=== PATIENT | female | born 1945 | race Caucasian/White ===

== ENCOUNTER 2016-09-14 21:04 | Inpatient (IN) | payer MEDICARE, BC ==
[~2016-09-14] VITALS: Ht 154.9 cm; Wt 79.9 kg
[~2016-09-14 21:04] MED LIST: ALEN70TA15 PO; ASPI-650 PO; CELE200C PO; CRAN400C PO; FLUT1DIS23 IH; GUAI600T21 PO; LACT10SO55 PO; LEVO125T75 PO; LOVA10TA63 PO; OLOP30.5 NS; ZAFI20TA5 PO
[2016-09-14] MEDS ORDERED: ONDANSETRON 4 MG INJ IV STA (22:30)
[2016-09-14] MEDS ORDERED: BELLADONNA/PHENOBARBITAL TAB PO STA (22:30)
[2016-09-14] MEDS ORDERED: CEFTRIAXONE 1 GM/50 ML (PMX) 50 ML IVPB ONE (22:30)
[2016-09-14] MEDS ORDERED: morphine 4 MG/ML VIAL IV STA (22:30)
[2016-09-14] MEDS ORDERED: LIDOCAINE/MYLANTA 40 ML BTL PO STA (22:30)
[2016-09-14] MEDS ORDERED: SOD CHLORIDE 0.9% 1,000 ML IV STA (22:30)
[2016-09-14 23:10] LABS: ADD SCAN DIFF NO
[2016-09-14 23:15] LABS: BASOPHILS % 0.4 % (0.0-2.0); EOSINOPHILS # 0.3 10^3/ul (0.0-0.5); EOSINOPHILS % 3.1 % (0.0-7.0); HEMATOCRIT 42.7 % (37.0-47.0); LYMPHOCYTES % 18.8 % (15.0-51.0); MEAN CORPUSCULAR HEMOGLOBIN 31.7 pg (29.0-33.0); MEAN CORPUSCULAR HGB CONC 32.8 g/dl (32.0-37.0); MEAN CORPUSCULAR VOLUME 96.6 fl (82.0-101.0); MONOCYTE # 0.6 10^3/ul (0.3-0.9); MONOCYTES % 5.9 % (0.0-11.0); NEUTROPHIL # 7.7 10^3/ul (1.6-7.5); NEUTROPHILS % 71.4 % (39.0-77.0); PLATELET COUNT 299 10^3/UL (140-415); RED BLOOD COUNT 4.42 10^6/ul (4.20-5.40); RED CELL DISTRIBUTION WIDTH 13.2 % (11.5-14.5); WHITE BLOOD COUNT 10.8 10^3/ul (4.8-10.8)
[2016-09-14 23:25] LABS: ALBUMIN 4.2 g/dl (3.3-4.9); INR 0.94; PROTIME 12.6 Sec (12.2-14.2)
[2016-09-14 23:26] LABS: CHLORIDE 100 mmol/L (97-110); POTASSIUM 4.5 mmol/L (3.5-5.1); SODIUM 143 mmol/L (135-144)
[2016-09-14 23:28] LABS: ANION GAP 19 (8-16); ASPARTATE AMINO TRANSFERASE 33 IU/L (15-46); BILIRUBIN,INDIRECT 0.8 mg/dl (0-1.1); BILIRUBIN,TOTAL 0.8 mg/dl (0.2-1.3); CARBON DIOXIDE 29 mmol/L (21-31); CREATININE 0.65 mg/dl (0.44-1.00)
[2016-09-14 23:29] LABS: ALANINE AMINOTRANSFERASE 30 IU/L (13-69); ALBUMIN/GLOBULIN RATIO 1.44; ALKALINE PHOSPHATASE 69 IU/L (42-121); BLOOD UREA NITROGEN 14 mg/dl (7-20); CALCIUM 9.8 mg/dl (8.4-10.2); GLUCOSE 106 mg/dl (70-220); TOTAL PROTEIN 7.1 g/dl (6.1-8.1)
[2016-09-14 23:45] LABS: ADD UMIC YES; URINE BILIRUBIN (Dip) NEGATIVE (NEGATIVE); URINE BLOOD (Dip) TRACE (NEGATIVE); URINE COLOR YELLOW (YELLOW); URINE GLUCOSE (Dip) NEGATIVE (NEGATIVE); URINE KETONES (Dip) 40 (NEGATIVE); URINE LEUKOCYTE ESTERASE (Dip) NEGATIVE (NEGATIVE); URINE NITRITE (Dip) NEGATIVE (NEGATIVE); URINE TOTAL PROTEIN (Dip) NEGATIVE (NEGATIVE); URINE UROBILINOGEN (Dip) 0.2 E.U./dL (0.1-1.0)
[2016-09-14 23:59] LABS: SQUAMOUS EPITHELIAL CELL,UR RARE; URINE RBCS 0-2 /HPF (0)
[2016-09-15 00:01] LABS: TROPONIN-I < 0.012 ng/ml (0.00-0.12)
--- NOTE | 2016-09-15 00:31 | RADRPT ---
PROCEDURE: CT ABDOMEN/PELVIS WITHOUT CONTRAST CLINICAL INDICATION: 71-year-old female with abdominal pain. TECHNIQUE: The study was performed utilizing a GE Xradiapeed VCT 64-slice CT scanner. Direct axia l sections were obtained through the abdomen and pelvis without the use of intravenous contrast mate rial. Sagittal and coronal reformations were obtained. Automated exposure control and iterative max nstruction techniques were utilized for this examination. [facility] CTD/vol = 16.9 mGy; Total Exam DLP = 960.2 mGy-cm. COMPARISON: None. FINDINGS: There is mild bibasilar subsegmental atelectasis and/or scarring. Calcifications are seen within th e atelectatic left lung base. There is no evidence for significant pleural effusion. There is mild free fluid surrounding the right lobe of the liver as well as in the peritoneum and pelvis. The li filippo has a normal size and contour without focal areas of abnormal density. No intrahepatic nor extra hepatic biliary ductal dilatation is seen. The gallbladder is distended and contains small layering gallstones without significant wall thickening. The pancreas is without areas of abnormal attenuati on. The spleen is identified and has a normal size without abnormal density. The adrenal glands are unremarkable. The kidneys are without abnormal density. No hydroureteronephrosis nor nephroureterol ithiasis is evident. The urinary bladder contains urine. There is moderate hiatal hernia. There is evidence for prior gastric bypass surgery. There is a mesh within the supraumbilical mid ventral abdominal wall from prior hernia repair. There is zfeq-zj-jdoqcymp dilated loops of small bowel wit h fecalization with transition point within the mid abdomen at the level of the mesh most likely sec ondary to adhesions resulting in a small bowel obstruction which may be partial. Mild diffuse infilt ration of the mesentery within this region. The small bowel distal to this appears to be decompress ed. There is mild retained stool within the ascending colon. Multiple diverticula are seen scatter ed throughout the entire colon without surrounding inflammatory changes. The appendix is visualized and is without abnormal thickening or surrounding inflammatory reaction. The uterus is unremarkable. The aortoiliac vessels are diffusely calcified but without aneurysmal dilatation. Degenerative ole nges are seen within the spine. Moderate degenerative changes are seen within the right hip joint w ith subchondral this is sclerosis. There is a left hip arthroplasty present. IMPRESSION: 1. Mild bibasilar subsegmental atelectasis and/or scarring. 2. Mild free fluid throughout the abdomen and pelvis. 3. Cholelithiasis. 4. Moderate hiatal hernia. 5. Status post gastric bypass. 6. Mesh supraumbilical mid ventral abdominal wall from prior hernia repair. 7. Tuqm-lq-kzzmcqsmfe dilated loops of proximal small bowel with fecalization extending to mid abdo men where there is infiltration of the mesentery and transition point consistent with a small bowel obstruction which may be partial. This most likely is secondary to adhesions. 8. Diffuse colonic diverticulosis. 9. No CT evidence for appendicitis. 10. Vascular calcifications. 11. Degenerative changes within the spine and right hip joint. 12. Status post left hip arthroplasty. .Isidoro Haro MD, MD Date Time Electronically viewed and signed by .Isidoro Haro MD, MD on 09/15/2016 00:30 .M/
[2016-09-15] MEDS ORDERED: PIPER-TAZO 3.375 GM IV (PMX) 100 ML IVPB ONE (01:00)
--- NOTE | 2016-09-15 01:21 | ERA ---
ER Documentation Chief Complaint Date/Time DATE: 09/15/16 TIME: 01:15 Chief Complaint abdominal pain x 1 day. also c/o painful urination HPI This is a 71-year-old woman complaining of diffuse severe abdominal pain and cramping throughout the day mostly located to the epigastrium. She also had an episode of vomiting after lunch and could not eat dinner. She has a long history of gastroesophageal reflux disease, gastritis, and recent left inguinal herniorrhaphy about 3 months ago. Patient suspects she has a urinary tract infection as well due to recent dysuria. Patient denies chest pain or shortness of breath, no fevers or chills, no diarrhea, no headache or blurry vision. ROS All systems reviewed and are negative except as per history of present illness. Medications Home Meds Reported Medications Cranberry (Cranberry) 400 Mg Capsule, 400 MG PO EVERY THREE DAYS 04/09/12 Guaifenesin* (Mucinex*) 600 Mg Tablet.sa, 600 MG PO BID 04/09/12 Aspirin (Aspirin) 81 Mg Tablet, 81 MG PO DAILY 04/09/12 Olopatadine* (Patanase* Nasal) 30.5 Gm [place].pump, 30.5 GM NS BID 04/09/12 Lactulose (Lactulose) 10 G/15 Ml Solution, 10 G PO BID 04/09/12 Alendronate Sodium (Fosamax) 70 Mg Tablet, 70 MG PO every 2weeks 04/09/12 Fluticasone/Salmeterol (Advair 250-50 Diskus) 1 Disk W/Dev Disk.w.dev, 1 DISK IH BID 04/09/12 Celecoxib* (Celebrex*) 200 Mg Capsule, 200 MG PO TID 04/09/12 Lovastatin* (Lovastatin*) 10 Mg Tablet, 10 MG PO DAILY 04/09/12 Zafirlukast* (Accolate*) 20 Mg Tablet, 20 MG PO BID 04/09/12 Levothyroxine Sodium* (Levothyroxine Sodium*) 125 Mcg Tablet, 125 MCG PO DAILY 04/09/12 Allergies Allergies: Coded Allergies: No Known Allergy (Unverified , 09/14/16) PMhx/Soc Gastroesophageal reflux disease, left inguinal herniorrhaphy in June 2016, hypothyroidism, asthma, cholelithiasis History of Surgery: Yes (s/p ventral hernia repair) Anesthesia Reaction: Yes Hx Neurological Disorder: No Hx Respiratory Disorders: Yes (ASTHMA) Hx Cardiac Disorders: No Hx Psychiatric Problems: No Hx Miscellaneous Medical Probl: Yes (L inguinal hernia,gastric bypass, hypothyroidims,asthma,rosacea,hay fever,GE) Hx Alcohol Use: Yes (FORMER) Hx Substance Use: No Hx Tobacco Use: No Smoking Status: Never smoker FmHx Family History: No diabetes Physical Exam Vitals Vital Signs Date Time Temp Pulse Resp B/P Pulse Ox O2 Delivery O2 Flow Rate FiO2 09/14/16 21:11 97.8 116 20 122/72 98 Physical Exam GENERAL: Well-developed, well-nourished, well-hydrated, in no apparent distress , looks nontoxic in appearance. Afebrile HEENT: Moist mucous membranes, pink conjunctiva, no cervical spine tenderness or step-off deformities, no goiter, no jaundice or icterus, extraocular movements intact without pain. No submandibular induration, and no pharyngeal erythema NEURO: Alert and oriented 3, cranial nerves II through XII intact bilaterally, pupils equal round reactive to light, no focal deficits or facial asymmetry, sensation intact distally Strength 5/5 in upper and lower extremities bilaterally CARDIAC: Regular rate and rhythm, no murmurs rubs or gallops LUNGS: Clear bilaterally no wheezing crackles or stridor ABDOMEN: Mild to moderate tenderness to touch throughout the abdomen with voluntary guarding, no rigidity or rebound, no psoas sign no obturator sign. Normoactive bowel sounds SKIN: Warm and dry to touch, no abrasions, contusions, or hematomas, no lacerations, no ecchymosis, no target lesions, and without ulcers EXTREMITIES: No clubbing cyanosis or edema, calves are bilaterally symmetrical, no Homans sign, no popliteal cord sign. Distal pulses equal and bilateral PSYCH: Normal affect without agitation or irritability Result Diagram: 09/14/16225309/14/162253 Results 24 hrs Laboratory Tests Test 09/14/16 22:54 09/14/16 23:20 Alanine Aminotransferase (ALT/SGPT) 30IU/L Albumin 4.2g/dl Albumin/Globulin Ratio 1.44 Alkaline Phosphatase 69IU/L Anion Gap 19 Aspartate Amino Transf (AST/SGOT) 33IU/L Basophils # 0.010^3/ul Basophils % 0.4% Blood Urea Nitrogen 14mg/dl Calcium Level 9.8mg/dl Carbon Dioxide Level 29mmol/L Chloride Level 100mmol/L Creatinine 0.65mg/dl Direct Bilirubin 0.00mg/dl Eosinophils # 0.310^3/ul Eosinophils % 3.1% Globulin 2.90g/dl Glucose Level 106mg/dl Hematocrit 42.7% Hemoglobin 14.0g/dl INR International Normalized Ratio 0.94 Indirect Bilirubin 0.8mg/dl Lipase 58U/L Lymphocytes # 2.010^3/ul Lymphocytes % 18.8% Mean Corpuscular Hemoglobin 31.7pg Mean Corpuscular Hemoglobin Concent 32.8g/dl Mean Corpuscular Volume 96.6fl Mean Platelet Volume 10.0fl Monocytes # 0.610^3/ul Monocytes % 5.9% Neutrophils # 7.710^3/ul Neutrophils % 71.4% Nucleated Red Blood Cells # 0.010^3/ul Nucleated Red Blood Cells % 0.0/100WBC Platelet Count 48381^3/UL Potassium Level 4.5mmol/L Prothrombin Time 12.6Sec Prothrombin Time Ratio 1.0 Red Blood Count 4.4210^6/ul Red Cell Distribution Width 13.2% Sodium Level 143mmol/L Total Bilirubin 0.8mg/dl Total Protein 7.1g/dl Troponin I < 0.012ng/ml White Blood Count 10.810^3/ul Urine Bilirubin NEGATIVE Urine Clarity CLEAR Urine Color YELLOW Urine Glucose NEGATIVE% Urine Hemoglobin TRACE Urine Ketones 40 Urine Leukocyte Esterase NEGATIVE Urine Microscopic RBC 0-2/HPF Urine Microscopic WBC NONE SEEN/HPF Urine Nitrite NEGATIVE Urine Specific [place] 1.025 Urine Squamous Epithelial Cells RARE Urine Total Protein NEGATIVE Urine Urobilinogen 0.2 E.U./dL Urine pH 5.5 Current Medications Medications (Trade) Dose Ordered Sig/Idris Route PRN Reason Start Time Stop Time Status Last Admin Dose Admin Sodium Chloride (NS) 1,000 ml @ 1,000 mls/hr Q1H STAT IV 09/14/16 22:30 09/14/16 23:29 DC 09/14/16 22:44 Morphine Sulfate (morphine) 4 mg ONCE STAT IV 09/14/16 22:30 09/14/16 22:32 DC 09/14/16 22:43 Ondansetron HCl (Zofran Inj) 4 mg ONCE STAT IV 09/14/16 22:30 09/14/16 22:32 DC 09/14/16 22:43 Miscellaneous Medication (Gi Cocktail (2)) 40 ml ONCE STAT PO 09/14/16 22:30 09/14/16 22:32 DC 09/14/16 22:44 Belladonna/ Phenobarbital 2 tab 2 tab ONCE STAT PO 09/14/16 22:30 09/14/16 22:32 DC 09/14/16 22:44 Ceftriaxone Sodium 50 ml @ 100 mls/hr ONCE ONCE IVPB 09/14/16 22:30 09/14/16 22:59 DC 09/14/16 22:58 Piperacillin Sod/ Tazobactam Sod (Zosyn 3.375gm/ 100 ml (Pmx)) 100 ml @ 200 mls/hr ONCE ONCE IVPB 09/15/16 01:00 09/15/16 01:00 DC Procedures/MDM IV line was established patient was placed on consumer safety inspector rhythm strip revealed a sinus rhythm at about 80 bpm with upright P and T waves. Patient was afebrile. Blood and urine cultures have been ordered results are pending I will follow-up. I administered 1 L normal saline intravenously, morphine 4 mg IV, Zofran 4 mg IV , and a GI cocktail 50 cc p.o. with good response. Patient was concerned for urinary tract infection and I treated her here with ceftriaxone 1 g IV. EKG performed, read by me revealed a normal sinus rhythm at 85 bpm, normal axis , with a right bundle teresa block QRS duration 120 ms, no concerning ST elevations or depressions noted. CBC and electrolytes were normal, liver function tests were normal, troponin was negative. Urine analysis was negative for infection. CT scan of the abdomen and pelvis was performed revealing a small bowel obstruction in the mid abdomen with mild intra-abdominal free fluid and cholelithiasis. Please refer to radiologist dictation for full report. I ordered NG tube placement. Patient's vital signs are normal and she remains afebrile although given her physical exam findings and symptoms today she will be admitted to [facility] for continued medical management and surgical consultation. I spoke to the patient's PMD Dr. Rodas and he agreed to plan. We will admit the patient for continued medical management and surgical consultation. Departure Diagnosis: Primary Impression: Abdominal pain Qualified Code: R10.84 - Generalized abdominal pain Additional Impressions: Vomiting Qualified Code: R11.2 - Non-intractable vomiting with nausea, unspecified vomiting type Small bowel obstruction due to adhesions Condition: RAVEN Capone MD Sep 15, 2016 01:21
[2016-09-15] MEDS ORDERED: LIDOCAINE 2% JELLY 5 ML TOP ONE (01:30)
[2016-09-15 03:17] VITALS: Ht 154.9 cm; Wt 79.9 kg
[2016-09-15 03:36] VITALS: BP 140/73; RESP 18
[2016-09-15 03:59] VITALS: BP 140/73; PULSE 92; RESP 18
--- NOTE | 2016-09-15 04:08 | RADRPT ---
PROCEDURE: CHEST - 1 VIEW CLINICAL INDICATION: 71-year-old female for nasogastric tube placement. TECHNIQUE: A single frontal AP semi-erect view of the chest was performed portably. The images we re reviewed on a PACS workstation. COMPARISON: CT abdomen/pelvis September 15, 2016. FINDINGS: There is a nasogastric tube identified with the distal aspect coiled at the esophagogastric junction region. The cardiomediastinal silhouette is within normal limits. The thoracic aortic arch is jennifer cified. There is mild bibasilar subsegmental atelectasis. There is no evidence for an infiltrate. There is no evidence for congestive heart failure. There is no evidence for pneumothorax. The osseo us structures are intact. IMPRESSION: 1. Nasogastric tube with the distal aspect coiled in the patients hiatal hernia at the esophagogast sara junction region. 2. Calcified thoracic aortic arch. 3. Mild bibasilar subsegmental atelectasis. CALL REPORT: A call report was made to [facility] ER Dr. Dhillon on September 15, 2016 at 04:04 a.m. .Isidoro Haro MD, MD Date Time Electronically viewed and signed by .Isidoro Haro MD, on 09/15/2016 04:08 .M/
[2016-09-15] MEDS ORDERED: ACETAMINOPHEN 650 MG SUPP PR PRN (04:30)
[2016-09-15] MEDS ORDERED: HYDROmorphONE 1 MG/ML SYG IV PRN (04:30)
[2016-09-15] MEDS ORDERED: NACL 0.9% 3 ML SYG IV SCH (04:30)
[2016-09-15] MEDS: DEXTROSE 5%-0.45% NACL 1,000 ML IV SCH ×3 (04:44→21:12)
[2016-09-15] MEDS: ONDANSETRON 4 MG INJ IV PRN (05:32)
[2016-09-15] MEDS: LEVOTHYROXINE 100 MCG VIAL IV SCH (05:33)
[2016-09-15] MEDS ORDERED: PANTOPRAZOLE 40 MG INJ IV SCH (06:00)
[2016-09-15 07:30] VITALS: BP 131/79; RESP 16
[2016-09-15] MEDS: HYDROmorphONE 1 MG/ML SYG IV PRN ×4 (08:32→22:20)
[2016-09-15] MEDS: SALMETEROL/FLUTICASONE 250/50 INHA INH SCH ×2 (08:35→21:11)
[2016-09-15 08:45] LABS: BASOPHILS % 0.1 % (0.0-2.0); HEMATOCRIT 43.5 % (37.0-47.0); HEMOGLOBIN 14.8 g/dl (12.0-16.0); LYMPHOCYTES # 0.6 10^3/ul (0.8-2.9); LYMPHOCYTES % 5.8 % (15.0-51.0); MEAN CORPUSCULAR HGB CONC 34.1 g/dl (32.0-37.0); MEAN CORPUSCULAR VOLUME 93.8 fl (82.0-101.0); MONOCYTE # 0.3 10^3/ul (0.3-0.9); MONOCYTES % 3.2 % (0.0-11.0); NEUTROPHIL # 9.3 10^3/ul (1.6-7.5); NEUTROPHILS % 90.9 % (39.0-77.0); PLATELET COUNT 282 10^3/UL (140-440); RED BLOOD COUNT 4.64 10^6/ul (4.20-5.40); RED CELL DISTRIBUTION WIDTH 13.6 % (11.5-14.5); UNCORRECTED WBC 10.2 10^3/ul (4.8-10.8); WHITE BLOOD COUNT 10.2 10^3/ul (4.8-10.8)
[2016-09-15 08:48] LABS: CONDITION 1; LH ANALYZER COMMENTS 1
[2016-09-15 08:54] LABS: BILIRUBIN,INDIRECT 0.8 mg/dl (0-1.1); BILIRUBIN,TOTAL 0.8 mg/dl (0.2-1.3); CREATININE 0.53 mg/dl (0.44-1.00); TOTAL PROTEIN 6.5 g/dl (6.1-8.1)
[2016-09-15 08:55] LABS: MAGNESIUM 2.1 mg/dl (1.7-2.5)
[2016-09-15 09:28] LABS: ALBUMIN 3.7 g/dl (3.3-4.9); ALBUMIN/GLOBULIN RATIO 1.32; POTASSIUM 4.5 mmol/L (3.5-5.1)
--- NOTE | 2016-09-15 10:18 | PREOPHP ---
DATE OF ADMISSION: 09/15/2016 REASON FOR ADMISSION: Abdominal pain. HISTORY OF PRESENT ILLNESS: This 71-year-old female was in her usual state of health until yesterda y when she developed diffuse abdominal pain. The patient initially went to an urgent care center an d then was referred here to the emergency room at [facility]. The pain was diffus e, severe, cramping, mostly located in the epigastrium. She now describes it as diffuse. She also had an episode of vomiting after lunch and could not eat dinner. She has a long history of gastroes ophageal reflux disease, gastritis and did have a left inguinal hernia repair about [address] Joshua. The patient denies any chest pain, shortness of breath, fever, chills. She said she d id have a bowel movement yesterday and she has been having bowel movements. She does have constipat ion and is on stool softeners and/or daily lactulose. CURRENT MEDICATIONS: Includes the following 1. Cranberry capsules of 400 mg every 3 days. 2. Mucinex 600 mg twice a day. 3. Aspirin 81 mg a day. 4. Patanase nasal spray in each nostril twice a day. 5. Lactulose 10 grams twice a day. 6. Alendronate 70 mg every 2 weeks. 7. Fluticasone, salmeterol or Advair 250/50 one inhalation twice a day. 8. Celebrex 200 mg a day. 9. Lovastatin 10 mg a day. 10. Accolate 20 mg twice a day. 11. Levothyroxine 125 mcg a day. PAST MEDICAL HISTORY: Remarkable for gastric bypass surgery in 2004, hypothyroidism, asthma, rosace a, increased eye pressure, hayfever, gastroesophageal reflux disease. ALLERGIES: SULFA. PAST SURGICAL HISTORY: Gastric bypass surgery in 2004, plastic surgery to remove skin from abdomen, tonsillectomy, left inguinal hernia repair by laparoscopic procedure 06/15/2016. FAMILY HISTORY: Father unknown. Mother unknown. SOCIAL HISTORY: The patient does not smoke. 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 She does not drink alcohol. 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 REVIEW OF SYSTEMS: Essentially unremarkable except for that mentioned above. In addition, : She has been having some frequency of urination over the past several weeks with urgency. PHYSICAL EXAMINATION: GENERAL: At this time reveals a well-developed female in no apparent distress. VITAL SIGNS: Temperature 98.9, pulse of 93, respirations 16, blood pressure 131/79, O2 saturation 9 8% on room air. HEENT: Head normocephalic. EYES: Extraocular muscles intact. NOSE AND MOUTH: Normal. NECK: Supple. No neck vein distention. LUNGS: Clear to auscultation. HEART: Regular rhythm. No murmurs, gallops or rubs. ABDOMEN: Distended. She is tender with fullness in the left upper abdomen and in the left lower ab domen. Bowel sounds are hypoactive. EXTREMITIES: She has no peripheral edema. IMPRESSION: 1. Small-bowel obstruction. The patient presents with abdominal pain since yesterday. A CAT scan of the abdomen was done which shows dilated loops of small bowel consistent with a bowel obstruction . The radiologist commented that this may be a partial small-bowel obstruction. The patient has bolden d several abdominal surgeries and certainly is at risk of having adhesions and small-bowel obstructi on. 2. Asthma. 3. Hypothyroidism. 4. Gastroesophageal reflux disease. PLAN: 1. Keep patient n.p.o. 2. IV fluids. 3. Gastroenterology consultation with Dr. Meza and surgical consultation with Dr. Joshua. 4. The patient has an NG tube in place; however, it is curled in her hiatal hernia and is not in th e stomach. This will be removed for now until the analysis consultant is able to see her and then tr y and replace it if he thinks it is necessary. I did discuss of all of this with the patient and wi th the patient's daughter. Dictated By: ANNIE STOUT MD, ND/GINA Conf#: [id number] DID#: [id number]
--- NOTE | 2016-09-15 12:37 | CONS ---
Date/Time of Note Date/Time of Note DATE: 09/15/16 TIME: 12:26 Assessment/Plan Assessment/Plan Chief Complaint/Hosp Course IMPRESSION: 1. Small-bowel obstruction: A CAT scan of the abdomen was done which shows dilated loops of small bowel consistent with a bowel obstruction. Likely due to adhesions secondary to several abdominal surgeries and certainly is at risk of having adhesions and small-bowel obstruction. 2. Gastroesophageal reflux disease. 3. nausea and vomiting secondary to #1 4. hiatal hernia, preventing insertion of NGT PLAN: 1. SBFT 2. continue IV fluids. 3. increase PPI to bid dosing 4. if n/v not improving and SBFT showed persistence of SBO, will do EGD with placement of NGT for decompression. Problems: Consultation Date/Type/Reason Admit Date/Time Sep 15, 2016 at 01:10 Type of Consultation: GI Hx of Present Illness 71-year-old female admitted for SBO. 2 days ago, patient developed diffuse, severe, cramping, mostly located in the epigastrium. She also had nausea and vomiting after lunch and could not eat dinner. She has a long history of gastroesophageal reflux disease, gastritis, seen by Dr. Baron and given omeprazole, but patient says omeprazole is not helping with her epigastric pain. She also has left inguinal hernia repair about [address] Joshua. The patient denies any chest pain, shortness of breath, fever, chills. Last BM was 2 days ago. She does have constipation and is on stool softeners and/or daily lactulose. Currently she is not passing gas or having BM. She is no longer nauseous now given her NPO status. All point ROS administered, pertinent positives and negatives in HPI otherwise negative. Past Medical History asthma, constipation, hayfever, glaucoma Medical History: GERD, hypothyroid Past Surgical History 1. gastric bypass surgery in 2004 2. tonsillectomy 3. left inguinal hernia repari 06/15/16 Family History Significant Family History: no pertinent family hx Social History Alcohol Use: none Smoking Status: Former smoker Drug Use: none Exam/Review of Systems Vital Signs Vitals Vital Signs Date Time Temp Pulse Resp B/P Pulse Ox O2 Delivery O2 Flow Rate FiO2 09/15/16 07:30 98.9 93 16 131/79 98 09/15/16 03:59 Room Air Intake and Output 09/14/16 09/14/16 09/15/16 15:00 23:00 07:00 Intake Total 31 ml Output Total 100 ml Balance -69 ml Exam Constitutional: alert, oriented, well developed Psych: nl mood/affect, no complaints Head: atraumatic, normocephalic Eyes: nl conjunctiva, nl lids, nl sclera ENMT: mucosa pink and moist, nl external ears & nose, nl lips & teeth, nl nasal mucosa & septum Neck: non-tender, supple Respiratory: clear to auscultation, normal air movement Cardiovascular: nl pulses, regular rate and rhythm Gastrointestinal: bowel sounds (reduced), distended, soft, tender (epigastric, left sided, lower abdomen) Neurological: nl mental status, nl speech, nl strength Results Result Diagram: 09/15/1630 09/15/16 0830 Results 24 hrs Laboratory Tests Test 09/14/16 22:54 09/14/16 23:20 09/15/16 08:30 Alanine Aminotransferase (ALT/SGPT) 30 30 Albumin 4.2 3.7 Albumin/Globulin Ratio 1.44 1.32 Alkaline Phosphatase 69 63 Anion Gap 19 H 16 Aspartate Amino Transf (AST/SGOT) 33 30 Basophils # 0.0 0.0 Basophils % 0.4 0.1 Blood Urea Nitrogen 14 13 Calcium Level 9.8 9.0 Carbon Dioxide Level 29 25 Chloride Level 100 104 Creatinine 0.65 0.53 Direct Bilirubin 0.00 0.00 Eosinophils # 0.3 0.0 Eosinophils % 3.1 0.0 Globulin 2.90 2.80 Glucose Level 106 177 Hematocrit 42.7 # 43.5 Hemoglobin 14.0 # 14.8 INR International Normalized Ratio 0.94 Indirect Bilirubin 0.8 0.8 Lipase 58 Lymphocytes # 2.0 0.6 L Lymphocytes % 18.8 5.8 L Mean Corpuscular Hemoglobin 31.7 32.0 Mean Corpuscular Hemoglobin Concent 32.8 34.1 Mean Corpuscular Volume 96.6 93.8 Mean Platelet Volume 10.0 # 8.0 Monocytes # 0.6 0.3 Monocytes % 5.9 3.2 Neutrophils # 7.7 H 9.3 H Neutrophils % 71.4 90.9 H Nucleated Red Blood Cells # 0.0 0.0 Nucleated Red Blood Cells % 0.0 0.0 Platelet Count 299 282 # Potassium Level 4.5 4.5 Prothrombin Time 12.6 Prothrombin Time Ratio 1.0 Red Blood Count 4.42 # 4.64 Red Cell Distribution Width 13.2 13.6 Sodium Level 143 140 Total Bilirubin 0.8 0.8 Total Protein 7.1 6.5 Troponin I < 0.012 White Blood Count 10.8 10.2 Urine Bilirubin NEGATIVE Urine Clarity CLEAR Urine Color YELLOW Urine Glucose NEGATIVE Urine Hemoglobin TRACE Urine Ketones 40 Urine Leukocyte Esterase NEGATIVE Urine Microscopic RBC 0-2 Urine Microscopic WBC NONE SEEN Urine Nitrite NEGATIVE Urine Specific [place] 1.025 Urine Squamous Epithelial Cells RARE Urine Total Protein NEGATIVE Urine Urobilinogen 0.2 E.U./dL Urine pH 5.5 Magnesium Level 2.1 Medications Medications Current Medications Dextrose/Sodium Chloride (D5-1/2ns) 1,000 ml @ 125 mls/hr Q8H IV Last administered on 09/15/16 12:08; Admin Dose 125 MLS/HR; Start 09/15/16 at 04:11 Ondansetron HCl (Zofran Inj) 4 mg Q6H PRN IV NAUSEA AND/OR VOMITING Last administered on 09/15/16 05:32; Admin Dose 4 MG; Start 09/15/16 at 04:30 Acetaminophen (Tylenol Supp) 650 mg Q6H PRN AL PAIN LEVEL 1-3 OR FEVER; Start 09/15/16 at 04:30 Pantoprazole (Protonix Iv) 40 mg DAILY@06 IV Last administered on 09/15/16 05: 25; Admin Dose 40 MG; Start 09/15/16 at 06:00 Salmeterol Xinafoate/ Fluticasone (Advair 250/50 Diskus) rinse mouth out after e... BID INH Last administered on 09/15/16 08:35; Admin Dose 1 INH; Start 06/21 at 09:00; Stop 09/24/16 at 08:59 Miscellaneous Information 30.5 gm BID NS ; Start 09/15/16 at 09:00; Status UNV Levothyroxine Sodium (Synthroid Iv) 50 mcg DAILY@06 IV Last administered on 05:33; Admin Dose 50 MCG; Start 09/15/16 at 06:00 Hydromorphone HCl (Dilaudid) 1 mg Q4H PRN IV SEVERE PAIN LEVEL 7-10 Last administered on 09/15/16t 08:32; Admin Dose 1 MG; Start 09/15/16 at 08:30 RAVEN CHANEY MD Sep 15, 2016 12:37
[2016-09-15] MEDS: PANTOPRAZOLE 40 MG INJ IV SCH (17:58)
[2016-09-15 21:03] VITALS: BP 93/52; RESP 18
[2016-09-16] MEDS: HYDROmorphONE 1 MG/ML SYG IV PRN ×5 (02:21→19:58)
[2016-09-16] MEDS: LEVOTHYROXINE 100 MCG VIAL IV SCH (05:34)
[2016-09-16] MEDS: DEXTROSE 5%-0.45% NACL 1,000 ML IV SCH ×3 (05:34→20:11)
[2016-09-16] MEDS: PANTOPRAZOLE 40 MG INJ IV SCH ×2 (05:35→19:57)
[2016-09-16 08:03] VITALS: BP 99/55; RESP 17
--- NOTE | 2016-09-16 08:54 | CONS ---
DATE OF ADMISSION: 09/15/2016 DATE OF CONSULTATION: 09/15/2016 TYPE OF CONSULTATION: Surgical. REFERRING PHYSICIAN: Leonel Rodas MD CHIEF COMPLAINT: 1. Abdominal pain with nausea and vomiting. 2. Possible partial small-bowel obstruction. 3. BMI of 33. HISTORY OF PRESENT ILLNESS: Ms. Kylie Hall is a 71-year-old female with multiple comorbidities who is well known to me. She had a laparoscopic ventral and inguinal hernia repair on 06/15/2016 by my self. She presents, however, with abdominal pain that is diffuse since yesterday, associated with c rampy, severe pain; however, mostly in the epigastrium. There is also associated nausea and vomitin g that is nonbilious, nonbloody. No dysuria. She had a bowel movement and flatus yesterday. She d oes have a history of constipation. No dysuria or vaginal discharge. No chest pain, no shortness o f breath. No fevers or chills. No bloating. No trauma or sick contacts. PAST MEDICAL HISTORY: 1. Obesity, currently BMI of 33. 2. Hyperthyroidism. 3. Asthma. 4. Rosacea. 5. Increase eye pressure. 6. Hayfever. 7. GERD. 8. Constipation. 9. Hernias. PAST SURGICAL HISTORY: 1. Gastric bypass, 2004. 2. Laparoscopic ventral and inguinal hernia repair, 06/15/2016. 3. Abdominoplasty. 4. Tonsillectomy. FAMILY HISTORY: Noncontributory. SOCIAL HISTORY: No current alcohol, drugs or tobacco. However used recreational drugs and alcohol many years ago. 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 REVIEW OF SYSTEMS: A 12-point of systems negative for unless addressed in the HPI. PHYSICAL EXAMINATION: VITAL SIGNS: Temperature is 98.9, pulse 90s, blood pressure 131/79. GENERAL: No acute distress, comfortable, obese. HEENT: Pupils equal, reactive. No scleral icterus. Mucous membranes are moist. NECK: Supple, no crepitus, no JVD. PULMONARY: Normal respiratory effort. No wheezing. CARDIAC: S1, S2 present and irregular. ABDOMEN: Soft, minimally distended. Tender mostly on the left side. No rebound, no guarding, not rigid. No palpable hernias. EXTREMITIES: No edema. VASCULAR: Capillary refill is 2 seconds. NEUROLOGIC: Alert, oriented, moves all 4 extremities grossly. LABORATORY AND RADIOGRAPHIC: As per chart and HPI. No leukocytosis. No anemia. Chemistries withi n normal limits. ASSESSMENT AND PLAN: 1. Abdominal pain with nausea, vomiting, with CT findings suggestive of possible partial bowel obst ruction versus ileus. Continue n.p.o. Will recommend a small bowel follow through. This is probab ly adhesive in nature. Recommend out of bed and ambulation. 2. Hypothyroidism, please replete hormones. 3. Obesity, status post gastric bypass. Encouraged eventual nutrition optimization. Encourage exe rcise. 4. Gastroesophageal reflux disease history. Continue diet and lifestyle optimization. 5. Asthma. Continue medical management. Dictated By: SURY RAMIREZ/GINA Conf#: [id number] DID#: [id number]
[2016-09-16] MEDS: OLOPATADINE NS SCH ×2 (09:00→21:00)
[2016-09-16] MEDS: SALMETEROL/FLUTICASONE 250/50 INHA INH SCH ×2 (10:01→20:31)
[2016-09-16] MEDS: OLOPATADINE XX SCH ×2 (11:30→19:30)
[2016-09-16] MEDS: [UNRECOGNIZED DRUG - OTHER] XX SCH ×2 (11:30→19:30)
[2016-09-16 11:50] LABS: BASOPHILS % 0.4 % (0.0-2.0); EOSINOPHILS # 0.1 10^3/ul (0.0-0.5); EOSINOPHILS % 0.9 % (0.0-7.0); HEMATOCRIT 39.6 % (37.0-47.0); HEMOGLOBIN 13.2 g/dl (12.0-16.0); LYMPHOCYTES # 1.4 10^3/ul (0.8-2.9); LYMPHOCYTES % 13.9 % (15.0-51.0); MEAN CORPUSCULAR HEMOGLOBIN 31.8 pg (29.0-33.0); MEAN CORPUSCULAR HGB CONC 33.4 g/dl (32.0-37.0); MEAN CORPUSCULAR VOLUME 95.2 fl (82.0-101.0); MONOCYTE # 0.8 10^3/ul (0.3-0.9); NEUTROPHIL # 7.7 10^3/ul (1.6-7.5); NEUTROPHILS % 76.8 % (39.0-77.0); PLATELET COUNT 261 10^3/UL (140-440); RED BLOOD COUNT 4.16 10^6/ul (4.20-5.40); RED CELL DISTRIBUTION WIDTH 14.4 % (11.5-14.5); UNCORRECTED WBC 10.1 10^3/ul (4.8-10.8); WHITE BLOOD COUNT 10.1 10^3/ul (4.8-10.8)
[2016-09-16 11:51] LABS: ALBUMIN 2.8 g/dl (3.3-4.9)
[2016-09-16 11:52] LABS: POTASSIUM 5.4 mmol/L (3.5-5.1)
[2016-09-16 11:54] LABS: ALBUMIN/GLOBULIN RATIO 1.21; BILIRUBIN,INDIRECT 0.6 mg/dl (0-1.1); BILIRUBIN,TOTAL 0.6 mg/dl (0.2-1.3); CREATININE 0.59 mg/dl (0.44-1.00); TOTAL PROTEIN 5.1 g/dl (6.1-8.1)
[2016-09-16 11:55] LABS: CALCIUM 8.3 mg/dl (8.4-10.2)
[2016-09-16 12:10] LABS: CONDITION 1
--- NOTE | 2016-09-16 14:27 | CONS ---
Date/Time of Note Date/Time of Note DATE: 09/16/16 TIME: 14:24 Assessment/Plan Assessment/Plan Chief Complaint/Hosp Course IMPRESSION: 1. Small-bowel obstruction: A CAT scan of the abdomen was done which shows dilated loops of small bowel consistent with a bowel obstruction. Likely due to adhesions secondary to several abdominal surgeries and certainly is at risk of having adhesions and small-bowel obstruction. 2. Gastroesophageal reflux disease. 3. nausea and vomiting secondary to #1 4. hiatal hernia, preventing insertion of NGT PLAN: 1. Ordered SBFT. Hopefully SBFT will help to decompress the pSBO 2. continue IV fluids. 3. Continue PPI at bid dosing 4. if n/v not improving and SBFT showed persistence of SBO, will do EGD with placement of NGT for decompression. 5. Dr. Humphreys to resume care of this patient tomorrow. Problems: Consultation Date/Type/Reason Admit Date/Time Sep 15, 2016 at 01:10 Initial Consult Date Type of Consultation: GI 24 HR Interval Summary Free Text/Dictation no nausea and vomiting but not eating, still not passing gas or having BM Exam/Review of Systems Vital Signs Vitals Vital Signs Date Time Temp Pulse Resp B/P Pulse Ox O2 Delivery O2 Flow Rate FiO2 09/16/16 08:03 98.1 85 17 99/55 99 09/15/16 20:18 21 09/15/16 03:59 Room Air Intake and Output 09/15/16 09/15/16 09/16/16 15:00 23:00 07:00 Intake Total 1000 ml 1000 ml Output Total 200 ml Balance 1000 ml 800 ml Exam Constitutional: alert, oriented, well developed Psych: nl mood/affect, no complaints Head: atraumatic, normocephalic Eyes: EOMI, nl conjunctiva, nl lids ENMT: nl external ears & nose, nl lips & teeth, nl nasal mucosa & septum Neck: non-tender, supple Respiratory: clear to auscultation, normal air movement Cardiovascular: nl pulses, regular rate and rhythm Gastrointestinal: bowel sounds, distended, non-tender, soft Results Result Diagram: 09/16/162 09/16/16441 Results 24 hrs Laboratory Tests Test 09/16/16 04:42 Alanine Aminotransferase (ALT/SGPT) 27 Albumin 2.8 L Albumin/Globulin Ratio 1.21 Alkaline Phosphatase 48 Anion Gap 11 Aspartate Amino Transf (AST/SGOT) 24 Basophils # 0.0 Basophils % 0.4 Blood Urea Nitrogen 12 Calcium Level 8.3 L Carbon Dioxide Level 27 Chloride Level 102 Creatinine 0.59 Direct Bilirubin 0.00 Eosinophils # 0.1 Eosinophils % 0.9 Globulin 2.30 Glucose Level 124 # Hematocrit 39.6 Hemoglobin 13.2 Indirect Bilirubin 0.6 Lymphocytes # 1.4 Lymphocytes % 13.9 L Mean Corpuscular Hemoglobin 31.8 Mean Corpuscular Hemoglobin Concent 33.4 Mean Corpuscular Volume 95.2 Mean Platelet Volume 9.0 Monocytes # 0.8 Monocytes % 8.0 Neutrophils # 7.7 H Neutrophils % 76.8 Nucleated Red Blood Cells # 0.0 Nucleated Red Blood Cells % 0.0 Platelet Count 261 Potassium Level 5.4 H Red Blood Count 4.16 L Red Cell Distribution Width 14.4 Sodium Level 135 Thyroid Stimulating Hormone (TSH) 0.472 Total Bilirubin 0.6 Total Protein 5.1 #L White Blood Count 10.1 Medications Medications Current Medications Dextrose/Sodium Chloride (D5-1/2ns) 1,000 ml @ 125 mls/hr Q8H IV Last administered on 09/16/16 14:15; Admin Dose 125 MLS/HR; Start 09/15/16 at 04:11 Ondansetron HCl (Zofran Inj) 4 mg Q6H PRN IV NAUSEA AND/OR VOMITING Last administered on 09/15/16 05:32; Admin Dose 4 MG; Start 09/15/16 at 04:30 Acetaminophen (Tylenol Supp) 650 mg Q6H PRN [place] PAIN LEVEL 1-3 OR FEVER; Start 09/15/16 at 04:30 Salmeterol Xinafoate/ Fluticasone (Advair 250/50 Diskus) rinse mouth out after e... BID INH Last administered on 09/16/16 10:01; Admin Dose 1 INH; Start 06/21 at 09:00; Stop 09/24/16 at 08:59 Miscellaneous Information 30.5 gm BID NS ; Start 09/15/16 at 09:00; Status UNV Levothyroxine Sodium (Synthroid Iv) 50 mcg DAILY@06 IV Last administered on 05:34; Admin Dose 50 MCG; Start 09/15/16 at 06:00 Hydromorphone HCl (Dilaudid) 1 mg Q4H PRN IV SEVERE PAIN LEVEL 7-10 Last administered on 09/16/16t 10:14; Admin Dose 1 MG; Start 09/15/16 at 08:30 Miscellaneous Information (*Order Clarification Bulletin) (Olopatadine* ( Patanase* Nasal) 3... Q8H XX ; Start 09/16/16 at 11:30 RAVEN CHANEY MD Sep 16, 2016 14:27
--- NOTE | 2016-09-16 16:16 | CONS ---
Date/Time of Note Date/Time of Note DATE: 09/16/16 TIME: 15:58 Assessment/Plan Assessment/Plan Chief Complaint/Hosp Course 1. Abdominal pain , findings consistent with SBO . Patient is being seen by GI and surgery . She is having an UGI with SBO now . 2. continue IV fluids and NPO . 3. Asthma 4. hyperkalemia . Problems: Consultation Date/Type/Reason Admit Date/Time Sep 15, 2016 at 01:10 Initial Consult Date Type of Consultation: GI 24 HR Interval Summary Free Text/Dictation She continues to have abdominal pain . Exam/Review of Systems Vital Signs Vitals Vital Signs Date Time Temp Pulse Resp B/P Pulse Ox O2 Delivery O2 Flow Rate FiO2 09/16/16 08:03 98.1 85 17 99/55 99 09/15/16 20:18 21 09/15/16 03:59 Room Air Intake and Output 09/15/16 09/15/16 09/16/16 15:00 23:00 07:00 Intake Total 1000 ml 1000 ml Output Total 200 ml Balance 1000 ml 800 ml Exam Constitutional: alert, oriented, well developed Psych: nl mood/affect, no complaints Respiratory: clear to auscultation, normal air movement Cardiovascular: regular rate and rhythm Gastrointestinal: distended, tender Musculoskeletal: nl extremities to inspection Results Result Diagram: 09/16/1644109/16/16441 Results 24 hrs Laboratory Tests Test 09/16/16 04:42 Alanine Aminotransferase (ALT/SGPT) 27 Albumin 2.8 L Albumin/Globulin Ratio 1.21 Alkaline Phosphatase 48 Anion Gap 11 Aspartate Amino Transf (AST/SGOT) 24 Basophils # 0.0 Basophils % 0.4 Blood Urea Nitrogen 12 Calcium Level 8.3 L Carbon Dioxide Level 27 Chloride Level 102 Creatinine 0.59 Direct Bilirubin 0.00 Eosinophils # 0.1 Eosinophils % 0.9 Globulin 2.30 Glucose Level 124 # Hematocrit 39.6 Hemoglobin 13.2 Indirect Bilirubin 0.6 Lymphocytes # 1.4 Lymphocytes % 13.9 L Mean Corpuscular Hemoglobin 31.8 Mean Corpuscular Hemoglobin Concent 33.4 Mean Corpuscular Volume 95.2 Mean Platelet Volume 9.0 Monocytes # 0.8 Monocytes % 8.0 Neutrophils # 7.7 H Neutrophils % 76.8 Nucleated Red Blood Cells # 0.0 Nucleated Red Blood Cells % 0.0 Platelet Count 261 Potassium Level 5.4 H Red Blood Count 4.16 L Red Cell Distribution Width 14.4 Sodium Level 135 Thyroid Stimulating Hormone (TSH) 0.472 Total Bilirubin 0.6 Total Protein 5.1 #L White Blood Count 10.1 Medications Medications Current Medications Dextrose/Sodium Chloride (D5-1/2ns) 1,000 ml @ 125 mls/hr Q8H IV Last administered on 09/16/16 14:15; Admin Dose 125 MLS/HR; Start 09/15/16 at 04:11 Ondansetron HCl (Zofran Inj) 4 mg Q6H PRN IV NAUSEA AND/OR VOMITING Last administered on 09/15/16 05:32; Admin Dose 4 MG; Start 09/15/16 at 04:30 Acetaminophen (Tylenol Supp) 650 mg Q6H PRN [place] PAIN LEVEL 1-3 OR FEVER; Start 09/15/16 at 04:30 Salmeterol Xinafoate/ Fluticasone (Advair 250/50 Diskus) rinse mouth out after e... BID INH Last administered on 09/16/16 10:01; Admin Dose 1 INH; Start 06/21 at 09:00; Stop 09/24/16 at 08:59 Miscellaneous Information 30.5 gm BID NS ; Start 09/15/16 at 09:00; Status UNV Levothyroxine Sodium (Synthroid Iv) 50 mcg DAILY@06 IV Last administered on 05:34; Admin Dose 50 MCG; Start 09/15/16 at 06:00 Hydromorphone HCl (Dilaudid) 1 mg Q4H PRN IV SEVERE PAIN LEVEL 7-10 Last administered on 09/16/16 15:26; Admin Dose 1 MG; Start 09/15/16 at 08:30 Miscellaneous Information (*Order Clarification Bulletin) (Olopatadine* ( Patanase* Nasal) 3... Q8H XX ; Start 09/16/16 at 11:30 Eye Lubricant (Artificial Tears Oph) 2 drop QID BOTH EYES ; Start 09/16/16 at 17 :00; Status UNV ANNIE STOUT MD Sep 16, 2016 16:10
[2016-09-16] MEDS: ARTIFICIAL TEARS 15 ML OPH BOTH EYES SCH ×2 (17:00→20:30)
[2016-09-16] MEDS: CEFTRIAXONE 1 GM/50 ML (PMX) 50 ML IVPB SCH (17:00)
--- NOTE | 2016-09-16 17:44 | PN ---
Date/Time of Note Date/Time of Note DATE: 09/16/16 TIME: 17:41 Assessment/Plan Lines/Catheters IV Catheter Type (from Rust): Peripheral IV Chavez in Place (from Rust): No Assessment/Plan Chief Complaint/Hosp Course 1. Abdominal pain with nausea, vomiting, with CT findings suggestive of possible partial bowel obstruction versus ileus. -npo -ivf -SBFT -oob/ambulate 2. Hypothyroidism -replete hormones. 3. Obesity, status post gastric bypass. -eventual nutrition optimization -encourage exercise. 4. Gastroesophageal reflux disease history. -diet and lifestyle optimization. 5. Asthma. Continue medical management. Thank you, Problems: Subjective 24 Hr Interval Summary No flatus or BM. No nausea vomiting. No fevers or chills. No chest pain or shortness of breath. No visual or neurologic changes. No dysuria. No abnormal discharge. Minimal bloating. No headache. Going for small bowel follow-through today. Exam/Review of Systems Vital Signs Vitals Vital Signs Date Time Temp Pulse Resp B/P Pulse Ox O2 Delivery O2 Flow Rate FiO2 09/16/16 08:03 98.1 85 17 99/55 99 09/15/16 20:18 21 09/15/16 03:59 Room Air Intake and Output 09/15/16 09/15/16 09/16/16 15:00 23:00 07:00 Intake Total 1000 ml 1000 ml Output Total 200 ml Balance 1000 ml 800 ml Exam Free Text/Dictation GENERAL: No acute distress, comfortable, obese. HEENT: Pupils equal, reactive. No scleral icterus. Mucous membranes are moist. NECK: Supple, no crepitus, no JVD. PULMONARY: Normal respiratory effort. No wheezing. CARDIAC: S1, S2 present and irregular. ABDOMEN: Soft, minimally distended. Tender mostly on the left side. No rebound, no guarding, not rigid. No palpable hernias. EXTREMITIES: No edema. VASCULAR: Capillary refill is 2 seconds. NEUROLOGIC: Alert, oriented, moves all 4 extremities grossly. Results Result Diagram: 09/16/16 04409/16/16 044 SURY WALTERS MD Sep 16, 2016 17:44
[2016-09-16 19:50] VITALS: BP 125/60; RESP 18
[2016-09-16] MEDS: ONDANSETRON 4 MG INJ IV PRN (19:58)
--- NOTE | 2016-09-16 22:36 | RADRPT ---
PROCEDURE: XR small-bowel follow-through. CLINICAL INDICATION: Abdominal pain. TECHNIQUE: The patient was given 280 cc gastrographin contrast by mouth. Multiple overhead radiog raphs of the abdomen were then obtained. Spot compression images of the abdomen were obtained when c ontrast reached the colon. COMPARISON: CT dated 09/14/2016 FINDINGS: The gang bore operator view of the abdomen shows multiple dilated air filled loops of small bowel, measuring up t o 4.2 cm. Left hip prosthesis is noted with satisfactory position. Changes of gastric bypass surgery are noted. After drinking the contrast, contrast flowed quickly through the proximal small bowel. Contrast was seen in the distal jejunum after 15 minutes. After 30 minutes, contrast was seen in the proximal ileum. Contrast and remained in the same position over multiple radiographs up to 5 hours. The exam was then terminated. No intraluminal filling defects or mucosal abnormalities are identified. IMPRESSION: 1. Small bowel obstruction in upper pelvis near the midline, likely in the proximal ileum, unchange d from prior CT scan. 2. No evidence of bowel perforation. 3. Left hip prosthesis with satisfactory position. 4. Advanced degenerative change of right hip joint. RPTAT: HLDM .Edy Wolf MD, MD Date Time Electronically viewed and signed by .Edy Wolf MD, MD on 09/16/2016 22:36 .M/
[2016-09-17] MEDS: HYDROmorphONE 1 MG/ML SYG IV PRN ×5 (00:10→16:23)
[2016-09-17] MEDS: ONDANSETRON 4 MG INJ IV PRN ×4 (02:19→21:14)
[2016-09-17] MEDS: DEXTROSE 5%-0.45% NACL 1,000 ML IV SCH ×4 (03:28→22:38)
[2016-09-17] MEDS: [UNRECOGNIZED DRUG - OTHER] XX SCH ×2 (03:30→08:35)
[2016-09-17] MEDS: OLOPATADINE XX SCH ×2 (03:30→08:35)
[2016-09-17 05:15] LABS: HEMATOCRIT 41.6 % (37.0-47.0); HEMOGLOBIN 14.1 g/dl (12.0-16.0); LYMPHOCYTES # 0.8 10^3/ul (0.8-2.9); LYMPHOCYTES % 7.4 % (15.0-51.0); MEAN CORPUSCULAR HEMOGLOBIN 32.2 pg (29.0-33.0); MEAN CORPUSCULAR HGB CONC 33.9 g/dl (32.0-37.0); MEAN CORPUSCULAR VOLUME 94.9 fl (82.0-101.0); MEAN PLATELET VOLUME 8.7 fl (7.4-10.4); MONOCYTE # 0.7 10^3/ul (0.3-0.9); MONOCYTES % 5.8 % (0.0-11.0); NEUTROPHIL # 9.8 10^3/ul (1.6-7.5); NEUTROPHILS % 86.8 % (39.0-77.0); PLATELET COUNT 266 10^3/UL (140-440); RED BLOOD COUNT 4.39 10^6/ul (4.20-5.40); RED CELL DISTRIBUTION WIDTH 14.2 % (11.5-14.5); UNCORRECTED WBC 11.3 10^3/ul (4.8-10.8); WHITE BLOOD COUNT 11.3 10^3/ul (4.8-10.8)
[2016-09-17] MEDS: LEVOTHYROXINE 100 MCG VIAL IV SCH (05:29)
[2016-09-17 05:41] LABS: ALBUMIN 3.3 g/dl (3.3-4.9)
[2016-09-17 05:43] LABS: CREATININE 0.53 mg/dl (0.44-1.00)
[2016-09-17 05:44] LABS: ALBUMIN/GLOBULIN RATIO 1.17; BILIRUBIN,INDIRECT 0.5 mg/dl (0-1.1); BILIRUBIN,TOTAL 0.5 mg/dl (0.2-1.3); CALCIUM 9.1 mg/dl (8.4-10.2); TOTAL PROTEIN 6.1 g/dl (6.1-8.1)
[2016-09-17 06:08] LABS: CONDITION 1
--- NOTE | 2016-09-17 06:42 | CONS ---
Date/Time of Note Date/Time of Note DATE: 09/17/16 TIME: 06:36 Consult Date/Type/Reason Admit Date/Time Sep 15, 2016 at 01:10 Initial Consult Date Type of Consultation: GI Subjective Events of weekend and chart reviewed Longstanding problems with GERD for which she has been under care of Dr. Baron Still having abdominal pain and distention SBFT shows small bowel obstruction of proximal ileum Objective Vital Signs Date Time Temp Pulse Resp B/P Pulse Ox O2 Delivery O2 Flow Rate FiO2 09/16/16 19:50 98.4 89 18 125/60 93 09/15/16 20:18 21 09/15/16 03:59 Room Air Chest: clear to P and A Cardiac: no m, r, g Abdomen: soft, diffuse gaseous distention, absent bs Intake and Output 09/16/16 09/16/16 09/17/16 15:00 23:00 07:00 Intake Total 975 ml 300 ml Output Total 600 ml 50 ml Balance 975 ml -300 ml -50 ml Results/Medications Result Diagram: 09/17/16 0415 09/17/16 0415 Results 24 hrs Laboratory Tests Test 09/17/16 04:15 Alanine Aminotransferase (ALT/SGPT) 26 Albumin 3.3 Albumin/Globulin Ratio 1.17 Alkaline Phosphatase 65 Anion Gap 13 Aspartate Amino Transf (AST/SGOT) 22 Basophils # 0.0 Basophils % 0.0 Blood Urea Nitrogen 12 Calcium Level 9.1 Carbon Dioxide Level 27 Chloride Level 106 Creatinine 0.53 Direct Bilirubin 0.00 Eosinophils # 0.0 Eosinophils % 0.0 Globulin 2.80 Glucose Level 142 Hematocrit 41.6 Hemoglobin 14.1 Indirect Bilirubin 0.5 Lymphocytes # 0.8 Lymphocytes % 7.4 L Mean Corpuscular Hemoglobin 32.2 Mean Corpuscular Hemoglobin Concent 33.9 Mean Corpuscular Volume 94.9 Mean Platelet Volume 8.7 Monocytes # 0.7 Monocytes % 5.8 Neutrophils # 9.8 H Neutrophils % 86.8 H Nucleated Red Blood Cells # 0.0 Nucleated Red Blood Cells % 0.0 Platelet Count 266 Potassium Level 4.0 Red Blood Count 4.39 Red Cell Distribution Width 14.2 Sodium Level 142 Total Bilirubin 0.5 Total Protein 6.1 # White Blood Count 11.3 H Medications Current Medications Dextrose/Sodium Chloride (D5-1/2ns) 1,000 ml @ 125 mls/hr Q8H IV Last administered on 09/17/16 03:28; Admin Dose 125 MLS/HR; Start 09/15/16 at 04:11 Ondansetron HCl (Zofran Inj) 4 mg Q6H PRN IV NAUSEA AND/OR VOMITING Last administered on 09/17/16 02:19; Admin Dose 4 MG; Start 09/15/16 at 04:30 Acetaminophen (Tylenol Supp) 650 mg Q6H PRN [place] PAIN LEVEL 1-3 OR FEVER; Start 09/15/16 at 04:30 Salmeterol Xinafoate/ Fluticasone (Advair 250/50 Diskus) rinse mouth out after e... BID INH Last administered on 09/16/16 20:31; Admin Dose 50 INH; Start 06/21 at 09:00; Stop 09/24/16 at 08:59 Miscellaneous Information 30.5 gm BID NS ; Start 09/15/16 at 09:00; Status UNV Levothyroxine Sodium (Synthroid Iv) 50 mcg DAILY@06 IV Last administered on 05:29; Admin Dose 50 MCG; Start 09/15/16 at 06:00 Hydromorphone HCl (Dilaudid) 1 mg Q4H PRN IV SEVERE PAIN LEVEL 7-10 Last administered on 09/17/16 04:36; Admin Dose 1 MG; Start 09/15/16 at 08:30 Miscellaneous Information (*Order Clarification Bulletin) (Olopatadine* ( Patanase* Nasal) 3... Q8H XX ; Start 09/16/16 at 11:30 Eye Lubricant 2 drop 2 drop QID BOTH EYES Last administered on 09/16/16 20:30 ; Admin Dose 2 DROP; Start 09/16/16 at 17:00 Ceftriaxone Sodium (Rocephin) 50 ml @ 100 mls/hr Q24H IVPB Last administered on 09/16/16 17:00; Admin Dose 100 MLS/HR; Start 09/16/16 at 17:00 Assessment/Plan Chief Complaint/Hosp Course Impression Small bowel Obstruction - likely related to prior abdominal surgery Plan: I suggested NG tube to suction be placed under fluoroscopy; patient refuses at this point and wishes to discuss with Dr. Adrianna first Await further input of Dr. Joshua Will add protonix iv to regimen Problems: KEVIN MESA MD Sep 17, 2016 06:42
[2016-09-17 07:52] VITALS: BP 131/60; RESP 18
[2016-09-17] MEDS: ARTIFICIAL TEARS 15 ML OPH BOTH EYES SCH ×4 (08:23→20:36)
[2016-09-17] MEDS: SALMETEROL/FLUTICASONE 250/50 INHA INH SCH ×2 (08:24→20:36)
[2016-09-17] MEDS: PANTOPRAZOLE 40 MG INJ IV SCH ×2 (08:24→17:39)
[2016-09-17] MEDS: OLOPATADINE NS SCH (09:00)
[2016-09-17] MEDS ORDERED: HYDROmorphONE 1 MG/ML SYG IV STA (09:28)
--- NOTE | 2016-09-17 09:38 | CONS ---
Date/Time of Note Date/Time of Note DATE: 09/17/16 TIME: 09:35 Assessment/Plan Assessment/Plan Chief Complaint/Hosp Course 1. Abdominal pain , findings consistent with SBO . Patient is being seen by GI and surgery . UGI and SBO shows obstruction at ileum . Dr Humphreys recommends insertion of NG tube by radiologist . 2. continue IV fluids and NPO . 3. Asthma 4. hyperkalemia .resolved Problems: Consultation Date/Type/Reason Admit Date/Time Sep 15, 2016 at 01:10 Type of Consultation: GI 24 HR Interval Summary Free Text/Dictation she continues to have diffuse abdominal pain with vomiting . Exam/Review of Systems Vital Signs Vitals Vital Signs Date Time Temp Pulse Resp B/P Pulse Ox O2 Delivery O2 Flow Rate FiO2 09/17/16 07:52 98.6 107 18 131/60 95 09/15/16 20:18 21 09/15/16 03:59 Room Air Intake and Output 09/16/16 09/16/16 09/17/16 15:00 23:00 07:00 Intake Total 975 ml 300 ml Output Total 600 ml 50 ml Balance 975 ml -300 ml -50 ml Exam Constitutional: alert, oriented, well developed Respiratory: clear to auscultation, normal air movement Cardiovascular: regular rate and rhythm Gastrointestinal: distended, firm, tender Musculoskeletal: nl extremities to inspection Results Result Diagram: 09/17/16 0415 09/17/16 0415 Results 24 hrs Laboratory Tests Test 09/17/16 04:15 Alanine Aminotransferase (ALT/SGPT) 26 Albumin 3.3 Albumin/Globulin Ratio 1.17 Alkaline Phosphatase 65 Anion Gap 13 Aspartate Amino Transf (AST/SGOT) 22 Basophils # 0.0 Basophils % 0.0 Blood Urea Nitrogen 12 Calcium Level 9.1 Carbon Dioxide Level 27 Chloride Level 106 Creatinine 0.53 Direct Bilirubin 0.00 Eosinophils # 0.0 Eosinophils % 0.0 Globulin 2.80 Glucose Level 142 Hematocrit 41.6 Hemoglobin 14.1 Indirect Bilirubin 0.5 Lymphocytes # 0.8 Lymphocytes % 7.4 L Mean Corpuscular Hemoglobin 32.2 Mean Corpuscular Hemoglobin Concent 33.9 Mean Corpuscular Volume 94.9 Mean Platelet Volume 8.7 Monocytes # 0.7 Monocytes % 5.8 Neutrophils # 9.8 H Neutrophils % 86.8 H Nucleated Red Blood Cells # 0.0 Nucleated Red Blood Cells % 0.0 Platelet Count 266 Potassium Level 4.0 Red Blood Count 4.39 Red Cell Distribution Width 14.2 Sodium Level 142 Total Bilirubin 0.5 Total Protein 6.1 # White Blood Count 11.3 H Medications Medications Current Medications Dextrose/Sodium Chloride (D5-1/2ns) 1,000 ml @ 125 mls/hr Q8H IV Last administered on 09/17/16 03:28; Admin Dose 125 MLS/HR; Start 09/15/16 at 04:11 Ondansetron HCl (Zofran Inj) 4 mg Q6H PRN IV NAUSEA AND/OR VOMITING Last administered on 09/17/16 08:24; Admin Dose 4 MG; Start 09/15/16 at 04:30 Acetaminophen (Tylenol Supp) 650 mg Q6H PRN [place] PAIN LEVEL 1-3 OR FEVER; Start 09/15/16 at 04:30 Salmeterol Xinafoate/ Fluticasone (Advair 250/50 Diskus) rinse mouth out after e... BID INH Last administered on 09/17/16 08:24; Admin Dose 1 INH; Start 06/21 at 09:00; Stop 09/24/16 at 08:59 Miscellaneous Information 30.5 gm BID NS ; Start 09/15/16 at 09:00; Status UNV Levothyroxine Sodium (Synthroid Iv) 50 mcg DAILY@06 IV Last administered on 05:29; Admin Dose 50 MCG; Start 09/15/16 at 06:00 Hydromorphone HCl (Dilaudid) 1 mg Q4H PRN IV SEVERE PAIN LEVEL 7-10 Last administered on 09/17/16 08:25; Admin Dose 1 MG; Start 09/15/16 at 08:30 Miscellaneous Information (*Order Clarification Bulletin) (Olopatadine* ( Patanase* Nasal) 3... Q8H XX ; Start 09/16/16 at 11:30 Eye Lubricant 2 drop 2 drop QID BOTH EYES Last administered on 09/17/16 08:23 ; Admin Dose 2 DROP; Start 09/16/16 at 17:00 Ceftriaxone Sodium (Rocephin) 50 ml @ 100 mls/hr Q24H IVPB Last administered on 2/12/17at 17:00; Admin Dose 100 MLS/HR; Start 09/16/16 at 17:00 ANNIE STOUT MD Sep 17, 2016 09:38
[2016-09-17] MEDS: FLUTICASONE 0.05% 16 GM NAS SPRAY NASAL SCH (10:00)
[2016-09-17] MEDS: CEFTRIAXONE 1 GM/50 ML (PMX) 50 ML IVPB SCH (17:39)
--- NOTE | 2016-09-17 18:00 | RADRPT ---
PROCEDURE: Fluoroscopic guided placement of nasogastric tube. CLINICAL INDICATION: Large hiatus hernia. The nurse is unable to place the nasogastric tube below the diaphragm.. TECHNIQUE: 7 images of the lower chest and upper abdomen were obtained with an image intensifier. 2.1 minutes of fluoroscopy time was used. COMPARISON: Chest radiograph dated 09/15/2016 which demonstrated the nasogastric tube coiled in th e hiatus hernia above the diaphragm. FINDINGS: The patient's nurse placed a nasogastric tube in the stomach within the chest above the diaphragm. Fluoroscopy was then used to maneuver the tip of the nasogastric tube into the distal stomach just b elow the diaphragm. 30 ml of [id number] was injected through the nasogastric tube into the stoma ch, demonstrating most of the stomach to be above the diaphragm. IMPRESSION: 1. Fluoroscopic positioning of nasogastric tube with the tip in the distal stomach. 2. Large hiatus hernia with most of the stomach above the diaphragm. RPTAT: QQ .Rudolph Salcedo MD, MD Date Time Electronically viewed and signed by .Rudolph Salcedo MD, on 09/17/2016 17:59 .R/
--- NOTE | 2016-09-17 18:57 | PN ---
Date/Time of Note Date/Time of Note DATE: 09/17/16 TIME: 18:54 Assessment/Plan Lines/Catheters IV Catheter Type (from Nrs): Peripheral IV Chavez in Place (from Nrs): No Assessment/Plan Chief Complaint/Hosp Course 1. Abdominal pain with nausea, vomiting, with CT findings suggestive of possible partial bowel obstruction versus ileus. SBFT+ -ngt -npo -ivf -oob/ambulate -if still not better after ngt in next few days will proceed with surgery 2. Hypothyroidism -replete hormones. 3. Obesity, status post gastric bypass. -eventual nutrition optimization -encourage exercise. 4. Gastroesophageal reflux disease history. -diet and lifestyle optimization. 5. Asthma. Continue medical management. Thank you, Problems: Subjective 24 Hr Interval Summary No flatus or BM. Vomiting. Min pain persists. No fevers or chills. No chest pain or shortness of breath. No visual or neurologic changes. No dysuria. No abnormal discharge. Minimal bloating. No headache. SBFT positive with obstruction ileum. Exam/Review of Systems Vital Signs Vitals Vital Signs Date Time Temp Pulse Resp B/P Pulse Ox O2 Delivery O2 Flow Rate FiO2 09/17/16 07:52 98.6 107 18 131/60 95 09/15/16 20:18 21 09/15/16 03:59 Room Air Intake and Output 09/16/16 09/16/16 09/17/16 15:00 23:00 07:00 Intake Total 975 ml 300 ml Output Total 600 ml 50 ml Balance 975 ml -300 ml -50 ml Exam Free Text/Dictation GENERAL: No acute distress, comfortable, obese. HEENT: Pupils equal, reactive. No scleral icterus. Mucous membranes are moist. NECK: Supple, no crepitus, no JVD. PULMONARY: Normal respiratory effort. No wheezing. CARDIAC: S1, S2 present and irregular. ABDOMEN: Soft, minimally distended. Tender mostly on the left side. No rebound, no guarding, not rigid. No palpable hernias. EXTREMITIES: No edema. VASCULAR: Capillary refill is 2 seconds. NEUROLOGIC: Alert, oriented, moves all 4 extremities grossly. Results Result Diagram: 09/17/16 0415 09/17/16 0415 SURY WALTERS MD Sep 17, 2016 18:57
[2016-09-17 19:15] VITALS: BP 121/76; RESP 20
[2016-09-18] MEDS: HYDROmorphONE 1 MG/ML SYG IV PRN ×6 (02:43→23:32)
[2016-09-18] MEDS: ONDANSETRON 4 MG INJ IV PRN ×4 (03:34→22:51)
[2016-09-18 05:00] LABS: BASOPHILS % 0.1 % (0.0-2.0); EOSINOPHILS # 0.2 10^3/ul (0.0-0.5); EOSINOPHILS % 1.6 % (0.0-7.0); HEMATOCRIT 38.6 % (37.0-47.0); LYMPHOCYTES # 1.2 10^3/ul (0.8-2.9); LYMPHOCYTES % 11.4 % (15.0-51.0); MEAN CORPUSCULAR HEMOGLOBIN 31.7 pg (29.0-33.0); MEAN CORPUSCULAR HGB CONC 33.6 g/dl (32.0-37.0); MEAN CORPUSCULAR VOLUME 94.4 fl (82.0-101.0); MEAN PLATELET VOLUME 8.3 fl (7.4-10.4); MONOCYTE # 0.8 10^3/ul (0.3-0.9); MONOCYTES % 7.9 % (0.0-11.0); NEUTROPHIL # 8.3 10^3/ul (1.6-7.5); PLATELET COUNT 278 10^3/UL (140-440); RED BLOOD COUNT 4.09 10^6/ul (4.20-5.40); RED CELL DISTRIBUTION WIDTH 14.3 % (11.5-14.5); UNCORRECTED WBC 10.5 10^3/ul (4.8-10.8); WHITE BLOOD COUNT 10.5 10^3/ul (4.8-10.8)
[2016-09-18 05:02] LABS: CONDITION 1
[2016-09-18 05:40] LABS: ALBUMIN 2.9 g/dl (3.3-4.9)
[2016-09-18 05:41] LABS: CHLORIDE 102 mmol/L (97-110); POTASSIUM 4.4 mmol/L (3.5-5.1); SODIUM 140 mmol/L (135-144)
[2016-09-18 05:43] LABS: ALBUMIN/GLOBULIN RATIO 1.07; ALKALINE PHOSPHATASE 57 IU/L (42-121); ANION GAP 12 (8-16); ASPARTATE AMINO TRANSFERASE 23 IU/L (15-46); BILIRUBIN,INDIRECT 0.4 mg/dl (0-1.1); BILIRUBIN,TOTAL 0.4 mg/dl (0.2-1.3); BLOOD UREA NITROGEN 12 mg/dl (7-20); CARBON DIOXIDE 30 mmol/L (21-31); CREATININE 0.63 mg/dl (0.44-1.00); TOTAL PROTEIN 5.6 g/dl (6.1-8.1)
[2016-09-18 05:44] LABS: ALANINE AMINOTRANSFERASE 21 IU/L (13-69); CALCIUM 8.7 mg/dl (8.4-10.2); GLUCOSE 123 mg/dl (70-220); MAGNESIUM 2.3 mg/dl (1.7-2.5)
[2016-09-18] MEDS: LEVOTHYROXINE 100 MCG VIAL IV SCH (06:00)
--- NOTE | 2016-09-18 06:48 | CONS ---
Date/Time of Note Date/Time of Note DATE: 09/18/16 TIME: 06:44 Consult Date/Type/Reason Admit Date/Time Sep 15, 2016 at 01:10 Type of Consultation: GI Subjective Agreed to NG tube after speaking to Dr. Rodas Tube placed at 5pm Tube draining fluid Patient passed flatus Objective Vital Signs Date Time Temp Pulse Resp B/P Pulse Ox O2 Delivery O2 Flow Rate FiO2 09/17/16 19:15 97.8 65 20 121/76 96 09/15/16 20:18 21 09/15/16 03:59 Room Air Abdomen: soft, decreased distentions, + bs Intake and Output 09/17/16 09/17/16 09/18/16 15:00 23:00 07:00 Intake Total 1000 ml 0 ml Balance 1000 ml 0 ml Results/Medications Result Diagram: 09/18/16 0415 09/18/16 0415 Results 24 hrs Laboratory Tests Test 09/18/16 04:15 Alanine Aminotransferase (ALT/SGPT) 21 Albumin 2.9 L Albumin/Globulin Ratio 1.07 Alkaline Phosphatase 57 Anion Gap 12 Aspartate Amino Transf (AST/SGOT) 23 Basophils # 0.0 Basophils % 0.1 Blood Urea Nitrogen 12 Calcium Level 8.7 Carbon Dioxide Level 30 Chloride Level 102 Creatinine 0.63 Direct Bilirubin 0.00 Eosinophils # 0.2 Eosinophils % 1.6 Globulin 2.70 Glucose Level 123 Hematocrit 38.6 Hemoglobin 13.0 Indirect Bilirubin 0.4 Lymphocytes # 1.2 Lymphocytes % 11.4 L Magnesium Level 2.3 Mean Corpuscular Hemoglobin 31.7 Mean Corpuscular Hemoglobin Concent 33.6 Mean Corpuscular Volume 94.4 Mean Platelet Volume 8.3 Monocytes # 0.8 Monocytes % 7.9 Neutrophils # 8.3 H Neutrophils % 79.0 H Nucleated Red Blood Cells # 0.0 Nucleated Red Blood Cells % 0.0 Parathyroid Hormone (Intact) Platelet Count 278 Potassium Level 4.4 Red Blood Count 4.09 L Red Cell Distribution Width 14.3 Sodium Level 140 Total Bilirubin 0.4 Total Protein 5.6 L White Blood Count 10.5 Medications Current Medications Dextrose/Sodium Chloride (D5-1/2ns) 1,000 ml @ 125 mls/hr Q8H IV Last administered on 09/17/16t 22:38; Admin Dose 125 MLS/HR; Start 09/15/16 at 04:11 Ondansetron HCl (Zofran Inj) 4 mg Q6H PRN IV NAUSEA AND/OR VOMITING Last administered on 09/18/16 03:34; Admin Dose 4 MG; Start 09/15/16 at 04:30 Acetaminophen (Tylenol Supp) 650 mg Q6H PRN [place] PAIN LEVEL 1-3 OR FEVER; Start 09/15/16 at 04:30 Salmeterol Xinafoate/ Fluticasone (Advair 250/50 Diskus) rinse mouth out after e... BID INH Last administered on 09/17/16 20:36; Admin Dose 50 INH; Start 06/21 at 09:00; Stop 09/24/16 at 08:59 Levothyroxine Sodium (Synthroid Iv) 50 mcg DAILY@06 IV Last administered on 06:00; Admin Dose 50 MCG; Start 09/15/16 at 06:00 Hydromorphone HCl (Dilaudid) 1 mg Q4H PRN IV SEVERE PAIN LEVEL 7-10 Last administered on 09/18/16 02:43; Admin Dose 1 MG; Start 09/15/16 at 08:30 Eye Lubricant 2 drop 2 drop QID BOTH EYES Last administered on 09/17/16 20:36 ; Admin Dose 2 DROP; Start 09/16/16 at 17:00 Ceftriaxone Sodium (Rocephin) 50 ml @ 100 mls/hr Q24H IVPB Last administered on 09/17/16 17:39; Admin Dose 100 MLS/HR; Start 09/16/16 at 17:00 Fluticasone Propionate (Flonase 0.05% Nasal) 2 spray DAILY NASAL ; Start at 10:00 Assessment/Plan Chief Complaint/Hosp Course Impression Small bowel Obstruction - likely related to prior abdominal surgery Plan: Continue NG suction and iv fluid Continue ppi iv Followup KUB and Upright film - ordered Agree with plans as outlined by Dr. Joshua to proceed with surgery if SBO does not resolve with suction Problems: KEVIN MESA MD Sep 18, 2016 06:48
[2016-09-18] MEDS: DEXTROSE 5%-0.45% NACL 1,000 ML IV SCH ×2 (06:52→16:55)
[2016-09-18 07:44] VITALS: BP 119/58; RESP 18
[2016-09-18] MEDS: PANTOPRAZOLE 40 MG INJ IV SCH ×2 (07:52→16:56)
--- NOTE | 2016-09-18 08:15 | CONS ---
Date/Time of Note Date/Time of Note DATE: 09/18/16 TIME: 08:12 Assessment/Plan Assessment/Plan Chief Complaint/Hosp Course 1. Abdominal pain , findings consistent with SBO . Patient is being seen by GI and surgery . UGI and SBO shows obstruction at ileum . She now has NG tube in place and KUB ordered for today .. 2. continue IV fluids and NPO . Labs reviewed . 3. Asthma 4. hyperkalemia .resolved Problems: Consultation Date/Type/Reason Admit Date/Time Sep 15, 2016 at 01:10 Type of Consultation: GI 24 HR Interval Summary Free Text/Dictation she had 1 episode of flatus last night . now with NG tube . Exam/Review of Systems Vital Signs Vitals Vital Signs Date Time Temp Pulse Resp B/P Pulse Ox O2 Delivery O2 Flow Rate FiO2 09/17/16 19:15 97.8 65 20 121/76 96 09/15/16 20:18 21 09/15/16 03:59 Room Air Intake and Output 09/17/16 09/17/16 09/18/16 15:00 23:00 07:00 Intake Total 1000 ml 1050 ml 1000 ml Balance 1000 ml 1050 ml 1000 ml Exam Constitutional: alert, oriented, well developed Psych: nl mood/affect Respiratory: clear to auscultation, normal air movement Cardiovascular: nl pulses, regular rate and rhythm Gastrointestinal: distended, tender Extremities: edema Results Result Diagram: 09/18/16 0415 09/18/16 0415 Results 24 hrs Laboratory Tests Test 09/18/16 04:15 Alanine Aminotransferase (ALT/SGPT) 21 Albumin 2.9 L Albumin/Globulin Ratio 1.07 Alkaline Phosphatase 57 Anion Gap 12 Aspartate Amino Transf (AST/SGOT) 23 Basophils # 0.0 Basophils % 0.1 Blood Urea Nitrogen 12 Calcium Level 8.7 Carbon Dioxide Level 30 Chloride Level 102 Creatinine 0.63 Direct Bilirubin 0.00 Eosinophils # 0.2 Eosinophils % 1.6 Globulin 2.70 Glucose Level 123 Hematocrit 38.6 Hemoglobin 13.0 Indirect Bilirubin 0.4 Lymphocytes # 1.2 Lymphocytes % 11.4 L Magnesium Level 2.3 Mean Corpuscular Hemoglobin 31.7 Mean Corpuscular Hemoglobin Concent 33.6 Mean Corpuscular Volume 94.4 Mean Platelet Volume 8.3 Monocytes # 0.8 Monocytes % 7.9 Neutrophils # 8.3 H Neutrophils % 79.0 H Nucleated Red Blood Cells # 0.0 Nucleated Red Blood Cells % 0.0 Parathyroid Hormone (Intact) Platelet Count 278 Potassium Level 4.4 Red Blood Count 4.09 L Red Cell Distribution Width 14.3 Sodium Level 140 Total Bilirubin 0.4 Total Protein 5.6 L White Blood Count 10.5 Medications Medications Current Medications Dextrose/Sodium Chloride (D5-1/2ns) 1,000 ml @ 125 mls/hr Q8H IV Last administered on 09/18/16 06:52; Admin Dose 125 MLS/HR; Start 09/15/16 at 04:11 Ondansetron HCl (Zofran Inj) 4 mg Q6H PRN IV NAUSEA AND/OR VOMITING Last administered on 09/18/16 03:34; Admin Dose 4 MG; Start 09/15/16 at 04:30 Acetaminophen (Tylenol Supp) 650 mg Q6H PRN [place] PAIN LEVEL 1-3 OR FEVER; Start 09/15/16 at 04:30 Salmeterol Xinafoate/ Fluticasone (Advair 250/50 Diskus) rinse mouth out after e... BID INH Last administered on 09/17/16 20:36; Admin Dose 50 INH; Start 06/21 at 09:00; Stop 09/24/16 at 08:59 Levothyroxine Sodium (Synthroid Iv) 50 mcg DAILY@06 IV Last administered on 06:00; Admin Dose 50 MCG; Start 09/15/16 at 06:00 Hydromorphone HCl (Dilaudid) 1 mg Q4H PRN IV SEVERE PAIN LEVEL 7-10 Last administered on 09/18/16 06:50; Admin Dose 1 MG; Start 09/15/16 at 08:30 Eye Lubricant 2 drop 2 drop QID BOTH EYES Last administered on 09/17/16 20:36 ; Admin Dose 2 DROP; Start 09/16/16 at 17:00 Ceftriaxone Sodium (Rocephin) 50 ml @ 100 mls/hr Q24H IVPB Last administered on 09/17/16 17:39; Admin Dose 100 MLS/HR; Start 09/16/16 at 17:00 Fluticasone Propionate (Flonase 0.05% Nasal) 2 spray DAILY NASAL ; Start at 10:00 ANNIE STOUT MD Sep 18, 2016 08:15
[2016-09-18] MEDS: FLUTICASONE 0.05% 16 GM NAS SPRAY NASAL SCH (09:00)
[2016-09-18] MEDS: ARTIFICIAL TEARS 15 ML OPH BOTH EYES SCH ×4 (09:39→21:06)
[2016-09-18] MEDS: SALMETEROL/FLUTICASONE 250/50 INHA INH SCH ×2 (09:47→21:06)
[2016-09-18] MEDS: CEFTRIAXONE 1 GM/50 ML (PMX) 50 ML IVPB SCH (16:56)
--- NOTE | 2016-09-18 17:24 | RADRPT ---
PROCEDURE: XR Chest. CLINICAL INDICATION: NG tube placement check. TECHNIQUE: Single frontal view of the chest was obtained COMPARISON: Chest x-ray 09/15/2016 2/6 and a. FINDINGS: The NG tube is not well positioned distal to the GE junction. There is a suboptimal inspiration with bibasilar atelectasis. There are vascular calcifications in the aortic arch. Small pleural effusi ons are not excluded. The pulmonary vasculature is normal. IMPRESSION: 1. Satisfactory positioning of an NG tube distal to the GE junction. I would consider advancing the NG tube slightly further to ensure proper placement within the fundus of the stomach as the distal end of the tube is poorly visualized on this study. A KUB can be performed if needed. 2. Atherosclerosis of the aortic arch. 3. Bibasilar atelectasis. 4. Spondylosis of the thoracic spine. RPTAT:AAJJ Physician [place] Date Time Electronically viewed and signed by Sunny Garner Physician on 09/18/2016 17:23 RADU/
--- NOTE | 2016-09-18 18:30 | RADRPT ---
PROCEDURE: XR Abdomen. CLINICAL INDICATION: Small bowel obstruction. TECHNIQUE: AP abdomen x-ray. COMPARISON: KUB 09/16/2016. FINDINGS: An NG tube is identified with its tip at the level of the GE junction. There are clips near the GE junction related to earlier surgery. There is water-soluble contrast and multiple dilated small bow el loops. No contrast material is identified in the colon. Additional follow-up films can be perfor med into the 4 hours to get contrast eventually reaches the colon. IMPRESSION: 1. Distal mechanical small-bowel obstruction. 2. An NG tube is noted near the level of the GE junction with clips and suture material related to a earlier surgery in the area. It is unclear if the rest in the stomach itself. 3. Right pleural effusion. 4. 5 mm calcification projecting through the left diaphragm which may be the result of a granuloma. 5. Degenerative osteophytes in the thoracic and lumbar spine. RPTAT:AAJJ Physician Victorino Date Time Electronically viewed and signed by Sunny Garner Physician on 09/18/2016 18:29 RADU/
[2016-09-18 19:35] VITALS: BP 119/56; RESP 18
--- NOTE | 2016-09-18 20:38 | PN ---
Date/Time of Note Date/Time of Note DATE: 09/18/16 TIME: 20:35 Assessment/Plan Lines/Catheters IV Catheter Type (from Nrs): Peripheral IV Chavez in Place (from Nrs): No Assessment/Plan Chief Complaint/Hosp Course 1. Abdominal pain with nausea, vomiting, with CT findings suggestive of possible partial bowel obstruction versus ileus. SBFT+ -ngt -npo -ivf -oob/ambulate -OR tomorrow but patient states she wants to see how she does overnight. 2. Hypothyroidism -replete hormones. 3. Obesity, status post gastric bypass. -eventual nutrition optimization -encourage exercise. 4. Gastroesophageal reflux disease history. -diet and lifestyle optimization. 5. Asthma. Continue medical management. Thank you, Problems: Subjective 24 Hr Interval Summary NGT placed but fell out now being replaced again. No flatus or BM. Min pain persists. No fevers or chills. No chest pain or shortness of breath. No visual or neurologic changes. No dysuria. No abnormal discharge. Minimal bloating. No headache. SBFT positive with obstruction ileum. Exam/Review of Systems Vital Signs Vitals Vital Signs Date Time Temp Pulse Resp B/P Pulse Ox O2 Delivery O2 Flow Rate FiO2 09/18/16 07:44 98.7 88 18 119/58 93 09/15/16 20:18 21 09/15/16 03:59 Room Air Intake and Output 09/17/16 09/17/16 09/18/16 15:00 23:00 07:00 Intake Total 1000 ml 1050 ml 1000 ml Balance 1000 ml 1050 ml 1000 ml Exam Free Text/Dictation GENERAL: No acute distress, comfortable, obese. HEENT: Pupils equal, reactive. No scleral icterus. Mucous membranes are moist. NECK: Supple, no crepitus, no JVD. PULMONARY: Normal respiratory effort. No wheezing. CARDIAC: S1, S2 present and irregular. ABDOMEN: Soft, minimally distended. Tender mostly on the left side. No rebound, no guarding, not rigid. No palpable hernias. EXTREMITIES: No edema. VASCULAR: Capillary refill is 2 seconds. NEUROLOGIC: Alert, oriented, moves all 4 extremities grossly. Results Result Diagram: 09/18/16 0415 09/18/16 0415 SURY WALTERS MD Sep 18, 2016 20:38
[2016-09-19] MEDS: DEXTROSE 5%-0.45% NACL 1,000 ML IV SCH ×4 (01:45→20:43)
[2016-09-19] MEDS: ONDANSETRON 4 MG INJ IV PRN ×3 (05:20→17:59)
[2016-09-19 05:32] LABS: BASOPHILS % 0.5 % (0.0-2.0); EOSINOPHILS # 0.9 10^3/ul (0.0-0.5); EOSINOPHILS % 9.3 % (0.0-7.0); HEMATOCRIT 34.4 % (37.0-47.0); HEMOGLOBIN 11.7 g/dl (12.0-16.0); LYMPHOCYTES % 21.5 % (15.0-51.0); MEAN CORPUSCULAR HEMOGLOBIN 32.2 pg (29.0-33.0); MEAN CORPUSCULAR HGB CONC 34.1 g/dl (32.0-37.0); MEAN CORPUSCULAR VOLUME 94.4 fl (82.0-101.0); MEAN PLATELET VOLUME 8.2 fl (7.4-10.4); MONOCYTE # 0.7 10^3/ul (0.3-0.9); MONOCYTES % 7.9 % (0.0-11.0); NEUTROPHIL # 5.6 10^3/ul (1.6-7.5); NEUTROPHILS % 60.8 % (39.0-77.0); PLATELET COUNT 256 10^3/UL (140-440); RED BLOOD COUNT 3.65 10^6/ul (4.20-5.40); UNCORRECTED WBC 9.3 10^3/ul (4.8-10.8); WHITE BLOOD COUNT 9.3 10^3/ul (4.8-10.8)
[2016-09-19] MEDS: LEVOTHYROXINE 100 MCG VIAL IV SCH (05:37)
[2016-09-19 05:41] LABS: CONDITION 1
[2016-09-19 05:43] LABS: ALBUMIN 2.6 g/dl (3.3-4.9)
[2016-09-19 05:46] LABS: BILIRUBIN,INDIRECT 0.6 mg/dl (0-1.1); BILIRUBIN,TOTAL 0.6 mg/dl (0.2-1.3); CREATININE 0.63 mg/dl (0.44-1.00)
[2016-09-19 05:47] LABS: ALBUMIN/GLOBULIN RATIO 1.08; CALCIUM 8.6 mg/dl (8.4-10.2)
--- NOTE | 2016-09-19 06:00 | RADRPT ---
PROCEDURE: XR Abdomen. CLINICAL INDICATION: Abdominal pain. TECHNIQUE: AP abdomen x-ray. COMPARISON: There are no similar studies submitted for comparison. FINDINGS: A nasogastric tube tip is likely within the duodenum or distal stomach. There is contrast throughou t the small bowel. IMPRESSION: Nasogastric tube tip likely within the stomach or duodenum. RPTAT: HIKT .Unruly De Guzman MD, MD Date Time Electronically viewed and signed by .Unruly De Guzman MD, on 09/19/2016 05:59 .T/
[2016-09-19 07:30] VITALS: BP 133/95; RESP 18
[2016-09-19] MEDS: HYDROmorphONE 1 MG/ML SYG IV PRN ×4 (07:35→20:18)
[2016-09-19] MEDS: PANTOPRAZOLE 40 MG INJ IV SCH ×2 (07:35→17:06)
--- NOTE | 2016-09-19 08:20 | PN ---
Date/Time of Note Date/Time of Note DATE: 09/19/16 TIME: 08:15 Assessment/Plan VTE Prophylaxis VTE Prophylaxis Intervention: SCD's Lines/Catheters IV Catheter Type (from Nrs): Peripheral IV Urinary Cath still in place: No Assessment/Plan Chief Complaint/Hosp Course 1. Abdominal pain , findings consistent with SBO . Patient is being seen by GI and surgery . UGI and SBO shows obstruction at ileum . She now has NG tube in place and it is draining ..She is passing some gas and has bowel sounds . 2. continue IV fluids and NPO . Labs reviewed . 3. Asthma 4. hyperkalemia .resolved Problems: Subjective 24 Hr Interval Summary Free Text/Dictation she had some flatus last night Cardiovascular: no complaints Gastrointestinal: flatus, pain Musculoskeletal: no complaints Exam/Review of Systems Vital Signs Vitals Vital Signs Date Time Temp Pulse Resp B/P Pulse Ox O2 Delivery O2 Flow Rate FiO2 09/19/16 07:30 98.1 95 18 133/95 97 09/19/16 05:20 21 Intake and Output 09/18/16 09/18/16 09/19/16 15:00 23:00 07:00 Intake Total 1300 ml 1155 ml Output Total 20 ml Balance 1280 ml 1155 ml Exam Constitutional: alert, oriented, well developed Psych: nl mood/affect, no complaints Respiratory: clear to auscultation, normal air movement Cardiovascular: regular rate and rhythm Gastrointestinal: bowel sounds, distended, firm, tender Musculoskeletal: nl extremities to inspection Results Result Diagram: 09/19/16 0427 09/19/16 0427 Results 24 hrs Laboratory Tests Test 09/19/16 04:27 Alanine Aminotransferase (ALT/SGPT) 22 Albumin 2.6 L Albumin/Globulin Ratio 1.08 Alkaline Phosphatase 53 Anion Gap 10 Aspartate Amino Transf (AST/SGOT) 17 Basophils # 0.0 Basophils % 0.5 Blood Urea Nitrogen 10 Calcium Level 8.6 Carbon Dioxide Level 31 Chloride Level 102 Creatinine 0.63 Direct Bilirubin 0.00 Eosinophils # 0.9 H Eosinophils % 9.3 H Globulin 2.40 Glucose Level 99 Hematocrit 34.4 L Hemoglobin 11.7 L Indirect Bilirubin 0.6 Lymphocytes # 2.0 Lymphocytes % 21.5 Mean Corpuscular Hemoglobin 32.2 Mean Corpuscular Hemoglobin Concent 34.1 Mean Corpuscular Volume 94.4 Mean Platelet Volume 8.2 Monocytes # 0.7 Monocytes % 7.9 Neutrophils # 5.6 Neutrophils % 60.8 Nucleated Red Blood Cells # 0.0 Nucleated Red Blood Cells % 0.0 Platelet Count 256 Potassium Level 4.0 Red Blood Count 3.65 L Red Cell Distribution Width 14.0 Sodium Level 139 Total Bilirubin 0.6 Total Protein 5.0 L White Blood Count 9.3 Medications Medications Current Medications Dextrose/Sodium Chloride (D5-1/2ns) 1,000 ml @ 125 mls/hr Q8H IV Last administered on 09/19/16 01:45; Admin Dose 125 MLS/HR; Start 09/15/16 at 04:11 Ondansetron HCl (Zofran Inj) 4 mg Q6H PRN IV NAUSEA AND/OR VOMITING Last administered on 09/19/16 05:20; Admin Dose 4 MG; Start 09/15/16 at 04:30 Acetaminophen (Tylenol Supp) [address] PAIN LEVEL 1-3 OR FEVER; Start 09/15/16 at 04:30 Levothyroxine Sodium (Synthroid Iv) 50 mcg DAILY@06 IV Last administered on 05:37; Admin Dose 50 MCG; Start 09/15/16 at 06:00 Hydromorphone HCl (Dilaudid) 1 mg Q4H PRN IV SEVERE PAIN LEVEL 7-10 Last administered on 09/19/16 07:35; Admin Dose 1 MG; Start 09/15/16 at 08:30 Eye Lubricant 2 drop 2 drop QID BOTH EYES Last administered on 09/18/16 21:06 ; Admin Dose 2 DROP; Start 09/16/16 at 17:00 Ceftriaxone Sodium (Rocephin) 50 ml @ 100 mls/hr Q24H IVPB Last administered on 09/18/16 16:56; Admin Dose 100 MLS/HR; Start 09/16/16 at 17:00 Fluticasone Propionate (Flonase 0.05% Nasal) 2 spray DAILY NASAL ; Start at 10:00 Salmeterol Xinafoate/ Fluticasone (Advair 250/50 Diskus) 1 inh BID INH Last administered on 09/18/16 21:06; Admin Dose 1 INH; Start 09/18/16 at 09:41; Stop 09/24/16 at 08:59 ANNIE STOUT MD Sep 19, 2016 08:20
[2016-09-19] MEDS: FLUTICASONE 0.05% 16 GM NAS SPRAY NASAL SCH (09:00)
[2016-09-19] MEDS: SALMETEROL/FLUTICASONE 250/50 INHA INH SCH ×2 (09:16→20:43)
[2016-09-19] MEDS: ARTIFICIAL TEARS 15 ML OPH BOTH EYES SCH ×4 (09:16→20:43)
--- NOTE | 2016-09-19 12:04 | CONS ---
Date/Time of Note Date/Time of Note DATE: 09/19/16 TIME: 12:01 Consult Date/Type/Reason Admit Date/Time Sep 15, 2016 at 01:10 Type of Consultation: GI Subjective About the same. Still having abdominal pain No flatus today Tolerating ng Objective Vital Signs Date Time Temp Pulse Resp B/P Pulse Ox O2 Delivery O2 Flow Rate FiO2 09/19/16 07:30 98.1 95 18 133/95 97 09/19/16 05:20 21 Chest: clear Cardiac: no m, r, g Abdomen: soft, mild gaseous distention, + bs Intake and Output 09/18/16 09/18/16 09/19/16 15:00 23:00 07:00 Intake Total 1300 ml 1155 ml Output Total 20 ml Balance 1280 ml 1155 ml Results/Medications Result Diagram: 09/19/16 0427 09/19/16 0427 Results 24 hrs Laboratory Tests Test 09/19/16 04:27 Alanine Aminotransferase (ALT/SGPT) 22 Albumin 2.6 L Albumin/Globulin Ratio 1.08 Alkaline Phosphatase 53 Anion Gap 10 Aspartate Amino Transf (AST/SGOT) 17 Basophils # 0.0 Basophils % 0.5 Blood Urea Nitrogen 10 Calcium Level 8.6 Carbon Dioxide Level 31 Chloride Level 102 Creatinine 0.63 Direct Bilirubin 0.00 Eosinophils # 0.9 H Eosinophils % 9.3 H Globulin 2.40 Glucose Level 99 Hematocrit 34.4 L Hemoglobin 11.7 L Indirect Bilirubin 0.6 Lymphocytes # 2.0 Lymphocytes % 21.5 Mean Corpuscular Hemoglobin 32.2 Mean Corpuscular Hemoglobin Concent 34.1 Mean Corpuscular Volume 94.4 Mean Platelet Volume 8.2 Monocytes # 0.7 Monocytes % 7.9 Neutrophils # 5.6 Neutrophils % 60.8 Nucleated Red Blood Cells # 0.0 Nucleated Red Blood Cells % 0.0 Platelet Count 256 Potassium Level 4.0 Red Blood Count 3.65 L Red Cell Distribution Width 14.0 Sodium Level 139 Total Bilirubin 0.6 Total Protein 5.0 L White Blood Count 9.3 Medications Current Medications Dextrose/Sodium Chloride (D5-1/2ns) 1,000 ml @ 125 mls/hr Q8H IV Last administered on 09/19/16t 10:32; Admin Dose 125 MLS/HR; Start 09/15/16 at 04:11 Ondansetron HCl (Zofran Inj) 4 mg Q6H PRN IV NAUSEA AND/OR VOMITING Last administered on 09/19/16 11:43; Admin Dose 4 MG; Start 09/15/16 at 04:30 Acetaminophen (Tylenol Supp) 650 mg Q6H PRN [place] PAIN LEVEL 1-3 OR FEVER; Start 09/15/16 at 04:30 Levothyroxine Sodium (Synthroid Iv) 50 mcg DAILY@06 IV Last administered on 05:37; Admin Dose 50 MCG; Start 09/15/16 at 06:00 Hydromorphone HCl (Dilaudid) 1 mg Q4H PRN IV SEVERE PAIN LEVEL 7-10 Last administered on 09/19/16 11:43; Admin Dose 1 MG; Start 09/15/16 at 08:30 Eye Lubricant 2 drop 2 drop QID BOTH EYES Last administered on 09/19/16 09:16 ; Admin Dose 2 DROP; Start 09/16/16 at 17:00 Ceftriaxone Sodium (Rocephin) 50 ml @ 100 mls/hr Q24H IVPB Last administered on 09/18/16 16:56; Admin Dose 100 MLS/HR; Start 09/16/16 at 17:00 Fluticasone Propionate (Flonase 0.05% Nasal) 2 spray DAILY NASAL ; Start at 10:00 Salmeterol Xinafoate/ Fluticasone (Advair 250/50 Diskus) 1 inh BID INH Last administered on 09/19/16 09:16; Admin Dose 1 INH; Start 09/18/16 at 09:41; Stop 09/24/16 at 08:59 Assessment/Plan Chief Complaint/Hosp Course Impression Small bowel Obstruction - likely related to prior abdominal surgery - some improvement based on KUB review with Dr. Salcedo Plan: Continue NG suction and iv fluid Followup KUB and Upright film - ordered Agree with plans as outlined by Dr. Joshua to proceed with surgery if SBO does not resolve with suction Problems: KEVIN MESA MD Sep 19, 2016 12:04
--- NOTE | 2016-09-19 14:36 | RADRPT ---
PROCEDURE: XR Abdomen. CLINICAL INDICATION: Abdominal pain. History of small bowel obstruction. TECHNIQUE: Two views. AP supine and AP erect. COMPARISON: 09/18/2016. FINDINGS: There is a nasogastric tube in the stomach and probably in the duodenum. Contrast is present throug hout the small bowel from a prior study. The small bowel is moderately dilated, similar to the prior study. Surgical clips are present in the midline upper epigastric region. There are degenerative changes of the right hip. 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 There are degenerative changes of the spine. IMPRESSION: 1. Small bowel obstruction, similar to the prior study. RPTAT: QQ .Rudolph Salcedo MD, MD Date Time Electronically viewed and signed by .Rudolph Salcedo MD, on 09/19/2016 14:36 .R/
[2016-09-19] MEDS: CEFTRIAXONE 1 GM/50 ML (PMX) 50 ML IVPB SCH (17:06)
--- NOTE | 2016-09-19 17:15 | PN ---
Date/Time of Note Date/Time of Note DATE: 09/19/16 TIME: 17:13 Assessment/Plan Lines/Catheters IV Catheter Type (from [facility]): Peripheral IV Chavez in Place (from [facility]): No Assessment/Plan Chief Complaint/Hosp Course 1. Abdominal pain with nausea, vomiting, with CT findings suggestive of possible partial bowel obstruction versus ileus. SBFT+ -ngt -npo -ivf -oob/ambulate -cancer surgery since min bowel function and patient prefers to wait. 2. Hypothyroidism -replete hormones. 3. Obesity, status post gastric bypass. -eventual nutrition optimization -encourage exercise. 4. Gastroesophageal reflux disease history. -diet and lifestyle optimization. 5. Asthma. Continue medical management. Thank you, Problems: Subjective 24 Hr Interval Summary NGT in place. Min flatus bu no BM. Feels somewhat better. Patient prefers to wait and avoid surgery at this time. She wants to give it more time. Min pain persists. No fevers or chills. No chest pain or shortness of breath. No visual or neurologic changes. No dysuria. No abnormal discharge. Minimal bloating. No headache. Exam/Review of Systems Vital Signs Vitals Vital Signs Date Time Temp Pulse Resp B/P Pulse Ox O2 Delivery O2 Flow Rate FiO2 09/19/16 07:30 98.1 95 18 133/95 97 09/19/16 05:20 21 Intake and Output 09/18/16 09/18/16 09/19/16 15:00 23:00 07:00 Intake Total 1300 ml 1155 ml Output Total 20 ml Balance 1280 ml 1155 ml Exam Free Text/Dictation GENERAL: No acute distress, comfortable, obese. HEENT: Pupils equal, reactive. No scleral icterus. Mucous membranes are moist. NECK: Supple, no crepitus, no JVD. PULMONARY: Normal respiratory effort. No wheezing. CARDIAC: S1, S2 present and irregular. ABDOMEN: Soft, minimally distended. Tender mostly on the left side. No rebound, no guarding, not rigid. No palpable hernias. EXTREMITIES: No edema. VASCULAR: Capillary refill is 2 seconds. NEUROLOGIC: Alert, oriented, moves all 4 extremities grossly. Results Result Diagram: 09/19/16 0427 09/19/16 0427 SURY WALTERS MD Sep 19, 2016 17:15
[2016-09-19 19:20] VITALS: BP 144/68; RESP 18
[2016-09-20] MEDS: ONDANSETRON 4 MG INJ IV PRN ×2 (00:09→06:03)
[2016-09-20] MEDS: HYDROmorphONE 1 MG/ML SYG IV PRN ×6 (00:11→21:51)
[2016-09-20] MEDS: DEXTROSE 5%-0.45% NACL 1,000 ML IV SCH (04:18)
[2016-09-20] MEDS: LEVOTHYROXINE 100 MCG VIAL IV SCH (06:02)
[2016-09-20 06:54] LABS: BASOPHILS % 0.4 % (0.0-2.0); EOSINOPHILS # 0.6 10^3/ul (0.0-0.5); EOSINOPHILS % 8.3 % (0.0-7.0); HEMATOCRIT 33.8 % (37.0-47.0); HEMOGLOBIN 11.5 g/dl (12.0-16.0); LYMPHOCYTES # 1.5 10^3/ul (0.8-2.9); LYMPHOCYTES % 20.8 % (15.0-51.0); MEAN CORPUSCULAR VOLUME 93.9 fl (82.0-101.0); MEAN PLATELET VOLUME 8.3 fl (7.4-10.4); MONOCYTE # 0.7 10^3/ul (0.3-0.9); NEUTROPHIL # 4.3 10^3/ul (1.6-7.5); NEUTROPHILS % 60.5 % (39.0-77.0); PLATELET COUNT 228 10^3/UL (140-440); RED CELL DISTRIBUTION WIDTH 13.8 % (11.5-14.5)
[2016-09-20 07:00] LABS: CONDITION 1
[2016-09-20 07:03] LABS: ALBUMIN 2.7 g/dl (3.3-4.9); POTASSIUM 3.4 mmol/L (3.5-5.1)
[2016-09-20 07:05] LABS: CREATININE 0.45 mg/dl (0.44-1.00)
[2016-09-20 07:06] LABS: ALBUMIN/GLOBULIN RATIO 1.17; BILIRUBIN,INDIRECT 0.5 mg/dl (0-1.1); BILIRUBIN,TOTAL 0.5 mg/dl (0.2-1.3)
[2016-09-20 07:07] LABS: CALCIUM 8.3 mg/dl (8.4-10.2)
[2016-09-20 08:12] VITALS: BP 116/56; RESP 18
--- NOTE | 2016-09-20 08:17 | CONS ---
Date/Time of Note Date/Time of Note DATE: 09/20/16 TIME: 08:14 Consult Date/Type/Reason Admit Date/Time Sep 15, 2016 at 01:10 Type of Consultation: GI Subjective Somewhat less pain Minimal flatus Objective Vital Signs Date Time Temp Pulse Resp B/P Pulse Ox O2 Delivery O2 Flow Rate FiO2 09/20/16 08:12 98.9 81 18 116/56 98 09/19/16 05:20 21 Abdomen: soft, mild gaseous distention, + bs Intake and Output 09/19/16 09/19/16 09/20/16 15:00 23:00 07:00 Intake Total 595 ml 1950 ml 1125 ml Output Total 1020 ml 1100 ml Balance 595 ml 930 ml 25 ml Results/Medications Result Diagram: 09/20/16 0540 09/20/16 0540 Results 24 hrs Laboratory Tests Test 09/20/16 05:40 Alanine Aminotransferase (ALT/SGPT) 23 Albumin 2.7 L Albumin/Globulin Ratio 1.17 Alkaline Phosphatase 58 Anion Gap 12 Aspartate Amino Transf (AST/SGOT) 38 Basophils # 0.0 Basophils % 0.4 Blood Urea Nitrogen 6 L Calcium Level 8.3 L Carbon Dioxide Level 29 Chloride Level 100 Creatinine 0.45 Direct Bilirubin 0.00 Eosinophils # 0.6 H Eosinophils % 8.3 H Globulin 2.30 Glucose Level 103 Hematocrit 33.8 L Hemoglobin 11.5 L Indirect Bilirubin 0.5 Lymphocytes # 1.5 Lymphocytes % 20.8 Mean Corpuscular Hemoglobin 32.0 Mean Corpuscular Hemoglobin Concent 34.0 Mean Corpuscular Volume 93.9 Mean Platelet Volume 8.3 Monocytes # 0.7 Monocytes % 10.0 Neutrophils # 4.3 Neutrophils % 60.5 Nucleated Red Blood Cells # 0.0 Nucleated Red Blood Cells % 0.0 Platelet Count 228 Potassium Level 3.4 L Red Blood Count 3.60 L Red Cell Distribution Width 13.8 Sodium Level 138 Total Bilirubin 0.5 Total Protein 5.0 L White Blood Count 7.0 # Medications Current Medications Dextrose/Sodium Chloride (D5-1/2ns) 1,000 ml @ 125 mls/hr Q8H IV Last administered on 09/20/16t 04:18; Admin Dose 125 MLS/HR; Start 09/15/16 at 04:11 Ondansetron HCl (Zofran Inj) 4 mg Q6H PRN IV NAUSEA AND/OR VOMITING Last administered on 09/20/16 06:03; Admin Dose 4 MG; Start 09/15/16 at 04:30 Acetaminophen (Tylenol Supp) 650 mg Q6H PRN [place] PAIN LEVEL 1-3 OR FEVER; Start 09/15/16 at 04:30 Levothyroxine Sodium (Synthroid Iv) 50 mcg DAILY@06 IV Last administered on 06:02; Admin Dose 50 MCG; Start 09/15/16 at 06:00 Hydromorphone HCl (Dilaudid) 1 mg Q4H PRN IV SEVERE PAIN LEVEL 7-10 Last administered on 09/20/16 04:18; Admin Dose 1 MG; Start 09/15/16 at 08:30 Eye Lubricant 2 drop 2 drop QID BOTH EYES Last administered on 09/19/16 20:43 ; Admin Dose 2 DROP; Start 09/16/16 at 17:00 Ceftriaxone Sodium (Rocephin) 50 ml @ 100 mls/hr Q24H IVPB Last administered on 09/19/16 17:06; Admin Dose 100 MLS/HR; Start 09/16/16 at 17:00 Fluticasone Propionate (Flonase 0.05% Nasal) 2 spray DAILY NASAL ; Start at 10:00 Salmeterol Xinafoate/ Fluticasone (Advair 250/50 Diskus) 1 inh BID INH Last administered on 09/19/16 20:43; Admin Dose 1 INH; Start 09/18/16 at 09:41; Stop 09/24/16 at 08:59 Assessment/Plan Chief Complaint/Hosp Course Impression Small bowel Obstruction - likely related to prior abdominal surgery - no significant change on kub yesterday Plan: Continue NG suction and iv fluid Followup KUB and Upright film - ordered Agree with plans as outlined by Dr. Joshua to proceed with surgery if SBO does not resolve with suction Discussed with patient Problems: KEVIN MESA MD Sep 20, 2016 08:17
[2016-09-20] MEDS: SALMETEROL/FLUTICASONE 250/50 INHA INH SCH ×2 (08:18→21:51)
[2016-09-20] MEDS: PANTOPRAZOLE 40 MG INJ IV SCH ×2 (08:18→17:04)
[2016-09-20] MEDS: FLUTICASONE 0.05% 16 GM NAS SPRAY NASAL SCH (08:18)
[2016-09-20] MEDS: ARTIFICIAL TEARS 15 ML OPH BOTH EYES SCH ×4 (08:19→21:51)
--- NOTE | 2016-09-20 09:45 | PN ---
Date/Time of Note Date/Time of Note DATE: 09/20/16 TIME: 09:41 Assessment/Plan VTE Prophylaxis VTE Prophylaxis Intervention: SCD's Lines/Catheters [facility] Peripheral IV Urinary Cath still in place: No Assessment/Plan Chief Complaint/Hosp Course 1. Abdominal pain , findings consistent with SBO . Patient is being seen by GI and surgery . UGI and SBO shows obstruction at ileum . She now has NG tube in place and it is draining ..She is passing some gas and has bowel sounds .Await results of KUB today . 2. continue IV fluids and NPO . Labs reviewed . need to replace potassium 3. Asthma , controlled Problems: Subjective 24 Hr Interval Summary Free Text/Dictation she feels less distended . She has passed some flatus . Cardiovascular: no complaints Gastrointestinal: decreased appetite, pain Genitourinary: no complaints Neurologic: no complaints Exam/Review of Systems Vital Signs Vitals Vital Signs Date Time Temp Pulse Resp B/P Pulse Ox O2 Delivery O2 Flow Rate FiO2 09/20/16 08:12 98.9 81 18 116/56 98 09/19/16 05:20 21 Intake and Output 09/19/16 09/19/16 09/20/16 15:00 23:00 07:00 Intake Total 595 ml 1950 ml 1125 ml Output Total 1020 ml 1100 ml Balance 595 ml 930 ml 25 ml Results Result Diagram: 09/20/16 0540 09/20/16 0540 Results 24 hrs Laboratory Tests Test 09/20/16 05:40 Alanine Aminotransferase (ALT/SGPT) 23 Albumin 2.7 L Albumin/Globulin Ratio 1.17 Alkaline Phosphatase 58 Anion Gap 12 Aspartate Amino Transf (AST/SGOT) 38 Basophils # 0.0 Basophils % 0.4 Blood Urea Nitrogen 6 L Calcium Level 8.3 L Carbon Dioxide Level 29 Chloride Level 100 Creatinine 0.45 Direct Bilirubin 0.00 Eosinophils # 0.6 H Eosinophils % 8.3 H Globulin 2.30 Glucose Level 103 Hematocrit 33.8 L Hemoglobin 11.5 L Indirect Bilirubin 0.5 Lymphocytes # 1.5 Lymphocytes % 20.8 Mean Corpuscular Hemoglobin 32.0 Mean Corpuscular Hemoglobin Concent 34.0 Mean Corpuscular Volume 93.9 Mean Platelet Volume 8.3 Monocytes # 0.7 Monocytes % 10.0 Neutrophils # 4.3 Neutrophils % 60.5 Nucleated Red Blood Cells # 0.0 Nucleated Red Blood Cells % 0.0 Platelet Count 228 Potassium Level 3.4 L Red Blood Count 3.60 L Red Cell Distribution Width 13.8 Sodium Level 138 Total Bilirubin 0.5 Total Protein 5.0 L White Blood Count 7.0 # Medications Medications Current Medications Ondansetron HCl (Zofran Inj) 4 mg Q6H PRN IV NAUSEA AND/OR VOMITING Last administered on 09/20/16 06:03; Admin Dose 4 MG; Start 09/15/16 at 04:30 Acetaminophen (Tylenol Supp) 650 mg Q6H PRN [place] PAIN LEVEL 1-3 OR FEVER; Start 09/15/16 at 04:30 Levothyroxine Sodium (Synthroid Iv) 50 mcg DAILY@06 IV Last administered on 06:02; Admin Dose 50 MCG; Start 09/15/16 at 06:00 Hydromorphone HCl (Dilaudid) 1 mg Q4H PRN IV SEVERE PAIN LEVEL 7-10 Last administered on 09/20/16 08:18; Admin Dose 1 MG; Start 09/15/16 at 08:30 Eye Lubricant 2 drop 2 drop QID BOTH EYES Last administered on 09/20/16 08:19 ; Admin Dose 2 DROP; Start 09/16/16 at 17:00 Ceftriaxone Sodium (Rocephin) 50 ml @ 100 mls/hr Q24H IVPB Last administered on 09/19/16 17:06; Admin Dose 100 MLS/HR; Start 09/16/16 at 17:00 Fluticasone Propionate (Flonase 0.05% Nasal) 2 spray DAILY NASAL Last administered on 09/20/16 08:18; Admin Dose 2 SPRAY; Start 09/17/16 at 10:00 Salmeterol Xinafoate/ Fluticasone 1 inh 1 inh BID INH Last administered on 09/20 08:18; Admin Dose 1 INH; Start 09/18/16 at 09:41; Stop 09/24/16 at 08:59 Potassium Chloride/Dextrose/ Sodium Chloride (KCl/D5-1/2ns) 1,015 ml @ 125 mls/ hr Q8H8M IV ; Start 09/20/16 at 09:35; Status ANNIE COBB MD Sep 20, 2016 09:45
[2016-09-20] MEDS: POTASSIUM CHLORIDE 30 MEQ in DEXTROSE 5%-0.45% NACL 1,000 ML IV SCH ×2 (13:08→22:38)
--- NOTE | 2016-09-20 16:13 | RADRPT ---
PROCEDURE: XR Abdomen. CLINICAL INDICATION: Follow-up small bowel obstruction TECHNIQUE: AP abdomen x-ray. COMPARISON: 09/19/2016 at 1344 hours FINDINGS: Distal tip of the nasogastric tube is pointing inferiorly in the region of the duodenum. Persistent contrast filled dilated loops of jejunum and ileum are again noted with some contrast media seen in the cecum, ascending colon and hepatic flexure, the contrast column overall not to advanced or progr essed since the prior exam. There is no contrast seen within the distal colon or rectum No viscerom egaly, soft tissue mass or pathologic calcification is demonstrated. The osseous structures are unremarkable. RPTAT:HJJR IMPRESSION: Persistent small bowel obstruction pattern has not changed significantly since the previous examinat ion of 09/19/2016. Physician Ignacio Date Time Electronically viewed and signed by Physician Ignacio on 09/20/2016 16:13 /
[2016-09-20] MEDS: CEFTRIAXONE 1 GM/50 ML (PMX) 50 ML IVPB SCH (17:04)
[2016-09-20 20:03] VITALS: BP 150/63; RESP 18
[2016-09-21] MEDS: HYDROmorphONE 1 MG/ML SYG IV PRN ×6 (01:58→23:10)
[2016-09-21 05:35] LABS: ALBUMIN 2.6 g/dl (3.3-4.9)
[2016-09-21 05:36] LABS: POTASSIUM 3.7 mmol/L (3.5-5.1)
[2016-09-21 05:38] LABS: ALBUMIN/GLOBULIN RATIO 1.13; BILIRUBIN,INDIRECT 0.6 mg/dl (0-1.1); BILIRUBIN,TOTAL 0.6 mg/dl (0.2-1.3); CREATININE 0.48 mg/dl (0.44-1.00); TOTAL PROTEIN 4.9 g/dl (6.1-8.1)
[2016-09-21 05:39] LABS: CALCIUM 8.3 mg/dl (8.4-10.2); MAGNESIUM 1.9 mg/dl (1.7-2.5); PHOSPHORUS 3.9 mg/dl (2.5-4.9)
[2016-09-21 05:44] LABS: BASOPHILS % 0.3 % (0.0-2.0); EOSINOPHILS # 0.5 10^3/ul (0.0-0.5); EOSINOPHILS % 5.7 % (0.0-7.0); HEMATOCRIT 33.4 % (37.0-47.0); HEMOGLOBIN 11.5 g/dl (12.0-16.0); LYMPHOCYTES # 1.4 10^3/ul (0.8-2.9); LYMPHOCYTES % 17.4 % (15.0-51.0); MEAN CORPUSCULAR HEMOGLOBIN 32.2 pg (29.0-33.0); MEAN CORPUSCULAR HGB CONC 34.3 g/dl (32.0-37.0); MEAN CORPUSCULAR VOLUME 93.9 fl (82.0-101.0); MEAN PLATELET VOLUME 7.9 fl (7.4-10.4); MONOCYTE # 0.8 10^3/ul (0.3-0.9); MONOCYTES % 9.6 % (0.0-11.0); NEUTROPHIL # 5.6 10^3/ul (1.6-7.5); PLATELET COUNT 252 10^3/UL (140-440); RED BLOOD COUNT 3.56 10^6/ul (4.20-5.40); RED CELL DISTRIBUTION WIDTH 13.7 % (11.5-14.5); UNCORRECTED WBC 8.3 10^3/ul (4.8-10.8); WHITE BLOOD COUNT 8.3 10^3/ul (4.8-10.8)
[2016-09-21 05:55] LABS: CONDITION 1
[2016-09-21] MEDS: LEVOTHYROXINE 100 MCG VIAL IV SCH (06:02)
[2016-09-21 07:18] VITALS: BP 117/84; RESP 18
[2016-09-21] MEDS: POTASSIUM CHLORIDE 30 MEQ in DEXTROSE 5%-0.45% NACL 1,000 ML IV SCH (07:18)
[2016-09-21] MEDS: PANTOPRAZOLE 40 MG INJ IV SCH ×2 (07:55→17:38)
[2016-09-21] MEDS: ARTIFICIAL TEARS 15 ML OPH BOTH EYES SCH ×4 (08:09→21:08)
[2016-09-21] MEDS: FLUTICASONE 0.05% 16 GM NAS SPRAY NASAL SCH (08:09)
[2016-09-21] MEDS: SALMETEROL/FLUTICASONE 250/50 INHA INH SCH ×2 (08:09→21:08)
[2016-09-21] MEDS ORDERED: POTASSIUM CHLORIDE 20 MEQ in DEXTROSE 5%-0.45% NACL 1,000 ML IV SCH (10:39)
--- NOTE | 2016-09-21 10:39 | PN ---
Date/Time of Note Date/Time of Note DATE: 09/21/16 TIME: 10:35 Assessment/Plan VTE Prophylaxis VTE Prophylaxis Intervention: SCD's Lines/Catheters IV Catheter Type (from Nrs): Peripheral IV Urinary Cath still in place: No Assessment/Plan Chief Complaint/Hosp Course 1. Abdominal pain , findings consistent with SBO ; however , she has had 2 BM's , one very large . She is being seen by Dr Humphreys and Dr Joshua . 2. continue IV fluids and NPO for now , X ray abdominal series ordered stat 3. Asthma , controlled Problems: Subjective 24 Hr Interval Summary Free Text/Dictation She is having less abdominal pain . She 2 BM's . one very large . Respiratory: no complaints Cardiovascular: no complaints Gastrointestinal: diarrhea, flatus, pain Genitourinary: no complaints Exam/Review of Systems Vital Signs Vitals Vital Signs Date Time Temp Pulse Resp B/P Pulse Ox O2 Delivery O2 Flow Rate FiO2 09/21/16 07:18 98.6 84 18 117/84 91 09/19/16 05:20 21 Intake and Output 09/20/16 09/20/16 09/21/16 15:00 23:00 07:00 Intake Total 1500 ml 1065 ml 690 ml Output Total 50 ml Balance 1500 ml 1065 ml 640 ml Results Result Diagram: 09/21/16 0439 09/21/16 0439 Results 24 hrs Laboratory Tests Test 09/21/16 04:39 Alanine Aminotransferase (ALT/SGPT) 24 Albumin 2.6 L Albumin/Globulin Ratio 1.13 Alkaline Phosphatase 73 Anion Gap 11 Aspartate Amino Transf (AST/SGOT) 20 Basophils # 0.0 Basophils % 0.3 Blood Urea Nitrogen 3 L Calcium Level 8.3 L Carbon Dioxide Level 32 H Chloride Level 99 Creatinine 0.48 Direct Bilirubin 0.00 Eosinophils # 0.5 Eosinophils % 5.7 Globulin 2.30 Glucose Level 112 Hematocrit 33.4 L Hemoglobin 11.5 L Indirect Bilirubin 0.6 Lymphocytes # 1.4 Lymphocytes % 17.4 Magnesium Level 1.9 Mean Corpuscular Hemoglobin 32.2 Mean Corpuscular Hemoglobin Concent 34.3 Mean Corpuscular Volume 93.9 Mean Platelet Volume 7.9 Monocytes # 0.8 Monocytes % 9.6 Neutrophils # 5.6 Neutrophils % 67.0 Nucleated Red Blood Cells # 0.0 Nucleated Red Blood Cells % 0.0 Phosphorus Level 3.9 Platelet Count 252 Potassium Level 3.7 Red Blood Count 3.56 L Red Cell Distribution Width 13.7 Sodium Level 138 Total Bilirubin 0.6 Total Protein 4.9 L White Blood Count 8.3 Medications Medications Current Medications Ondansetron HCl (Zofran Inj) 4 mg Q6H PRN IV NAUSEA AND/OR VOMITING Last administered on 09/20/16 06:03; Admin Dose 4 MG; Start 09/15/16 at 04:30 Acetaminophen (Tylenol Supp) 650 mg Q6H PRN [place] PAIN LEVEL 1-3 OR FEVER; Start 09/15/16 at 04:30 Levothyroxine Sodium (Synthroid Iv) 50 mcg DAILY@06 IV Last administered on 06:02; Admin Dose 50 MCG; Start 09/15/16 at 06:00 Hydromorphone HCl (Dilaudid) 1 mg Q4H PRN IV SEVERE PAIN LEVEL 7-10 Last administered on 09/21/16 10:04; Admin Dose 1 MG; Start 09/15/16 at 08:30 Eye Lubricant 2 drop 2 drop QID BOTH EYES Last administered on 09/21/16 08:09 ; Admin Dose 2 DROP; Start 09/16/16 at 17:00 Ceftriaxone Sodium (Rocephin) 50 ml @ 100 mls/hr Q24H IVPB Last administered on 09/20/16 17:04; Admin Dose 100 MLS/HR; Start 09/16/16 at 17:00 Fluticasone Propionate (Flonase 0.05% Nasal) 2 spray DAILY NASAL Last administered on 09/20/16 08:18; Admin Dose 2 SPRAY; Start 09/17/16 at 10:00 Salmeterol Xinafoate/ Fluticasone 1 inh 1 inh BID INH Last administered on 09/21 08:09; Admin Dose 1 INH; Start 09/18/16 at 09:41; Stop 09/24/16 at 08:59 Potassium Chloride/Dextrose/ Sodium Chloride (KCl/D5-1/2ns) 1,015 ml @ 125 mls/ hr Q8H8M IV Last administered on 09/21/16 07:18; Admin Dose 125 MLS/HR; Start 09/20/16 at 11:00 ANNIE STOUT MD Sep 21, 2016 10:39
[2016-09-21] MEDS: D5W-0.45 NACL + KCL 20 MEQ 1,000 ML IV SCH ×2 (12:31→19:00)
--- NOTE | 2016-09-21 12:43 | CONS ---
Date/Time of Note Date/Time of Note DATE: 09/21/16 TIME: 12:40 Consult Date/Type/Reason Admit Date/Time Sep 15, 2016 at 01:10 Type of Consultation: GI Subjective Patient tells me Dr. Joshua spoke with her last evening and recommended surgery which she refused Passed 2 bm today KUB pending Objective Vital Signs Date Time Temp Pulse Resp B/P Pulse Ox O2 Delivery O2 Flow Rate FiO2 09/21/16 07:18 98.6 84 18 117/84 91 09/19/16 05:20 21 Abdomen: soft, gaseous distention present, + bs Intake and Output 09/20/16 09/20/16 09/21/16 15:00 23:00 07:00 Intake Total 1500 ml 1065 ml 690 ml Output Total 50 ml Balance 1500 ml 1065 ml 640 ml Results/Medications Result Diagram: 09/21/16 0439 09/21/16 0439 Results 24 hrs Laboratory Tests Test 09/21/16 04:39 Alanine Aminotransferase (ALT/SGPT) 24 Albumin 2.6 L Albumin/Globulin Ratio 1.13 Alkaline Phosphatase 73 Anion Gap 11 Aspartate Amino Transf (AST/SGOT) 20 Basophils # 0.0 Basophils % 0.3 Blood Urea Nitrogen 3 L Calcium Level 8.3 L Carbon Dioxide Level 32 H Chloride Level 99 Creatinine 0.48 Direct Bilirubin 0.00 Eosinophils # 0.5 Eosinophils % 5.7 Globulin 2.30 Glucose Level 112 Hematocrit 33.4 L Hemoglobin 11.5 L Indirect Bilirubin 0.6 Lymphocytes # 1.4 Lymphocytes % 17.4 Magnesium Level 1.9 Mean Corpuscular Hemoglobin 32.2 Mean Corpuscular Hemoglobin Concent 34.3 Mean Corpuscular Volume 93.9 Mean Platelet Volume 7.9 Monocytes # 0.8 Monocytes % 9.6 Neutrophils # 5.6 Neutrophils % 67.0 Nucleated Red Blood Cells # 0.0 Nucleated Red Blood Cells % 0.0 Phosphorus Level 3.9 Platelet Count 252 Potassium Level 3.7 Red Blood Count 3.56 L Red Cell Distribution Width 13.7 Sodium Level 138 Total Bilirubin 0.6 Total Protein 4.9 L White Blood Count 8.3 Medications Current Medications Ondansetron HCl (Zofran Inj) 4 mg Q6H PRN IV NAUSEA AND/OR VOMITING Last administered on 09/20/16t 06:03; Admin Dose 4 MG; Start 09/15/16 at 04:30 Acetaminophen (Tylenol Supp) 650 mg Q6H PRN [place] PAIN LEVEL 1-3 OR FEVER; Start 09/15/16 at 04:30 Levothyroxine Sodium (Synthroid Iv) 50 mcg DAILY@06 IV Last administered on 06:02; Admin Dose 50 MCG; Start 09/15/16 at 06:00 Hydromorphone HCl (Dilaudid) 1 mg Q4H PRN IV SEVERE PAIN LEVEL 7-10 Last administered on 09/21/16 10:04; Admin Dose 1 MG; Start 09/15/16 at 08:30 Eye Lubricant 2 drop 2 drop QID BOTH EYES Last administered on 09/21/16 12:37 ; Admin Dose 2 DROP; Start 09/16/16 at 17:00 Ceftriaxone Sodium (Rocephin) 50 ml @ 100 mls/hr Q24H IVPB Last administered on 09/20/16 17:04; Admin Dose 100 MLS/HR; Start 09/16/16 at 17:00 Fluticasone Propionate (Flonase 0.05% Nasal) 2 spray DAILY NASAL Last administered on 09/20/16 08:18; Admin Dose 2 SPRAY; Start 09/17/16 at 10:00 Salmeterol Xinafoate/ Fluticasone 1 inh 1 inh BID INH Last administered on 09/21 08:09; Admin Dose 1 INH; Start 09/18/16 at 09:41; Stop 09/24/16 at 08:59 Potassium Chloride/Dextrose/ Sod Cl (D5-1/2ns + KCl 20 Meq) 1,000 ml @ 125 mls/ hr Q8H IV Last administered on 09/21/16 12:31; Admin Dose 125 MLS/HR; Start at 11:00 Assessment/Plan Chief Complaint/Hosp Course Impression Small bowel Obstruction - likely related to prior abdominal surgery - no significant change on kub yesterday Plan: Continue NG suction and iv fluid Followup KUB and Upright film - ordered Although I am encouraged by passage of bm, I am concerned about her persistent distention Decision as to surgery pending repeat KUB today Problems: KEVIN MESA MD Sep 21, 2016 12:43
--- NOTE | 2016-09-21 14:46 | RADRPT ---
PROCEDURE: XR Abdomen. CLINICAL INDICATION: Abdomen pain. Small bowel obstruction. TECHNIQUE: AP supine abdomen x-ray. COMPARISON: 09/20/2016. FINDINGS: There is a nasogastric tube with the tip in the first part of the duodenum. There is contrast in th e mildly dilated small bowel in the left side of the abdomen. There is gas containing dilated small bowel in the upper abdomen. Contrast containing decompressed small bowel is present in the right l ower quadrant. Contrast is also present throughout the colon and rectosigmoid. There is diverticulosis of the sigm oid colon. There are degenerative changes of the spine and right hip. 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 IMPRESSION: 1. Nasogastric tube tip in the first part of duodenum. 2. Partial small bowel obstruction with distally decompressed small bowel. 3. Contrast throughout the colon and rectosigmoid. 4. Diverticulosis of the sigmoid colon. RPTAT: QQ .Rudolph Salcedo MD, MD Date Time Electronically viewed and signed by .Rudolph Salcedo MD, on 09/21/2016 14:46 .R/
[2016-09-21] MEDS: CEFTRIAXONE 1 GM/50 ML (PMX) 50 ML IVPB SCH (17:38)
--- NOTE | 2016-09-21 19:51 | PN ---
Date/Time of Note Date/Time of Note DATE: 09/20/16 TIME: 19:49 Assessment/Plan Lines/Catheters IV [facility]ter Type (from [facility]): Saline Lock Chavez in Place (from Nrs): No Assessment/Plan Chief Complaint/Hosp Course 1. Abdominal pain with nausea, vomiting, with CT findings suggestive of possible partial bowel obstruction versus ileus. +SBFT. No surgery per patient at this time. -ngt -npo -ivf -oob/ambulate 2. Hypothyroidism -replete hormones. 3. Obesity, status post gastric bypass. -eventual nutrition optimization -encourage exercise. 4. Gastroesophageal reflux disease history. -diet and lifestyle optimization. 5. Asthma. Continue medical management. Thank you, Late entry 09/20 Problems: Subjective 24 Hr Interval Summary NGT in place. Min flatus but no BM. Feels better. Patient prefers to wait and avoid surgery at this time. Min pain. No fevers or chills. No chest pain or shortness of breath. No visual or neurologic changes. No dysuria. No abnormal discharge. Minimal bloating. No headache. Exam/Review of Systems Vital Signs Vitals Vital Signs Date Time Temp Pulse Resp B/P Pulse Ox O2 Delivery O2 Flow Rate FiO2 09/21/16 15:06 92 Room Air 09/21/16 07:18 98.6 84 18 117/84 09/19/16 05:20 21 Intake and Output 09/20/16 09/20/16 09/21/16 15:00 23:00 07:00 Intake Total 1500 ml 1065 ml 690 ml Output Total 50 ml Balance 1500 ml 1065 ml 640 ml Exam Free Text/Dictation GENERAL: No acute distress, comfortable, obese. HEENT: Pupils equal, reactive. No scleral icterus. Mucous membranes are moist. NECK: Supple, no crepitus, no JVD. PULMONARY: Normal respiratory effort. No wheezing. CARDIAC: S1, S2 present and irregular. ABDOMEN: Soft, ND. NT. No rebound, no guarding, not rigid. No palpable hernias. EXTREMITIES: No edema. VASCULAR: Capillary refill is 2 seconds. NEUROLOGIC: Alert, oriented, moves all 4 extremities grossly. Results Result Diagram: 09/21/16 0439 09/21/16 0439 SURY WALTERS MD Sep 21, 2016 19:51
--- NOTE | 2016-09-21 19:53 | PN ---
Date/Time of Note Date/Time of Note DATE: 09/21/16 TIME: 19:51 Assessment/Plan Lines/Catheters IV C[facility]ter Type (from [facility]): Saline Lock Chavez in Place (from Nrs): No Assessment/Plan Chief Complaint/Hosp Course 1. Abdominal pain with nausea, vomiting, with CT findings suggestive of possible partial bowel obstruction versus ileus. +SBFT. No surgery per patient at this time. -ngt keep in place. -start clears and see if patient tolerates diet -ivf -oob/ambulate 2. Hypothyroidism -replete hormones. 3. Obesity, status post gastric bypass. -eventual nutrition optimization -encourage exercise. 4. Gastroesophageal reflux disease history. -diet and lifestyle optimization. 5. Asthma. Continue medical management. Thank you, Problems: Subjective 24 Hr Interval Summary NGT in place. Flatus and bm. Feels better. Patient prefers to wait and avoid surgery at this time. Min pain. No fevers or chills. No chest pain or shortness of breath. No visual or neurologic changes. No dysuria. No abnormal discharge. Minimal bloating. No headache. KUB noted. Exam/Review of Systems Vital Signs Vitals Vital Signs Date Time Temp Pulse Resp B/P Pulse Ox O2 Delivery O2 Flow Rate FiO2 09/21/16 15:06 92 Room Air 09/21/16 07:18 98.6 84 18 117/84 09/19/16 05:20 21 Intake and Output 09/20/16 09/20/16 09/21/16 15:00 23:00 07:00 Intake Total 1500 ml 1065 ml 690 ml Output Total 50 ml Balance 1500 ml 1065 ml 640 ml Exam Free Text/Dictation GENERAL: No acute distress, comfortable, obese. HEENT: Pupils equal, reactive. No scleral icterus. Mucous membranes are moist. NECK: Supple, no crepitus, no JVD. PULMONARY: Normal respiratory effort. No wheezing. CARDIAC: S1, S2 present and irregular. ABDOMEN: Soft, ND. NT. No rebound, no guarding, not rigid. No palpable hernias. EXTREMITIES: No edema. VASCULAR: Capillary refill is 2 seconds. NEUROLOGIC: Alert, oriented, moves all 4 extremities grossly. Results Result Diagram: 09/21/16 0439 09/21/16 0439 SURY WALTERS MD Sep 21, 2016 19:53
[2016-09-21 21:08] VITALS: BP 112/57; RESP 18
[2016-09-22] MEDS: HYDROmorphONE 1 MG/ML SYG IV PRN ×5 (04:51→22:02)
[2016-09-22] MEDS: LEVOTHYROXINE 100 MCG VIAL IV SCH (06:00)
[2016-09-22 06:28] LABS: BASOPHILS % 0.4 % (0.0-2.0); EOSINOPHILS # 0.5 10^3/ul (0.0-0.5); EOSINOPHILS % 6.2 % (0.0-7.0); HEMOGLOBIN 11.9 g/dl (12.0-16.0); LYMPHOCYTES # 1.7 10^3/ul (0.8-2.9); LYMPHOCYTES % 21.7 % (15.0-51.0); MEAN CORPUSCULAR HGB CONC 34.2 g/dl (32.0-37.0); MEAN CORPUSCULAR VOLUME 93.8 fl (82.0-101.0); MEAN PLATELET VOLUME 8.1 fl (7.4-10.4); MONOCYTE # 0.8 10^3/ul (0.3-0.9); NEUTROPHIL # 4.8 10^3/ul (1.6-7.5); NEUTROPHILS % 61.7 % (39.0-77.0); PLATELET COUNT 273 10^3/UL (140-440); RED BLOOD COUNT 3.73 10^6/ul (4.20-5.40); RED CELL DISTRIBUTION WIDTH 14.1 % (11.5-14.5); UNCORRECTED WBC 7.8 10^3/ul (4.8-10.8); WHITE BLOOD COUNT 7.8 10^3/ul (4.8-10.8)
[2016-09-22 06:34] LABS: CONDITION 1
[2016-09-22 06:53] LABS: ALBUMIN 2.7 g/dl (3.3-4.9)
[2016-09-22 06:54] LABS: POTASSIUM 4.2 mmol/L (3.5-5.1)
[2016-09-22 06:56] LABS: BILIRUBIN,INDIRECT 0.7 mg/dl (0-1.1); BILIRUBIN,TOTAL 0.7 mg/dl (0.2-1.3); CREATININE 0.52 mg/dl (0.44-1.00)
[2016-09-22 06:57] LABS: ALBUMIN/GLOBULIN RATIO 1.12; CALCIUM 8.6 mg/dl (8.4-10.2); TOTAL PROTEIN 5.1 g/dl (6.1-8.1)
[2016-09-22 07:20] VITALS: BP 143/63; RESP 18
[2016-09-22] MEDS: SALMETEROL/FLUTICASONE 250/50 INHA INH SCH ×2 (08:35→20:52)
[2016-09-22] MEDS: ARTIFICIAL TEARS 15 ML OPH BOTH EYES SCH ×4 (08:35→21:58)
[2016-09-22] MEDS: PANTOPRAZOLE 40 MG INJ IV SCH ×2 (08:35→17:28)
[2016-09-22] MEDS: FLUTICASONE 0.05% 16 GM NAS SPRAY NASAL SCH (08:36)
[2016-09-22] MEDS: D5W-0.45 NACL + KCL 20 MEQ 1,000 ML IV SCH ×4 (11:48→20:52)
--- NOTE | 2016-09-22 13:36 | PN ---
Date/Time of Note Date/Time of Note DATE: 09/22/16 TIME: 13:30 Assessment/Plan VTE Prophylaxis VTE Prophylaxis Intervention: ambulation, SCD's Lines/Catheters IV Catheter Type (from Nrsg): Peripheral IV Urinary Cath still in place: No Assessment/Plan Chief Complaint/Hosp Course SBO, improving Problems: Assessment/Plan -SBO - noted on admission CT; improving on KUB; repeat portable KUB today - symptoms improved - continue with NG - defer to surgery if can check to see if any residual and possible discontinue NG tube in next 24-48h - advance diet if okay with surgery; tolerating clear liquids - continue IVF until able to take in more po - is amenable to surgery if needed but with flatus, BMs, improved pain and distention, may not need at this time; if pain recurs or symptoms recur this admission or after, suspect may need ex-lap or LIZ - all meds per IV as able - PPI - ppx abx with ceftriaxone - hold ASA -Asthma, mild persistent - continue Advair; will add albuterol PRN but no major wheezing noted -Acquired hypothyroidism - levothyroxine via IV until more established po intake -Anemia - mild; stable; no need for transfusion; consider Venofer -HL - hold statin until taking more po -DVT ppx - SCDs, ambulation -Code - full -Dispo - pending resolution of SBO Cont'd Hospitalization Reason: SBO Subjective 24 Hr Interval Summary Free Text/Dictation Feels pain is much improved. Still requiring Dilaudid. Does get a little "loopy " but not much. Having small, loose BMs - has to go at end of my encounter. No dysuria. No cp or SOB. Has not noted any wheeze. No f/c. Not much OOB - nervous to walk around until NG tube removed. No PABON. No nausea. Tolerating liquids. Constitutional: improved (still using opioids) ENT: other (discomfort with NG tube) Respiratory: other (congested, coarse) Cardiovascular: no complaints Gastrointestinal: pain (improved), passing stool Genitourinary: no complaints Musculoskeletal: no complaints Exam/Review of Systems Vital Signs Vitals Vital Signs Date Time Temp Pulse Resp B/P Pulse Ox O2 Delivery O2 Flow Rate FiO2 09/22/16 07:20 98.6 82 18 143/63 97 09/21/16 15:06 Room Air 2/15/17 05:20 21 Intake and Output 09/21/16 09/21/16 09/22/16 15:00 23:00 07:00 Intake Total 875 ml 550 ml 1110 ml Output Total 20 ml Balance 875 ml 530 ml 1110 ml Results Result Diagram: 09/22/16 0441 09/22/16 0441 Results 24 hrs Laboratory Tests Test 09/22/16 04:41 Alanine Aminotransferase (ALT/SGPT) 25 Albumin 2.7 L Albumin/Globulin Ratio 1.12 Alkaline Phosphatase 88 Anion Gap 12 Aspartate Amino Transf (AST/SGOT) 24 Basophils # 0.0 Basophils % 0.4 Blood Urea Nitrogen 3 L Calcium Level 8.6 Carbon Dioxide Level 32 H Chloride Level 101 Creatinine 0.52 Direct Bilirubin 0.00 Eosinophils # 0.5 Eosinophils % 6.2 Globulin 2.40 Glucose Level 88 Hematocrit 35.0 L Hemoglobin 11.9 L Indirect Bilirubin 0.7 Lymphocytes # 1.7 Lymphocytes % 21.7 Mean Corpuscular Hemoglobin 32.0 Mean Corpuscular Hemoglobin Concent 34.2 Mean Corpuscular Volume 93.8 Mean Platelet Volume 8.1 Monocytes # 0.8 Monocytes % 10.0 Neutrophils # 4.8 Neutrophils % 61.7 Nucleated Red Blood Cells # 0.0 Nucleated Red Blood Cells % 0.0 Platelet Count 273 Potassium Level 4.2 Red Blood Count 3.73 L Red Cell Distribution Width 14.1 Sodium Level 141 Total Bilirubin 0.7 Total Protein 5.1 L White Blood Count 7.8 Medications Medications Current Medications Ondansetron HCl (Zofran Inj) 4 mg Q6H PRN IV NAUSEA AND/OR VOMITING Last administered on 09/20/16 06:03; Admin Dose 4 MG; Start 09/15/16 at 04:30 Acetaminophen (Tylenol Supp) 650 mg Q6H PRN [place] PAIN LEVEL 1-3 OR FEVER; Start 09/15/16 at 04:30 Levothyroxine Sodium (Synthroid Iv) 50 mcg DAILY@06 IV Last administered on 06:00; Admin Dose 50 MCG; Start 09/15/16 at 06:00 Hydromorphone HCl (Dilaudid) 1 mg Q4H PRN IV SEVERE PAIN LEVEL 7-10 Last administered on 09/22/16 13:27; Admin Dose 1 MG; Start 09/15/16 at 08:30 Eye Lubricant 2 drop 2 drop QID BOTH EYES Last administered on 09/22/16 13:27 ; Admin Dose 2 DROP; Start 09/16/16 at 17:00 Ceftriaxone Sodium (Rocephin) 50 ml @ 100 mls/hr Q24H IVPB Last administered on 09/21/16 17:38; Admin Dose 100 MLS/HR; Start 09/16/16 at 17:00 Fluticasone Propionate (Flonase 0.05% Nasal) 2 spray DAILY NASAL Last administered on 09/20/16 08:18; Admin Dose 2 SPRAY; Start 09/17/16 at 10:00 Salmeterol Xinafoate/ Fluticasone 1 inh 1 inh BID INH Last administered on 09/22 08:35; Admin Dose 1 INH; Start 09/18/16 at 09:41; Stop 09/24/16 at 08:59 Potassium Chloride/Dextrose/ Sod Cl (D5-1/2ns + KCl 20 Meq) 1,000 ml @ 125 mls/ hr Q8H IV Last administered on 09/22/16 11:49; Admin Dose 125 MLS/HR; Start at 11:00 SILVANA MCCOY Sep 22, 2016 13:36
--- NOTE | 2016-09-22 13:47 | CONS ---
Date/Time of Note Date/Time of Note DATE: 09/22/16 TIME: 13:44 Assessment/Plan Assessment/Plan Chief Complaint/Hosp Course IMPRESSION: 1. Small-bowel obstruction: A CAT scan of the abdomen was done which shows dilated loops of small bowel consistent with a bowel obstruction. Likely due to adhesions secondary to several abdominal surgeries and certainly is at risk of having adhesions and small-bowel obstruction. Now improving, having BM and passing gas. 2. Gastroesophageal reflux disease. 3. nausea and vomiting secondary to #1 4. hiatal hernia, preventing insertion of NGT PLAN: 1. advance diet as tolerated 2. continue IV fluids. 3. Continue PPI at bid dosing 4. dc NGT per Dr. Joshua Problems: Consultation Date/Type/Reason Admit Date/Time Sep 15, 2016 at 01:10 Type of Consultation: GI 24 HR Interval Summary Free Text/Dictation Feels pain is much improved. Since last night, she is passing gas and having BMs. No dysuria. No cp or SOB. Has not noted any wheeze. No f/c. No nausea. Tolerating liquids. Constitutional: improved Exam/Review of Systems Vital Signs Vitals Vital Signs Date Time Temp Pulse Resp B/P Pulse Ox O2 Delivery O2 Flow Rate FiO2 09/22/16 07:20 98.6 82 18 143/63 97 09/21/16 15:06 Room Air 09/19/16 05:20 21 Intake and Output 09/21/16 09/21/16 09/22/16 15:00 23:00 07:00 Intake Total 875 ml 550 ml 1110 ml Output Total 20 ml Balance 875 ml 530 ml 1110 ml Exam Constitutional: alert, oriented, well developed Psych: nl mood/affect, no complaints Head: atraumatic, normocephalic Eyes: EOMI, nl conjunctiva, nl lids, nl sclera ENMT: mucosa pink and moist, nl external ears & nose, nl lips & teeth, nl nasal mucosa & septum Neck: non-tender, supple Respiratory: clear to auscultation, normal air movement Cardiovascular: nl pulses, regular rate and rhythm Gastrointestinal: bowel sounds, non-tender, soft Results Result Diagram: 09/22/1644009/22/16 0441 Results 24 hrs Laboratory Tests Test 09/22/16 04:41 Alanine Aminotransferase (ALT/SGPT) 25 Albumin 2.7 L Albumin/Globulin Ratio 1.12 Alkaline Phosphatase 88 Anion Gap 12 Aspartate Amino Transf (AST/SGOT) 24 Basophils # 0.0 Basophils % 0.4 Blood Urea Nitrogen 3 L Calcium Level 8.6 Carbon Dioxide Level 32 H Chloride Level 101 Creatinine 0.52 Direct Bilirubin 0.00 Eosinophils # 0.5 Eosinophils % 6.2 Globulin 2.40 Glucose Level 88 Hematocrit 35.0 L Hemoglobin 11.9 L Indirect Bilirubin 0.7 Lymphocytes # 1.7 Lymphocytes % 21.7 Mean Corpuscular Hemoglobin 32.0 Mean Corpuscular Hemoglobin Concent 34.2 Mean Corpuscular Volume 93.8 Mean Platelet Volume 8.1 Monocytes # 0.8 Monocytes % 10.0 Neutrophils # 4.8 Neutrophils % 61.7 Nucleated Red Blood Cells # 0.0 Nucleated Red Blood Cells % 0.0 Platelet Count 273 Potassium Level 4.2 Red Blood Count 3.73 L Red Cell Distribution Width 14.1 Sodium Level 141 Total Bilirubin 0.7 Total Protein 5.1 L White Blood Count 7.8 Medications Medications Current Medications Ondansetron HCl (Zofran Inj) 4 mg Q6H PRN IV NAUSEA AND/OR VOMITING Last administered on 09/20/16 06:03; Admin Dose 4 MG; Start 09/15/16 at 04:30 Acetaminophen (Tylenol Supp) 650 mg Q6H PRN [place] PAIN LEVEL 1-3 OR FEVER; Start 09/15/16 at 04:30 Levothyroxine Sodium (Synthroid Iv) 50 mcg DAILY@06 IV Last administered on 06:00; Admin Dose 50 MCG; Start 09/15/16 at 06:00 Hydromorphone HCl (Dilaudid) 1 mg Q4H PRN IV SEVERE PAIN LEVEL 7-10 Last administered on 09/22/16 13:27; Admin Dose 1 MG; Start 09/15/16 at 08:30 Eye Lubricant 2 drop 2 drop QID BOTH EYES Last administered on 09/22/16 13:27 ; Admin Dose 2 DROP; Start 09/16/16 at 17:00 Ceftriaxone Sodium (Rocephin) 50 ml @ 100 mls/hr Q24H IVPB Last administered on 09/21/16 17:38; Admin Dose 100 MLS/HR; Start 09/16/16 at 17:00 Fluticasone Propionate (Flonase 0.05% Nasal) 2 spray DAILY NASAL Last administered on 09/20/16 08:18; Admin Dose 2 SPRAY; Start 09/17/16 at 10:00 Salmeterol Xinafoate/ Fluticasone 1 inh 1 inh BID INH Last administered on 09/22 08:35; Admin Dose 1 INH; Start 09/18/16 at 09:41; Stop 09/24/16 at 08:59 Potassium Chloride/Dextrose/ Sod Cl (D5-1/2ns + KCl 20 Meq) 1,000 ml @ 125 mls/ hr Q8H IV Last administered on 09/22/16 11:49; Admin Dose 125 MLS/HR; Start at 11:00 RAVEN CHANEY MD Sep 22, 2016 13:47
[2016-09-22] MEDS ORDERED: ALBUTEROL 0.5% (NEB) 2.5 MG/0.5 ML AMP HHN PRN (14:00)
--- NOTE | 2016-09-22 15:27 | RADRPT ---
PROCEDURE: XR Abdomen. CLINICAL INDICATION: Assess for resolving partial small bowel obstruction. TECHNIQUE: AP abdomen x-ray. COMPARISON: KUB 09/21/2016. FINDINGS: The dilated small bowel loops previous identified in the left abdomen appear 40 compressed this time . Air-filled small bowel loops are still noted in the left upper abdomen. Contrast is now noted in the distal small bowel and colon. A total left hip arthroplasty is noted. There are multiple phleb oliths in the pelvis. An NG tube is noted distal to the GE junction. IMPRESSION: 1. Resolution versus decompression of the partial mechanical small-bowel obstruction identified on 09/21/2016. A nasogastric tube is noted in place distal to the GE junction. 2. Status post total left hip arthroplasty. Physician Victorino Date Time Electronically viewed and signed by Physician Victorino on 09/22/2016 15:27 /
[2016-09-22] MEDS: CEFTRIAXONE 1 GM/50 ML (PMX) 50 ML IVPB SCH (17:28)
--- NOTE | 2016-09-22 20:01 | PN ---
Date/Time of Note Date/Time of Note DATE: 09/22/16 TIME: 20:00 Assessment/Plan Lines/Catheters IV Catheter Type (from Nrs): Peripheral IV Chavez in Place (from Nrs): No Assessment/Plan Chief Complaint/Hosp Course 1. Abdominal pain with nausea, vomiting, with CT findings suggestive of possible partial bowel obstruction versus ileus. +SBFT. No surgery per patient at this time. -dc ngt -advance diet as tolerated -oob/ambulate 2. Hypothyroidism -replete hormones. 3. Obesity, status post gastric bypass. -eventual nutrition optimization -encourage exercise. 4. Gastroesophageal reflux disease history. -diet and lifestyle optimization. 5. Asthma. Continue medical management. Thank you, Problems: Subjective 24 Hr Interval Summary NGT in place. Flatus and bms. Feels better. Pain improved. No nausea or vomiting on clears. Min residuals. No fevers or chills. No chest pain or shortness of breath. No visual or neurologic changes. No dysuria. No abnormal discharge. Bloating improved. No headache. Exam/Review of Systems Vital Signs Vitals Vital Signs Date Time Temp Pulse Resp B/P Pulse Ox O2 Delivery O2 Flow Rate FiO2 09/22/16 07:20 98.6 82 18 143/63 97 09/21/16 15:06 Room Air 09/19/16 05:20 21 Intake and Output 09/21/16 09/21/16 09/22/16 15:00 23:00 07:00 Intake Total 875 ml 550 ml 1110 ml Output Total 20 ml Balance 875 ml 530 ml 1110 ml Exam Free Text/Dictation GENERAL: No acute distress, comfortable, obese. HEENT: Pupils equal, reactive. No scleral icterus. Mucous membranes are moist. NECK: Supple, no crepitus, no JVD. PULMONARY: Normal respiratory effort. No wheezing. CARDIAC: S1, S2 present and irregular. ABDOMEN: Soft, ND. NT. No rebound, no guarding, not rigid. No palpable hernias. EXTREMITIES: No edema. VASCULAR: Capillary refill is 2 seconds. NEUROLOGIC: Alert, oriented, moves all 4 extremities grossly. Results Result Diagram: 09/22/16 0441 09/22/16 044 SURY WALTERS MD Sep 22, 2016 20:01
[2016-09-22 20:44] VITALS: BP 119/56; RESP 82
[2016-09-23] MEDS: HYDROmorphONE 1 MG/ML SYG IV PRN ×4 (02:10→20:17)
[2016-09-23] MEDS: D5W-0.45 NACL + KCL 20 MEQ 1,000 ML IV SCH (05:31)
[2016-09-23] MEDS: PANTOPRAZOLE 40 MG INJ IV SCH (06:05)
[2016-09-23] MEDS: LEVOTHYROXINE 100 MCG VIAL IV SCH (06:05)
[2016-09-23 06:51] LABS: POTASSIUM 4.7 mmol/L (3.5-5.1)
[2016-09-23 06:54] LABS: CREATININE 0.5 mg/dl (0.44-1.00)
[2016-09-23 06:55] LABS: CALCIUM 8.7 mg/dl (8.4-10.2); MAGNESIUM 1.9 mg/dl (1.7-2.5); PHOSPHORUS 3.7 mg/dl (2.5-4.9)
[2016-09-23 07:10] LABS: BASOPHILS % 0.3 % (0.0-2.0); EOSINOPHILS # 0.7 10^3/ul (0.0-0.5); EOSINOPHILS % 7.1 % (0.0-7.0); HEMATOCRIT 35.7 % (37.0-47.0); HEMOGLOBIN 12.2 g/dl (12.0-16.0); LYMPHOCYTES # 0.8 10^3/ul (0.8-2.9); LYMPHOCYTES % 7.7 % (15.0-51.0); MEAN CORPUSCULAR VOLUME 93.9 fl (82.0-101.0); MEAN PLATELET VOLUME 7.9 fl (7.4-10.4); MONOCYTE # 0.9 10^3/ul (0.3-0.9); MONOCYTES % 8.8 % (0.0-11.0); NEUTROPHIL # 7.5 10^3/ul (1.6-7.5); NEUTROPHILS % 76.1 % (39.0-77.0); PLATELET COUNT 275 10^3/UL (140-440); RED CELL DISTRIBUTION WIDTH 14.1 % (11.5-14.5); UNCORRECTED WBC 9.9 10^3/ul (4.8-10.8); WHITE BLOOD COUNT 9.9 10^3/ul (4.8-10.8)
[2016-09-23 07:35] LABS: CONDITION 1
[2016-09-23 08:28] VITALS: BP 125/58; RESP 18
[2016-09-23] MEDS: ARTIFICIAL TEARS 15 ML OPH BOTH EYES SCH ×4 (08:58→20:25)
[2016-09-23] MEDS: FLUTICASONE 0.05% 16 GM NAS SPRAY NASAL SCH (08:58)
[2016-09-23] MEDS: SALMETEROL/FLUTICASONE 250/50 INHA INH SCH ×2 (08:58→20:25)
[2016-09-23] MEDS ORDERED: HYDROmorphONE 1 MG/ML SYG IV PRN (11:30)
--- NOTE | 2016-09-23 11:31 | PN ---
Date/Time of Note Date/Time of Note DATE: 09/23/16 TIME: 11:25 Assessment/Plan VTE Prophylaxis VTE Prophylaxis Intervention: ambulation, SCD's Lines/Catheters IV Catheter Type (from Nrs): Peripheral IV Urinary Cath still in place: No Assessment/Plan Chief Complaint/Hosp Course SBO, improving Problems: Assessment/Plan -SBO - noted on admission CT; improvement on KUB 09/22 with appearance of resolution on imaging - continue to monitor for flatus, BMs - continue dilaudid 0.5mg IV q4h PRN and discuss transition to po options in next 24h - advance diet as tolerated - to soft diet today - NG tube removed 09/22PM by surgery - wean down IVF - change to NS 50mL/hr to see how she can improve her own po intake; remove dextrose with advancement of diet, remove KCl with rising KCl on labs - add back ASA with surgery no longer seeming to be needed - change PPI to po - resume Mucinex - change levothyoxine to po in AM - dc ceftriaxone 09/23 - improving and remains afebrile, no signs/symptoms consistent with infection -Asthma, mild persistent - continue Advair; albuterol PRN but no major wheezing noted -Acquired hypothyroidism - levothyroxine back to po -Anemia, reactive - mild, improved -HL - resume statin, adjust to formulary -DVT ppx - SCDs, ambulation -Code - full -Dispo - pending adequate po intake and adjustment to po pain regimen; suspect DC in next 48-72h Subjective 24 Hr Interval Summary Free Text/Dictation NG tube removed last night. No BMs, no flatus she can recall today, since I last saw her. Voiding frequently, no dysuria. No cp or SOB. Mild congestion. No f/c. No n/v. Tolerating full liquid and hungry for soft. Wants to go for more walks today - was walking around yesterday after NG tube out. Constitutional: improved Respiratory: no complaints Cardiovascular: no complaints Gastrointestinal: pain (cannot make it the 6 hours without flare in pain) Exam/Review of Systems Vital Signs Vitals Vital Signs Date Time Temp Pulse Resp B/P Pulse Ox O2 Delivery O2 Flow Rate FiO2 09/23/16 08:28 98.3 78 18 125/58 99 09/21/16 15:06 Room Air Intake and Output 09/22/16 09/22/16 09/23/16 15:00 23:00 07:00 Intake Total 2650 ml 1400 ml Output Total 0 ml 0 ml Balance 0 ml 2650 ml 1400 ml Results Result Diagram: 09/23/16 0530 09/23/16 0530 Results 24 hrs Laboratory Tests Test 09/23/16 05:30 Anion Gap 12 Basophils # 0.0 Basophils % 0.3 Blood Urea Nitrogen 3 L Calcium Level 8.7 Carbon Dioxide Level 31 Chloride Level 100 Creatinine 0.50 Eosinophils # 0.7 H Eosinophils % 7.1 H Glucose Level 108 Hematocrit 35.7 L Hemoglobin 12.2 Lymphocytes # 0.8 Lymphocytes % 7.7 L Magnesium Level 1.9 Mean Corpuscular Hemoglobin 32.0 Mean Corpuscular Hemoglobin Concent 34.0 Mean Corpuscular Volume 93.9 Mean Platelet Volume 7.9 Monocytes # 0.9 Monocytes % 8.8 Neutrophils # 7.5 Neutrophils % 76.1 Nucleated Red Blood Cells # 0.0 Nucleated Red Blood Cells % 0.0 Phosphorus Level 3.7 Platelet Count 275 Potassium Level 4.7 Red Blood Count 3.80 L Red Cell Distribution Width 14.1 Sodium Level 138 White Blood Count 9.9 # Medications Medications Current Medications Ondansetron HCl (Zofran Inj) 4 mg Q6H PRN IV NAUSEA AND/OR VOMITING Last administered on 09/20/16 06:03; Admin Dose 4 MG; Start 09/15/16 at 04:30 Acetaminophen (Tylenol Supp) 650 mg Q6H PRN [place] PAIN LEVEL 1-3 OR FEVER; Start 09/15/16 at 04:30 Levothyroxine Sodium (Synthroid Iv) 50 mcg DAILY@06 IV Last administered on 06:05; Admin Dose 50 MCG; Start 09/15/16 at 06:00 Eye Lubricant 2 drop 2 drop QID BOTH EYES Last administered on 09/23/16 08:58 ; Admin Dose 2 DROP; Start 09/16/16 at 17:00 Ceftriaxone Sodium (Rocephin) 50 ml @ 100 mls/hr Q24H IVPB Last administered on 09/22/16 17:28; Admin Dose 100 MLS/HR; Start 09/16/16 at 17:00 Fluticasone Propionate (Flonase 0.05% Nasal) 2 spray DAILY NASAL Last administered on 09/20/16 08:18; Admin Dose 2 SPRAY; Start 09/17/16 at 10:00 Salmeterol Xinafoate/ Fluticasone 1 inh 1 inh BID INH Last administered on 09/23 08:58; Admin Dose 1 INH; Start 09/18/16 at 09:41; Stop 09/24/16 at 08:59 Potassium Chloride/Dextrose/ Sod Cl (D5-1/2ns + KCl 20 Meq) 1,000 ml @ 125 mls/ hr Q8H IV Last administered on 09/23/16 05:31; Admin Dose 125 MLS/HR; Start at 11:00 Hydromorphone HCl (Dilaudid) 0.5 mg Q6H PRN IV SEVERE PAIN LEVEL 7-10 Last administered on 09/23/16 06:09; Admin Dose 0.5 MG; Start 09/22/16 at 22:30 SILVANA MCCOY Sep 23, 2016 11:30
[2016-09-23] MEDS ORDERED: CEPASTAT LOZENGE MT PRN (12:00)
[2016-09-23] MEDS ORDERED: GUAIFENESIN LA 600 MG TABSR PO PRN (12:00)
[2016-09-23] MEDS: SOD CHLORIDE 0.9% 1,000 ML IV SCH (12:39)
[2016-09-23] MEDS ORDERED: ONDANSETRON 4 MG INJ IV PRN (14:30)
[2016-09-23] MEDS: PANTOPRAZOLE (EC) 40 MG TAB PO SCH (17:59)
[2016-09-23 20:14] VITALS: BP 117/55; RESP 18
[2016-09-23] MEDS: ATORVASTATIN 20 MG TAB PO SCH (20:25)
--- NOTE | 2016-09-23 23:29 | PN ---
Date/Time of Note Date/Time of Note DATE: 09/23/16 TIME: 23:27 Assessment/Plan Lines/Catheters IV Catheter Type (from Nrs): Peripheral IV Chavez in Place (from Nrs): No Assessment/Plan Chief Complaint/Hosp Course 1. Abdominal pain with nausea, vomiting, with CT findings suggestive of possible partial bowel obstruction versus ileus. Bowel functions and tolerating fulls. -advance diet as tolerated -oob/ambulate 2. Hypothyroidism -replete hormones. 3. Obesity, status post gastric bypass. -eventual nutrition optimization -encourage exercise. 4. Gastroesophageal reflux disease history. -diet and lifestyle optimization. 5. Asthma. Continue medical management. Thank you, Problems: Subjective 24 Hr Interval Summary NGT removed and on fulls wiith min nausea but no vomiting, bloating, or worsening pain. Flatus and bms. Feels better. Pain improved. No fevers or chills. No chest pain or shortness of breath. No visual or neurologic changes. No dysuria. No abnormal discharge. Bloating improved. No headache. Exam/Review of Systems Vital Signs Vitals Vital Signs Date Time Temp Pulse Resp B/P Pulse Ox O2 Delivery O2 Flow Rate FiO2 09/23/16 20:14 98.8 84 18 117/55 96 09/21/16 15:06 Room Air Intake and Output 09/22/16 09/22/16 09/23/16 15:00 23:00 07:00 Intake Total 2650 ml 1400 ml Output Total 0 ml 0 ml Balance 0 ml 2650 ml 1400 ml Exam Free Text/Dictation GENERAL: No acute distress, comfortable, obese. HEENT: Pupils equal, reactive. No scleral icterus. Mucous membranes are moist. NECK: Supple, no crepitus, no JVD. PULMONARY: Normal respiratory effort. No wheezing. CARDIAC: S1, S2 present and irregular. ABDOMEN: Soft, ND. NT. No rebound, no guarding, not rigid. No palpable hernias. EXTREMITIES: No edema. VASCULAR: Capillary refill is 2 seconds. NEUROLOGIC: Alert, oriented, moves all 4 extremities grossly. Results Result Diagram: 09/23/1630 09/23/1630 SURY WALTERS MD Sep 23, 2016 23:29
[2016-09-24] MEDS: HYDROmorphONE 1 MG/ML SYG IV PRN ×6 (00:27→21:47)
[2016-09-24] MEDS: PANTOPRAZOLE (EC) 40 MG TAB PO SCH ×2 (05:09→17:40)
[2016-09-24] MEDS: LEVOTHYROXINE 125 MCG TAB PO SCH (05:09)
[2016-09-24 05:38] LABS: POTASSIUM 4.4 mmol/L (3.5-5.1)
[2016-09-24 05:41] LABS: CREATININE 0.55 mg/dl (0.44-1.00)
[2016-09-24 05:42] LABS: CALCIUM 8.7 mg/dl (8.4-10.2)
[2016-09-24 06:43] LABS: BASOPHILS % 0.4 % (0.0-2.0); EOSINOPHILS # 0.7 10^3/ul (0.0-0.5); EOSINOPHILS % 8.7 % (0.0-7.0); HEMATOCRIT 35.8 % (37.0-47.0); HEMOGLOBIN 12.3 g/dl (12.0-16.0); LYMPHOCYTES # 1.9 10^3/ul (0.8-2.9); LYMPHOCYTES % 24.9 % (15.0-51.0); MEAN CORPUSCULAR HEMOGLOBIN 32.3 pg (29.0-33.0); MEAN CORPUSCULAR HGB CONC 34.3 g/dl (32.0-37.0); MONOCYTE # 0.8 10^3/ul (0.3-0.9); NEUTROPHIL # 4.4 10^3/ul (1.6-7.5); PLATELET COUNT 331 10^3/UL (140-440); RED BLOOD COUNT 3.81 10^6/ul (4.20-5.40); UNCORRECTED WBC 7.8 10^3/ul (4.8-10.8); WHITE BLOOD COUNT 7.8 10^3/ul (4.8-10.8)
[2016-09-24 06:45] LABS: CONDITION 1
[2016-09-24 07:22] VITALS: BP 109/54; RESP 16
--- NOTE | 2016-09-24 08:01 | CONS ---
Date/Time of Note Date/Time of Note DATE: 09/24/16 TIME: 07:56 Consult Date/Type/Reason Admit Date/Time Sep 15, 2016 at 01:10 Type of Consultation: GI Subjective Complains of bubbling sensation on swallowing Complains of abdominal pain requiring dilaudid Able to eat and passing bm Objective Vital Signs Date Time Temp Pulse Resp B/P Pulse Ox O2 Delivery O2 Flow Rate FiO2 09/24/16 05:57 21 09/23/16 20:14 98.8 84 18 117/55 96 09/21/16 15:06 Room Air Chest : Clear to p and a Cardiac: no m, r, g Abdomen: soft, mild left sided tenderness, + bs Intake and Output 09/23/16 09/23/16 09/24/16 15:00 23:00 07:00 Intake Total 750 ml 1900 ml 1080 ml Output Total 30 ml Balance 750 ml 1870 ml 1080 ml Results/Medications Result Diagram: 09/24/16 0439 09/24/16 0439 Results 24 hrs Laboratory Tests Test 09/24/16 04:39 Anion Gap 11 Basophils # 0.0 Basophils % 0.4 Blood Urea Nitrogen 3 L Calcium Level 8.7 Carbon Dioxide Level 31 Chloride Level 102 Creatinine 0.55 Eosinophils # 0.7 H Eosinophils % 8.7 H Glucose Level 98 Hematocrit 35.8 L Hemoglobin 12.3 Lymphocytes # 1.9 Lymphocytes % 24.9 Mean Corpuscular Hemoglobin 32.3 Mean Corpuscular Hemoglobin Concent 34.3 Mean Corpuscular Volume 94.0 Mean Platelet Volume 8.0 Monocytes # 0.8 Monocytes % 10.0 Neutrophils # 4.4 Neutrophils % 56.0 Nucleated Red Blood Cells # 0.0 Nucleated Red Blood Cells % 0.0 Platelet Count 331 # Potassium Level 4.4 Red Blood Count 3.81 L Red Cell Distribution Width 14.0 Sodium Level 140 White Blood Count 7.8 # Medications Current Medications Acetaminophen (Tylenol Supp) 650 mg Q6H PRN [place] PAIN LEVEL 1-3 OR FEVER; Start 09/15/16 at 04:30 Eye Lubricant (Artificial Tears Oph) 2 drop QID BOTH EYES Last administered on 09/23/16t 20:25; Admin Dose 2 DROP; Start 09/16/16 at 17:00 Fluticasone Propionate (Flonase 0.05% Nasal) 2 spray DAILY NASAL Last administered on 09/20/16 08:18; Admin Dose 2 SPRAY; Start 09/17/16 at 10:00 Salmeterol Xinafoate/ Fluticasone (Advair 250/50 Diskus) 1 inh BID INH Last administered on 09/23/16 20:25; Admin Dose 1 INH; Start 09/18/16 at 09:41; Stop 09/24/16 at 08:59 Ondansetron HCl (Zofran Inj) 4 mg Q4H PRN IV NAUSEA AND/OR VOMITING; Start at 14:30 Hydromorphone HCl (Dilaudid) 0.5 mg Q4H PRN IV PAIN Last administered on 04:57; Admin Dose 0.5 MG; Start 09/23/16 at 12:00 Levothyroxine Sodium (Synthroid) 125 mcg DAILY@06 PO Last administered on 05:09; Admin Dose 125 MCG; Start 09/24/16 at 06:00 Pantoprazole (Protonix Tab) 40 mg BID@06,18 PO Last administered on 09/24/16 05:09; Admin Dose 40 MG; Start 09/23/16 at 18:00 Aspirin 81 mg 81 mg DAILY PO ; Start 09/24/16 at 09:00 Sodium Chloride (NS) 1,000 ml @ 50 mls/hr Q20H IV Last administered on 12:39; Admin Dose 50 MLS/HR; Start 09/23/16 at 12:00 Guaifenesin (Mucinex) 600 mg BID PRN PO congestion; Start 09/23/16 at 12:00 Phenol (Cepastat Lozenge) 1 lozenge Q1H PRN [place] sore throat; Start 09/23/16 at 12:00 Atorvastatin Calcium (Lipitor) 20 mg HS PO Last administered on 09/23/16 20:25 ; Admin Dose 20 MG; Start 09/23/16 at 21:00 Assessment/Plan Chief Complaint/Hosp Course Impression Small bowel Obstruction - likely related to prior abdominal surgery - concerned about persistent pain Complaints of Bubbling on swallowing - likely related to GERD, HH previously seen on EGD by Dr. Baron Plan: UGI/SBFT ordered to better delineate pathology related to above complaints I am concerned that persistent abdominal pain may represent partial SBO Further recommendations to follow above and clinical course Problems: KEVIN MESA MD Sep 24, 2016 08:01
[2016-09-24] MEDS: ASPIRIN (EC) 81 MG TAB PO SCH (09:03)
[2016-09-24] MEDS: FLUTICASONE 0.05% 16 GM NAS SPRAY NASAL SCH (09:03)
[2016-09-24] MEDS: ARTIFICIAL TEARS 15 ML OPH BOTH EYES SCH ×4 (09:03→21:39)
[2016-09-24] MEDS: SOD CHLORIDE 0.9% 1,000 ML IV SCH (09:04)
--- NOTE | 2016-09-24 13:06 | PN ---
Date/Time of Note Date/Time of Note DATE: 09/24/16 TIME: 13:04 Assessment/Plan Lines/Catheters IV Catheter Type (from [facility]): Peripheral IV Chavez in Place (from [facility]): No Assessment/Plan Chief Complaint/Hosp Course 1. Abdominal pain with nausea, vomiting, with CT findings suggestive of possible partial bowel obstruction versus ileus. Bowel functions and tolerating fulls. -agree with SBFT -oob/ambulate 2. Hypothyroidism -replete hormones. 3. Obesity, status post gastric bypass. -eventual nutrition optimization -encourage exercise. 4. Gastroesophageal reflux disease history. -diet and lifestyle optimization. 5. Asthma. Continue medical management. Thank you, Problems: Subjective 24 Hr Interval Summary Min nausea & vomiting this am. Abdominal pain 5/10 requiring dilaudid. Flatus and bms. No fevers or chills. No chest pain or shortness of breath. No visual or neurologic changes. No dysuria. No abnormal discharge. Bloating improved. No headache. Exam/Review of Systems Vital Signs Vitals Vital Signs Date Time Temp Pulse Resp B/P Pulse Ox O2 Delivery O2 Flow Rate FiO2 09/24/16 07:22 98.3 16 109/54 95 09/24/16 05:57 21 09/23/16 20:14 84 09/21/16 15:06 Room Air Intake and Output 09/23/16 09/23/16 09/24/16 15:00 23:00 07:00 Intake Total 750 ml 1900 ml 1080 ml Output Total 30 ml Balance 750 ml 1870 ml 1080 ml Exam Free Text/Dictation GENERAL: No acute distress, comfortable, obese. HEENT: Pupils equal, reactive. No scleral icterus. Mucous membranes are moist. NECK: Supple, no crepitus, no JVD. PULMONARY: Normal respiratory effort. No wheezing. CARDIAC: S1, S2 present and irregular. ABDOMEN: Soft, ND. Min tender. No rebound, no guarding, not rigid. No palpable hernias. EXTREMITIES: No edema. VASCULAR: Capillary refill is 2 seconds. NEUROLOGIC: Alert, oriented, moves all 4 extremities grossly. Results Result Diagram: 09/24/16 0439 09/24/16 0439 SURY WALTERS MD Sep 24, 2016 13:06
--- NOTE | 2016-09-24 13:17 | PN ---
Date/Time of Note Date/Time of Note DATE: 09/24/16 TIME: 13:11 Assessment/Plan VTE Prophylaxis VTE Prophylaxis Intervention: ambulation, SCD's Lines/Catheters IV Catheter Type (from Nrs): Peripheral IV Urinary Cath still in place: No Assessment/Plan Chief Complaint/Hosp Course 1. Abdominal pain continues ; however she seems to have a resolving SBO . She is being seen by Dr Humphreys and Dr Joshua . 2. advance diet as tolerated , UGI with SBF has been ordered by Dr Humphreys . 3. Asthma , controlled Problems: Subjective 24 Hr Interval Summary Free Text/Dictation She is overall feeling better ,with passing gas and having BM's ; however , she is still having abdominal pain . Respiratory: no complaints Cardiovascular: no complaints Gastrointestinal: flatus, pain, passing stool, vomiting Genitourinary: no complaints Musculoskeletal: no complaints Exam/Review of Systems Vital Signs Vitals Vital Signs Date Time Temp Pulse Resp B/P Pulse Ox O2 Delivery O2 Flow Rate FiO2 09/24/16 07:22 98.3 16 109/54 95 09/24/16 05:57 21 09/23/16 20:14 84 09/21/16 15:06 Room Air Intake and Output 09/23/16 09/23/16 09/24/16 15:00 23:00 07:00 Intake Total 750 ml 1900 ml 1080 ml Output Total 30 ml Balance 750 ml 1870 ml 1080 ml Exam Constitutional: alert, oriented, well developed Psych: nl mood/affect, no complaints Respiratory: clear to auscultation, normal air movement Cardiovascular: nl pulses, regular rate and rhythm Gastrointestinal: bowel sounds, soft, tender Musculoskeletal: nl extremities to inspection Results Result Diagram: 09/24/16 0439 09/24/16 0439 Results 24 hrs Laboratory Tests Test 09/24/16 04:39 Anion Gap 11 Basophils # 0.0 Basophils % 0.4 Blood Urea Nitrogen 3 L Calcium Level 8.7 Carbon Dioxide Level 31 Chloride Level 102 Creatinine 0.55 Eosinophils # 0.7 H Eosinophils % 8.7 H Glucose Level 98 Hematocrit 35.8 L Hemoglobin 12.3 Lymphocytes # 1.9 Lymphocytes % 24.9 Mean Corpuscular Hemoglobin 32.3 Mean Corpuscular Hemoglobin Concent 34.3 Mean Corpuscular Volume 94.0 Mean Platelet Volume 8.0 Monocytes # 0.8 Monocytes % 10.0 Neutrophils # 4.4 Neutrophils % 56.0 Nucleated Red Blood Cells # 0.0 Nucleated Red Blood Cells % 0.0 Platelet Count 331 # Potassium Level 4.4 Red Blood Count 3.81 L Red Cell Distribution Width 14.0 Sodium Level 140 White Blood Count 7.8 # Medications Medications Current Medications Acetaminophen (Tylenol Supp) 650 mg Q6H PRN [place] PAIN LEVEL 1-3 OR FEVER; Start 09/15/16 at 04:30 Eye Lubricant (Artificial Tears Oph) 2 drop QID BOTH EYES Last administered on 09/24/16 09:03; Admin Dose 2 DROP; Start 09/16/16 at 17:00 Fluticasone Propionate (Flonase 0.05% Nasal) 2 spray DAILY NASAL Last administered on 09/24/16 09:03; Admin Dose 2 SPRAY; Start 09/17/16 at 10:00 Ondansetron HCl (Zofran Inj) 4 mg Q4H PRN IV NAUSEA AND/OR VOMITING; Start at 14:30 Hydromorphone HCl (Dilaudid) 0.5 mg Q4H PRN IV PAIN Last administered on 09:03; Admin Dose 0.5 MG; Start 09/23/16 at 12:00 Levothyroxine Sodium (Synthroid) 125 mcg DAILY@06 PO Last administered on 05:09; Admin Dose 125 MCG; Start 09/24/16 at 06:00 Pantoprazole (Protonix Tab) 40 mg BID@06,18 PO Last administered on 09/24/16 05:09; Admin Dose 40 MG; Start 09/23/16 at 18:00 Aspirin 81 mg 81 mg DAILY PO Last administered on 09/24/16 09:03; Admin Dose 81 MG; Start 09/24/16 at 09:00 Sodium Chloride (NS) 1,000 ml @ 50 mls/hr Q20H IV Last administered on 09:04; Admin Dose 50 MLS/HR; Start 09/23/16 at 12:00 Guaifenesin (Mucinex) 600 mg BID PRN PO congestion; Start 09/23/16 at 12:00 Phenol (Cepastat Lozenge) 1 lozenge Q1H PRN [place] sore throat; Start 2/19/17 at 12:00 Atorvastatin Calcium (Lipitor) 20 mg HS PO Last administered on 09/23/16t 20:25 ; Admin Dose 20 MG; Start 09/23/16 at 21:00 ANNIE STOUT MD Sep 24, 2016 13:17
[2016-09-24 19:27] VITALS: BP 102/58; RESP 18
[2016-09-24] MEDS: ATORVASTATIN 20 MG TAB PO SCH (21:39)
[2016-09-24] MEDS: MONTELUKAST 10 MG TAB PO SCH (21:39)
[2016-09-25] MEDS: HYDROmorphONE 1 MG/ML SYG IV PRN ×6 (02:07→23:23)
[2016-09-25] MEDS: SOD CHLORIDE 0.9% 1,000 ML IV SCH ×2 (04:00→06:09)
[2016-09-25] MEDS: PANTOPRAZOLE (EC) 40 MG TAB PO SCH ×2 (06:00→17:56)
[2016-09-25] MEDS: LEVOTHYROXINE 125 MCG TAB PO SCH (06:00)
[2016-09-25 07:36] VITALS: BP 119/54; RESP 20
--- NOTE | 2016-09-25 08:03 | CONS ---
Date/Time of Note Date/Time of Note DATE: 09/25/16 TIME: 08:00 Consult Date/Type/Reason Admit Date/Time Sep 15, 2016 at 01:10 Type of Consultation: GI Subjective UGI SBFT not done yesterday Able to eat and passing bm Still complaining of abdominal pain Objective Vital Signs Date Time Temp Pulse Resp B/P Pulse Ox O2 Delivery O2 Flow Rate FiO2 09/25/16 07:36 98.7 74 20 119/54 97 09/25/16 05:24 21 09/21/16 15:06 Room Air Abdomen: soft, no distention, non tender Intake and Output 09/24/16 09/24/16 09/25/16 15:00 23:00 07:00 Intake Total 720 ml 1640 ml Balance 720 ml 1640 ml Results/Medications Result Diagram: 09/24/16 0439 09/24/16 0439 Medications Current Medications Acetaminophen (Tylenol Supp) 650 mg Q6H PRN [place] PAIN LEVEL 1-3 OR FEVER; Start 09/15/16 at 04:30 Eye Lubricant (Artificial Tears Oph) 2 drop QID BOTH EYES Last administered on 09/24/16 21:39; Admin Dose 2 DROP; Start 09/16/16 at 17:00 Fluticasone Propionate (Flonase 0.05% Nasal) 2 spray DAILY NASAL Last administered on 09/24/16 09:03; Admin Dose 2 SPRAY; Start 09/17/16 at 10:00 Ondansetron HCl (Zofran Inj) 4 mg Q4H PRN IV NAUSEA AND/OR VOMITING; Start at 14:30 Hydromorphone HCl (Dilaudid) 0.5 mg Q4H PRN IV PAIN Last administered on 06:09; Admin Dose 0.5 MG; Start 09/23/16 at 12:00 Levothyroxine Sodium (Synthroid) 125 mcg DAILY@06 PO Last administered on 05:09; Admin Dose 125 MCG; Start 09/24/16 at 06:00 Pantoprazole (Protonix Tab) 40 mg BID@06,18 PO Last administered on 09/24/16 17:40; Admin Dose 40 MG; Start 09/23/16 at 18:00 Aspirin 81 mg 81 mg DAILY PO Last administered on 09/24/16 09:03; Admin Dose 81 MG; Start 09/24/16 at 09:00 Sodium Chloride (NS) 1,000 ml @ 50 mls/hr Q20H IV Last administered on 06:09; Admin Dose 50 MLS/HR; Start 09/23/16 at 12:00 Guaifenesin (Mucinex) 600 mg BID PRN PO congestion; Start 09/23/16 at 12:00 Phenol (Cepastat Lozenge) 1 lozenge Q1H PRN [place] sore throat; Start 09/23/16 at 12:00 Atorvastatin Calcium (Lipitor) 20 mg HS PO Last administered on 09/24/16 21:39 ; Admin Dose 20 MG; Start 09/23/16 at 21:00 Montelukast Sodium (Singulair) 10 mg HS PO Last administered on 09/24/16 21:39 ; Admin Dose 10 MG; Start 09/24/16 at 21:00 Assessment/Plan Chief Complaint/Hosp Course Impression Small bowel Obstruction - likely related to prior abdominal surgery - concerned about persistent pain Complaints of Bubbling on swallowing - likely related to GERD, HH previously seen on EGD by Dr. Baron Plan: To have UGI/SBFT today to better delineate pathology related to above complaints I am concerned that persistent abdominal pain may represent partial SBO Further recommendations to follow above Problems: KEVIN MESA MD Sep 25, 2016 08:03
[2016-09-25] MEDS: ARTIFICIAL TEARS 15 ML OPH BOTH EYES SCH ×4 (08:13→21:58)
[2016-09-25] MEDS: FLUTICASONE 0.05% 16 GM NAS SPRAY NASAL SCH (08:16)
[2016-09-25] MEDS: ASPIRIN (EC) 81 MG TAB PO SCH ×2 (08:17→17:57)
--- NOTE | 2016-09-25 13:10 | PN ---
Date/Time of Note Date/Time of Note DATE: 09/25/16 TIME: 13:06 Assessment/Plan VTE Prophylaxis VTE Prophylaxis Intervention: ambulation, SCD's Lines/Catheters IV Catheter Type (from Nrsg): Peripheral IV Urinary Cath still in place: No Assessment/Plan Chief Complaint/Hosp Course 1. Abdominal pain continues ; r/o SBO . She is being seen by Dr Humphreys and Dr Joshua .will order labs in am . 2. advance diet as tolerated , UGI with SBF has been ordered by Dr Humphreys . 3. Asthma , controlled Problems: Subjective 24 Hr Interval Summary Free Text/Dictation She is still having abdominal pain . She is scheduled for an UGI with SBFT . Eyes: no complaints Respiratory: no complaints Cardiovascular: no complaints Gastrointestinal: flatus, pain, passing stool Psychological: nl mood/affect, no complaints Exam/Review of Systems Vital Signs Vitals Vital Signs Date Time Temp Pulse Resp B/P Pulse Ox O2 Delivery O2 Flow Rate FiO2 09/25/16 07:36 98.7 74 20 119/54 97 09/25/16 05:24 21 09/21/16 15:06 Room Air Intake and Output 09/24/16 09/24/16 09/25/16 15:00 23:00 07:00 Intake Total 720 ml 1640 ml Balance 720 ml 1640 ml Results Result Diagram: 09/24/16 0439 09/24/16 0439 Medications Medications Current Medications Acetaminophen (Tylenol Supp) 650 mg Q6H PRN [place] PAIN LEVEL 1-3 OR FEVER; Start 09/15/16 at 04:30 Eye Lubricant (Artificial Tears Oph) 2 drop QID BOTH EYES Last administered on 09/25/16 12:40; Admin Dose 2 DROP; Start 09/16/16 at 17:00 Fluticasone Propionate (Flonase 0.05% Nasal) 2 spray DAILY NASAL Last administered on 09/24/16 09:03; Admin Dose 2 SPRAY; Start 09/17/16 at 10:00 Ondansetron HCl (Zofran Inj) 4 mg Q4H PRN IV NAUSEA AND/OR VOMITING; Start at 14:30 Hydromorphone HCl (Dilaudid) 0.5 mg Q4H PRN IV PAIN Last administered on 10:06; Admin Dose 0.5 MG; Start 09/23/16 at 12:00 Levothyroxine Sodium (Synthroid) 125 mcg DAILY@06 PO Last administered on 05:09; Admin Dose 125 MCG; Start 09/24/16 at 06:00 Pantoprazole (Protonix Tab) 40 mg BID@06,18 PO Last administered on 09/24/16 17:40; Admin Dose 40 MG; Start 09/23/16 at 18:00 Aspirin 81 mg 81 mg DAILY PO Last administered on 09/24/16 09:03; Admin Dose 81 MG; Start 09/24/16 at 09:00 Sodium Chloride (NS) 1,000 ml @ 50 mls/hr Q20H IV Last administered on 06:09; Admin Dose 50 MLS/HR; Start 09/23/16 at 12:00 Guaifenesin (Mucinex) 600 mg BID PRN PO congestion; Start 09/23/16 at 12:00 Phenol (Cepastat Lozenge) 1 lozenge Q1H PRN [place] sore throat; Start 09/23/16 at 12:00 Atorvastatin Calcium (Lipitor) 20 mg HS PO Last administered on 09/24/16 21:39 ; Admin Dose 20 MG; Start 09/23/16 at 21:00 Montelukast Sodium (Singulair) 10 mg HS PO Last administered on 09/24/16 21:39 ; Admin Dose 10 MG; Start 09/24/16 at 21:00 ANNIE STOUT MD Sep 25, 2016 13:09
--- NOTE | 2016-09-25 16:44 | RADRPT ---
PROCEDURE: Upper GI series. CLINICAL INDICATION: Abdomen pain. TECHNIQUE: Gastrographin was administered orally and several spot and overhead radiographs were ob tained. COMPARISON: Chest and abdomen radiographs between September 17, 2016 and September 22, 2016. Small bowel follow-through on September 16, 2016. FINDINGS: There is no aspiration. The mid and distal esophagus are moderately dilated and extensive tertiary contractions are noted. The esophagus measures up to 6 cm in maximal diameter. There is narrowing of the distal esophagus a t the gastroesophageal junction level measuring approximately 1.5 cm. There is no esophageal mass or ulcer. There may be debris within the esophagus consistent with undi gested food. There is no gastroesophageal reflux. There has been prior gastric bypass surgery with only a small remnant of the stomach remaining and a nastomoses with the small bowel. Contrast rapidly passes from the gastric remnant into the small ryne wel. IMPRESSION: 1. Moderately dilated esophagus with extensive tertiary contractions. Dilated esophagus measures u p to 6 cm in diameter with narrowing of the gastroesophageal junction measuring 1.5 cm. Possible un digested food in the esophagus. 2. Prior gastric bypass with only a small remnant of stomach remaining with anastomoses to the smal l bowel. 3. What was previously thought to be a large hiatus hernia with coiling of the NG tube in the chest was due to the nasogastric tube coiling in the dilated esophagus rather than a hiatus hernia. RPTAT: QQ .Rudolph Salcedo MD, MD Date Time Electronically viewed and signed by .Rudolph Salcedo MD, on 09/25/2016 16:43 .R/
[2016-09-25 19:45] VITALS: BP 108/58; RESP 18
--- NOTE | 2016-09-25 20:08 | RADRPT ---
PROCEDURE: Small bowel follow-through. CLINICAL INDICATION: Abdomen pain. TECHNIQUE: Water-soluble contrast was administered orally and several spot and overhead radiograph s of the abdomen were obtained. COMPARISON: Abdomen radiograph dated 09/22/2016. FINDINGS: On the initial images, a small amount of contrast is present in the rectosigmoid and right side of carolyn knapp from the prior study. 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 There is no small bowel displacement or mass. The small bowel folds are normal. Previously noted dilated bowel is no longer present. Transit time is normal with contrast in the colon at 4.5 hours. Spot views of the terminal ileum are unremarkable with no mass or other abnormality. IMPRESSION: 1. Left hip total arthroplasty. 2. No evidence of obstruction. 3. Contrast in the colon at 4.5 hours. RPTAT: QQ .Rudolph Salcedo MD, Date Time Electronically viewed and signed by .Rudolph Salcedo MD, on 09/25/2016 20:08 .R/
--- NOTE | 2016-09-25 21:39 | PN ---
Date/Time of Note Date/Time of Note DATE: 09/25/16 TIME: 21:35 Assessment/Plan Lines/Catheters IV Catheter Type (from [facility]): Peripheral IV [place] in Place (from [facility]): No Assessment/Plan Chief Complaint/Hosp Course 1. Abdominal pain with nausea, vomiting, with CT findings suggestive of possible partial bowel obstruction versus ileus. Bowel functions and tolerating diet. SBFT negative. UGI noted. -diet as tolerated (small portions/bariatric) -oob/ambulate 2. Hypothyroidism -replete hormones. 3. Obesity, status post gastric bypass. -eventual nutrition optimization -encourage exercise. 4. Gastroesophageal reflux disease history. -diet and lifestyle optimization. 5. Asthma. Continue medical management. Thank you, Problems: Subjective 24 Hr Interval Summary Repeat SBFT negative for obstruction. UGI noted with dilated esophagus. No vomiting. Abdominal pain. Flatus and bms. No fevers or chills. No chest pain or shortness of breath. No visual or neurologic changes. No dysuria. No abnormal discharge. Bloating improved. No headache. Exam/Review of Systems Vital Signs Vitals Vital Signs Date Time Temp Pulse Resp B/P Pulse Ox O2 Delivery O2 Flow Rate FiO2 09/25/16 19:45 98.7 100 18 108/58 98 09/25/16 05:24 21 09/21/16 15:06 Room Air Intake and Output 09/24/16 09/24/16 09/25/16 15:00 23:00 07:00 Intake Total 720 ml 1640 ml Balance 720 ml 1640 ml Exam Free Text/Dictation GENERAL: No acute distress, comfortable, obese. HEENT: Pupils equal, reactive. No scleral icterus. Mucous membranes are moist. NECK: Supple, no crepitus, no JVD. PULMONARY: Normal respiratory effort. No wheezing. CARDIAC: S1, S2 present and irregular. ABDOMEN: Soft, ND. Min tender. No rebound, no guarding, not rigid. No palpable hernias. EXTREMITIES: No edema. VASCULAR: Capillary refill is 2 seconds. NEUROLOGIC: Alert, oriented, moves all 4 extremities grossly. Results Free Text/Dictation UGI: 1. Moderately dilated esophagus with extensive tertiary contractions. Dilated esophagus measures up to 6 cm in diameter with narrowing of the gastroesophageal junction measuring 1.5 cm. Possible undigested food in the esophagus. 2. Prior gastric bypass with only a small remnant of stomach remaining with anastomoses to the small bowel. 3. What was previously thought to be a large hiatus hernia with coiling of the NG tube in the chest was due to the nasogastric tube coiling in the dilated esophagus rather than a hiatus hernia. SBFT: 1. Left hip total arthroplasty. 2. No evidence of obstruction. 3. Contrast in the colon at 4.5 hours. Result Diagram: 09/24/16 0439 09/24/16 0439 SURY WALTERS MD Sep 25, 2016 21:39
[2016-09-25] MEDS: MONTELUKAST 10 MG TAB PO SCH (21:58)
[2016-09-25] MEDS: ATORVASTATIN 20 MG TAB PO SCH (21:58)
[2016-09-26] MEDS: HYDROmorphONE 1 MG/ML SYG IV PRN (04:48)
[2016-09-26 05:28] LABS: PROTIME 13.2 Sec (12.2-14.2)
[2016-09-26 05:29] LABS: PARTIAL THROMBOPLASTIN TIME 32.2 Sec (25.0-35.0)
[2016-09-26 05:33] LABS: BASOPHILS % 0.5 % (0.0-2.0); EOSINOPHILS # 0.5 10^3/ul (0.0-0.5); EOSINOPHILS % 5.7 % (0.0-7.0); HEMOGLOBIN 12.3 g/dl (12.0-16.0); LYMPHOCYTES # 2.1 10^3/ul (0.8-2.9); LYMPHOCYTES % 23.6 % (15.0-51.0); MEAN CORPUSCULAR HEMOGLOBIN 31.9 pg (29.0-33.0); MEAN CORPUSCULAR VOLUME 93.8 fl (82.0-101.0); MEAN PLATELET VOLUME 7.7 fl (7.4-10.4); MONOCYTE # 0.8 10^3/ul (0.3-0.9); MONOCYTES % 9.1 % (0.0-11.0); NEUTROPHIL # 5.4 10^3/ul (1.6-7.5); NEUTROPHILS % 61.1 % (39.0-77.0); PLATELET COUNT 363 10^3/UL (140-440); RED BLOOD COUNT 3.84 10^6/ul (4.20-5.40); RED CELL DISTRIBUTION WIDTH 13.7 % (11.5-14.5); UNCORRECTED WBC 8.8 10^3/ul (4.8-10.8); WHITE BLOOD COUNT 8.8 10^3/ul (4.8-10.8)
[2016-09-26 05:40] LABS: ALBUMIN/GLOBULIN RATIO 1.16; CONDITION 1
[2016-09-26 05:44] LABS: ALBUMIN 2.8 g/dl (3.3-4.9); BILIRUBIN,INDIRECT 0.7 mg/dl (0-1.1); BILIRUBIN,TOTAL 0.7 mg/dl (0.2-1.3); CALCIUM 8.4 mg/dl (8.4-10.2); CREATININE 0.61 mg/dl (0.44-1.00); TOTAL PROTEIN 5.2 g/dl (6.1-8.1)
[2016-09-26] MEDS: LEVOTHYROXINE 125 MCG TAB PO SCH (05:46)
[2016-09-26] MEDS: PANTOPRAZOLE (EC) 40 MG TAB PO SCH ×2 (05:46→17:23)
[2016-09-26 07:53] VITALS: BP 97/57; RESP 18
[2016-09-26] MEDS: ARTIFICIAL TEARS 15 ML OPH BOTH EYES SCH ×4 (08:17→20:21)
[2016-09-26] MEDS: ASPIRIN (EC) 81 MG TAB PO SCH (08:17)
[2016-09-26] MEDS: FLUTICASONE 0.05% 16 GM NAS SPRAY NASAL SCH (08:20)
[2016-09-26] MEDS: HYDROCODONE/APAP (5/325) TAB PO PRN ×3 (11:43→20:21)
[2016-09-26] MEDS: SOD CHLORIDE 0.9% 1,000 ML IV SCH ×2 (11:45→20:00)
--- NOTE | 2016-09-26 12:11 | CONS ---
Date/Time of Note Date/Time of Note DATE: 09/26/16 TIME: 12:05 Consult Date/Type/Reason Admit Date/Time Sep 15, 2016 at 01:10 Type of Consultation: GI Subjective Feels better. Getting by on po analgesia Tolerating diet and passing bm UGI shows: 1. Moderately dilated esophagus with extensive tertiary contractions. Dilated esophagus measures up to 6 cm in diameter with narrowing of the gastroesophageal junction measuring 1.5 cm. Possible undigested food in the esophagus. 2. Prior gastric bypass with only a small remnant of stomach remaining with anastomoses to the small bowel. 3. What was previously thought to be a large hiatus hernia with coiling of the NG tube in the chest was due to the nasogastric tube coiling in the dilated esophagus rather than a hiatus hernia. Had EGD in July by Dr. Baron consistent with above finding Objective Vital Signs Date Time Temp Pulse Resp B/P Pulse Ox O2 Delivery O2 Flow Rate FiO2 09/26/16 07:53 98.4 73 18 97/57 97 09/25/16 05:24 21 Abdomen: soft, non tender, + BS Intake and Output 09/25/16 09/25/16 09/26/16 15:00 23:00 07:00 Intake Total 350 ml 400 ml 1060 ml Balance 350 ml 400 ml 1060 ml Results/Medications Result Diagram: 09/26/16 0437 09/26/16 0437 Results 24 hrs Laboratory Tests Test 09/26/16 04:37 09/26/16 04:51 Alanine Aminotransferase (ALT/SGPT) 38 Albumin 2.8 L Albumin/Globulin Ratio 1.16 Alkaline Phosphatase 110 Anion Gap 13 Aspartate Amino Transf (AST/SGOT) 26 Basophils # 0.0 Basophils % 0.5 Blood Urea Nitrogen 9 Calcium Level 8.4 Carbon Dioxide Level 28 Chloride Level 104 Creatinine 0.61 Direct Bilirubin 0.00 Eosinophils # 0.5 Eosinophils % 5.7 Globulin 2.40 Glucose Level 82 Hematocrit 36.0 L Hemoglobin 12.3 Indirect Bilirubin 0.7 Lymphocytes # 2.1 Lymphocytes % 23.6 Mean Corpuscular Hemoglobin 31.9 Mean Corpuscular Hemoglobin Concent 34.0 Mean Corpuscular Volume 93.8 Mean Platelet Volume 7.7 Monocytes # 0.8 Monocytes % 9.1 Neutrophils # 5.4 Neutrophils % 61.1 Nucleated Red Blood Cells # 0.0 Nucleated Red Blood Cells % 0.0 Platelet Count 363 Potassium Level 4.0 Red Blood Count 3.84 L Red Cell Distribution Width 13.7 Sodium Level 141 Total Bilirubin 0.7 Total Protein 5.2 L White Blood Count 8.8 Activated Partial Thromboplast Time 32.2 INR International Normalized Ratio 1.00 Prothrombin Time 13.2 Prothrombin Time Ratio 1.0 Medications Current Medications Acetaminophen (Tylenol Supp) 650 mg Q6H PRN [place] PAIN LEVEL 1-3 OR FEVER; Start 09/15/16 at 04:30 Eye Lubricant (Artificial Tears Oph) 2 drop QID BOTH EYES Last administered on 09/26/16 08:17; Admin Dose 2 DROP; Start 09/16/16 at 17:00 Fluticasone Propionate (Flonase 0.05% Nasal) 2 spray DAILY NASAL Last administered on 09/24/16 09:03; Admin Dose 2 SPRAY; Start 09/17/16 at 10:00 Ondansetron HCl (Zofran Inj) 4 mg Q4H PRN IV NAUSEA AND/OR VOMITING; Start at 14:30 Hydromorphone HCl (Dilaudid) 0.5 mg Q4H PRN IV PAIN Last administered on 04:48; Admin Dose 0.5 MG; Start 09/23/16 at 12:00 Levothyroxine Sodium (Synthroid) 125 mcg DAILY@06 PO Last administered on 05:46; Admin Dose 125 MCG; Start 09/24/16 at 06:00 Pantoprazole (Protonix Tab) 40 mg BID@06,18 PO Last administered on 09/26/16 05:46; Admin Dose 40 MG; Start 09/23/16 at 18:00 Aspirin 81 mg 81 mg DAILY PO Last administered on 09/26/16 08:17; Admin Dose 81 MG; Start 09/24/16 at 09:00 Sodium Chloride (NS) 1,000 ml @ 50 mls/hr Q20H IV Last administered on 11:45; Admin Dose 50 MLS/HR; Start 09/23/16 at 12:00 Guaifenesin (Mucinex) 600 mg BID PRN PO congestion; Start 09/23/16 at 12:00 Phenol (Cepastat Lozenge) 1 lozenge Q1H PRN [place] sore throat; Start 09/23/16 at 12:00 Atorvastatin Calcium (Lipitor) 20 mg HS PO Last administered on 09/25/16 21:58 ; Admin Dose 20 MG; Start 09/23/16 at 21:00 Montelukast Sodium (Singulair) 10 mg HS PO Last administered on 09/25/16 21:58 ; Admin Dose 10 MG; Start 09/24/16 at 21:00 Acetaminophen/ Hydrocodone Bitart ([place] (5/325)) 1 tab Q4H PRN PO PAIN Last administered on 09/26/16 11:43; Admin Dose 1 TAB; Start 09/26/16 at 11:40 Assessment/Plan Chief Complaint/Hosp Course Impression Small bowel Obstruction - resolved Complaints of Bubbling on swallowing - likely related to GERD, HH previously seen on EGD by Dr. Baron Plan: Continue po analgesia prn Anticipate discharge in am by Dr. Rodas Continue ppi bid If upper symptoms persist, have told patient to contact me to arrange for outpatient EGD; otherwise will see in office as op in 1 month Problems: KEVIN MESA MD Sep 26, 2016 12:10
--- NOTE | 2016-09-26 13:15 | PN ---
Date/Time of Note Date/Time of Note DATE: 09/26/16 TIME: 13:09 Assessment/Plan VTE Prophylaxis VTE Prophylaxis Intervention: ambulation, SCD's Lines/Catheters IV Catheter Type (from Nrs): Peripheral IV Urinary Cath still in place: No Assessment/Plan Chief Complaint/Hosp Course 1. Abdominal pain continues ; SBO has resolved . She is being seen by Dr Humphreys and Dr Joshua . 2. advance diet as tolerated , UGI with SBF has been done and shows a dilated esophagus .There is no evidence of small bowel obstruction . 3. Asthma , controlled 4. if she continues to improve , will discharge tomorrow . Problems: Subjective 24 Hr Interval Summary Free Text/Dictation she is having BM's but continues to have some abdominal pain . Constitutional: improved Respiratory: no complaints Cardiovascular: no complaints Gastrointestinal: pain, passing stool Musculoskeletal: no complaints Neurologic: no complaints Exam/Review of Systems Vital Signs Vitals Vital Signs Date Time Temp Pulse Resp B/P Pulse Ox O2 Delivery O2 Flow Rate FiO2 09/26/16 07:53 98.4 73 18 97/57 97 09/25/16 05:24 21 Intake and Output 09/25/16 09/25/16 09/26/16 15:00 23:00 07:00 Intake Total 350 ml 400 ml 1060 ml Balance 350 ml 400 ml 1060 ml Exam Constitutional: alert, oriented, well developed Psych: nl mood/affect, no complaints Respiratory: clear to auscultation, normal air movement Cardiovascular: nl pulses, regular rate and rhythm Gastrointestinal: bowel sounds, soft, tender Musculoskeletal: nl extremities to inspection Results Result Diagram: 09/26/16 0437 09/26/16 0437 Results 24 hrs Laboratory Tests Test 09/26/16 04:37 09/26/16 04:51 Alanine Aminotransferase (ALT/SGPT) 38 Albumin 2.8 L Albumin/Globulin Ratio 1.16 Alkaline Phosphatase 110 Anion Gap 13 Aspartate Amino Transf (AST/SGOT) 26 Basophils # 0.0 Basophils % 0.5 Blood Urea Nitrogen 9 Calcium Level 8.4 Carbon Dioxide Level 28 Chloride Level 104 Creatinine 0.61 Direct Bilirubin 0.00 Eosinophils # 0.5 Eosinophils % 5.7 Globulin 2.40 Glucose Level 82 Hematocrit 36.0 L Hemoglobin 12.3 Indirect Bilirubin 0.7 Lymphocytes # 2.1 Lymphocytes % 23.6 Mean Corpuscular Hemoglobin 31.9 Mean Corpuscular Hemoglobin Concent 34.0 Mean Corpuscular Volume 93.8 Mean Platelet Volume 7.7 Monocytes # 0.8 Monocytes % 9.1 Neutrophils # 5.4 Neutrophils % 61.1 Nucleated Red Blood Cells # 0.0 Nucleated Red Blood Cells % 0.0 Platelet Count 363 Potassium Level 4.0 Red Blood Count 3.84 L Red Cell Distribution Width 13.7 Sodium Level 141 Total Bilirubin 0.7 Total Protein 5.2 L White Blood Count 8.8 Activated Partial Thromboplast Time 32.2 INR International Normalized Ratio 1.00 Prothrombin Time 13.2 Prothrombin Time Ratio 1.0 Medications Medications Current Medications Acetaminophen (Tylenol Supp) 650 mg Q6H PRN [place] PAIN LEVEL 1-3 OR FEVER; Start 09/15/16 at 04:30 Eye Lubricant (Artificial Tears Oph) 2 drop QID BOTH EYES Last administered on 09/26/16 08:17; Admin Dose 2 DROP; Start 09/16/16 at 17:00 Fluticasone Propionate (Flonase 0.05% Nasal) 2 spray DAILY NASAL Last administered on 09/24/16 09:03; Admin Dose 2 SPRAY; Start 09/17/16 at 10:00 Ondansetron HCl (Zofran Inj) 4 mg Q4H PRN IV NAUSEA AND/OR VOMITING; Start at 14:30 Hydromorphone HCl (Dilaudid) 0.5 mg Q4H PRN IV PAIN Last administered on 04:48; Admin Dose 0.5 MG; Start 09/23/16 at 12:00 Levothyroxine Sodium (Synthroid) 125 mcg DAILY@06 PO Last administered on 05:46; Admin Dose 125 MCG; Start 09/24/16 at 06:00 Pantoprazole (Protonix Tab) 40 mg BID@06,18 PO Last administered on 09/26/16 05:46; Admin Dose 40 MG; Start 09/23/16 at 18:00 Aspirin 81 mg 81 mg DAILY PO Last administered on 09/26/16 08:17; Admin Dose 81 MG; Start 09/24/16 at 09:00 Sodium Chloride (NS) 1,000 ml @ 50 mls/hr Q20H IV Last administered on 11:45; Admin Dose 50 MLS/HR; Start 09/23/16 at 12:00 Guaifenesin (Mucinex) 600 mg BID PRN PO congestion; Start 09/23/16 at 12:00 Phenol (Cepastat Lozenge) 1 lozenge Q1H PRN [place] sore throat; Start 09/23/16 at 12:00 Atorvastatin Calcium (Lipitor) 20 mg HS PO Last administered on 09/25/16 21:58 ; Admin Dose 20 MG; Start 09/23/16 at 21:00 Montelukast Sodium (Singulair) 10 mg HS PO Last administered on 09/25/16 21:58 ; Admin Dose 10 MG; Start 09/24/16 at 21:00 Acetaminophen/ Hydrocodone Bitart ([place] (5/325)) 1 tab Q4H PRN PO PAIN Last administered on 09/26/16 11:43; Admin Dose 1 TAB; Start 09/26/16 at 11:40 ANNIE STOUT MD Sep 26, 2016 13:15
[2016-09-26 19:53] VITALS: BP 108/56; RESP 18
[2016-09-26] MEDS: ATORVASTATIN 20 MG TAB PO SCH (20:21)
[2016-09-26] MEDS: MONTELUKAST 10 MG TAB PO SCH (20:21)
--- NOTE | 2016-09-26 23:26 | PN ---
Date/Time of Note Date/Time of Note DATE: 09/26/16 TIME: 23:24 Assessment/Plan Lines/Catheters IV Catheter Type (from [facility]): Peripheral IV Chavez in Place (from [facility]): No Assessment/Plan Chief Complaint/Hosp Course 1. Abdominal pain with nausea, vomiting, with CT findings suggestive of possible partial bowel obstruction versus ileus. Bowel functions and tolerating diet. SBFT negative. UGI noted. -diet as tolerated (small portions/bariatric) -oob/ambulate 2. Hypothyroidism -replete hormones. 3. Obesity, status post gastric bypass. -eventual nutrition optimization -encourage exercise. 4. Gastroesophageal reflux disease history. -diet and lifestyle optimization. 5. Asthma. Continue medical management. Thank you, Problems: Subjective 24 Hr Interval Summary No vomiting. Abdominal pain improved 09/14. Flatus and bms. No fevers or chills. No chest pain or shortness of breath. No visual or neurologic changes. No dysuria. No abnormal discharge. Bloating improved. No headache. Exam/Review of Systems Vital Signs Vitals Vital Signs Date Time Temp Pulse Resp B/P Pulse Ox O2 Delivery O2 Flow Rate FiO2 09/26/16 19:53 98.2 79 18 108/56 100 09/25/16 05:24 21 Intake and Output 09/25/16 09/25/16 09/26/16 15:00 23:00 07:00 Intake Total 350 ml 400 ml 1060 ml Balance 350 ml 400 ml 1060 ml Exam Free Text/Dictation GENERAL: No acute distress, comfortable, obese. HEENT: Pupils equal, reactive. No scleral icterus. Mucous membranes are moist. NECK: Supple, no crepitus, no JVD. PULMONARY: Normal respiratory effort. No wheezing. CARDIAC: S1, S2 present and irregular. ABDOMEN: Soft, ND. Min tender. No rebound, no guarding, not rigid. No palpable hernias. EXTREMITIES: No edema. VASCULAR: Capillary refill is 2 seconds. NEUROLOGIC: Alert, oriented, moves all 4 extremities grossly. Results Result Diagram: 09/26/16 0437 09/26/16 043 SURY WALTERS MD Sep 26, 2016 23:26
[2016-09-27] MEDS: HYDROCODONE/APAP (5/325) TAB PO PRN ×3 (01:51→10:18)
[2016-09-27] MEDS: LEVOTHYROXINE 125 MCG TAB PO SCH (05:48)
[2016-09-27] MEDS: PANTOPRAZOLE (EC) 40 MG TAB PO SCH (05:48)
[2016-09-27 07:59] VITALS: BP 126/59; RESP 18
[2016-09-27] MEDS: ASPIRIN (EC) 81 MG TAB PO SCH (08:51)
[2016-09-27] MEDS: SOD CHLORIDE 0.9% 1,000 ML IV SCH (08:51)
[2016-09-27] MEDS: ARTIFICIAL TEARS 15 ML OPH BOTH EYES SCH (08:54)
[2016-09-27] MEDS: FLUTICASONE 0.05% 16 GM NAS SPRAY NASAL SCH (08:55)
--- NOTE | 2016-09-27 10:16 | PDOCDIS ---
Discharge Instructions CONDITION Patient Condition: Good HOME CARE INSTRUCTIONS: Diet Instructions: Regular ACTIVITY: Activity Restrictions: Slowly Increase Activity Rest between Activity Avoid heavy lifting Weight Bearing Bathing Restrictions: ANNIE Oneil MD Sep 27, 2016 10:16
--- NOTE | 2016-09-27 13:13 | DS ---
DATE OF ADMISSION: 09/15/2016 DATE OF DISCHARGE: 09/27/2016 HISTORY OF PRESENT ILLNESS AND HOSPITAL COURSE: This 71-year-old female was admitted on 09/14/2016 because of abdominal pain and difficulty urinating. She was admitted through the emergency room. Shiela genao pain was diffuse, severe cramping, mostly in the epigastrium. It then became more a diffuse type of pain. She was vomiting. The patient has a long history of gastroesophageal reflux disease. jair did have a left inguinal hernia repair about [address] Joshua. The patient was seen by Dr. Joshua, a general surgeon, and Dr. Charles Humphreys, a bait tier. She was found to have a small-bowel obstruction on CAT scan. She was placed on IV fluids and had a NG tube placed. She s lowly improved over the next week. She did have an upper GI with small bowel follow-through done 2 days ago. This did not show any evidence of obstruction. She has been having bowel movements and is overall feeling better; however, she continues to have some intermittent abdominal pain. The upper GI done 2 days ago did show a moderately dilated esophagus, with extensive tertiary contractions. The dilated esophagus measured up to 6 cm in diameter, with narrowing of the gastroesophageal juncti on, measuring 1.5 cm. The patient has had a previous gastric bypass. It is not clear what caused shiela genao partial small-bowel obstruction. There is some question that this was due to adhesions and/or so me twisted bowel. The patient does not have any bowel obstruction at this time. The patient is in good condition and will be discharged home today. She has been up walking without assistance. DISCHARGE MEDICATIONS: Include the followin. [place] 5/325 q.6h. p.r.n. pain. 2. Accolate 20 mg twice a day. 3. Levothyroxine 125 mcg a day. 4. Atorvastatin 20 mg a day. 5. Omeprazole 40 mg twice a day. 6. Advair 250/50, one puff twice a day. 7. Albuterol p.r.n. 8. Fluticasone 2 sprays in each nostril once a day. 9. Eyes lubricants daily. 10. Tylenol p.r.n. pain. The patient will follow up with Dr. Charles Humphreys and probably have an upper GI endoscopy by him. Th e patient will also follow up with Dr. Joshua. The patient was told to see me in about 2 weeks. DISCHARGE DIAGNOSES: 1. Partial small-bowel obstruction, now resolved without surgery. 2. Dilated esophagus. 3. Asthma. 4. Hypothyroidism. Dictated By: ANNIE STOUT MD, ND/NTS Conf#: [id number] DID#: [id number]
[2016-09-27 23:05] LABS: ALBUMIN 2.7 g/dL (3.8-4.8)
== END 2016-09-27 11:39 | disposition home or self-care (01) | DRG 390 ==
LOC: E/R 21:04 → PP2 09-15 01:10
PROVIDERS: ADMIT Internal Medicine; ATTEND Internal Medicine
DX: K56.5 Intestinal adhesions [bands] with obstruction (postinfection) (principal); E87.5 Hyperkalemia; K21.9 Gastro-esophageal reflux disease without esophagitis; K44.9 Diaphragmatic hernia without obstruction or gangrene; Z98.84 Bariatric surgery status; E03.9 Hypothyroidism, unspecified; E66.9 Obesity, unspecified; Z68.33 Body mass index [BMI] 33.0-33.9, adult; R11.2 Nausea with vomiting, unspecified; J45.909 Unspecified asthma, uncomplicated; K22.8 Other specified diseases of esophagus
CPT/HCPCS: 36415; 71010; 74000; 74010; 74176; 74240; 74250; 80048; 80053; 81001; 81003; 83690; 83735; 84100; 84155; 84165; 84443; 84484; 85025; 85610; 85730; 87040; 87086; 93005; 96374; 96375; C9113; J0696; J1170; J2270; J2405; J3480; J7030; J7042; P9612; Q9967

== ENCOUNTER → 2016-10-03 | Outpatient (CLI) | payer MEDICARE, BC ==
[~2016-10-03] MED LIST changes: -ALEN70TA15 PO; +BARIUM SULF 2% 450 ML BTL (BERRY SMOOTHIE) PO ONE; -GUAI600T21 PO
--- NOTE | 2016-10-04 12:54 | RADRPT ---
PROCEDURE: CT Abdomen and Pelvis without contrast. CLINICAL INDICATION: Abdominal swelling. Recent recovery from small bowel obstruction. TECHNIQUE: Multiple contiguous axial CT images of the abdomen and pelvis were obtained without the administration of intravenous contrast. Oral contrast was administered. Coronal and sagittal recons tructions were also performed. CTDIvol (mGy): 14.29; Total Exam DLP (mGy-cm): 821.33. One or more of the following dose reduction techniques were utilized: - Automated exposure control. - Adjustment of the mA and/or kV according to patient size. - Use of iterative reconstruction technique. COMPARISON: Small bowel follow-through 09/25/2016. CT abdomen/pelvis 09/14/2016. FINDINGS: Limited imaging of the lower thorax demonstrate scattered mild scarring versus atelectasis. The liver and spleen are homogeneous in density. Cholelithiasis is present. The pancreas and adren al glands are unremarkable. The kidneys are symmetric in size. There are no nephroureteral stones. There is no hydronephrosis o r abnormal perinephric inflammation. The abdominal aorta is normal in caliber. Atherosclerotic calcification is present. There is no per iaortic / retroperitoneal lymphadenopathy. Bariatric surgical changes are present. Contrast is seen throughout the small and large intestines. Mild fluid-filled distension of scattered loops within the mid and left side of the abdomen are pr esent and grossly unchanged. Mild focal narrowing of segment of small intestines within the midport ion of the abdomen is present. Fecalization within a mildly dilated loop of intestines proximal to this transition is observed. Mild edema of the involved mesentery is present. Collapsed abdominal me sh is seen adjacent to the loops of intestines. A small recurrent fat containing periumbilical emily ia is present and unchanged. Diverticulosis is present. The appendix is normal. There is no free i ntra-abdominal air or fluid. The bladder, uterus and adnexa are unremarkable. There is no free pelvic fluid. There is no pelvic sidewall or inguinal lymphadenopathy. Degenerative changes of the spine and right hip are present. Left hip arthroplasty hardware is in p lace. IMPRESSION: No evidence of complete small bowel obstruction. However, there is persistent focal narrowing of a s hort segment of small intestines within the midportion of the abdomen with associated mild proximal small bowel dilatation and fecalization suggesting a low grade partial small bowel obstruction. Giv en the presence of adjacent collapsed mesh, imaging findings are likely a result of an adhesion. Small fat-containing periumbilical hernia. Diverticulosis. No evidence of acute diverticulitis. Cholelithiasis. RPTAT: HLST .Janette Villarreal MD, Date Time Electronically viewed and signed by .Janette Villarreal MD, on 10/04/2016 12:53 .T/
== END | disposition home or self-care (01) ==
LOC: C/S 11:17
PROVIDERS: ATTEND Internal Medicine
DX: R10.9 Unspecified abdominal pain (principal); K57.90 Diverticulosis of intestine, part unspecified, without perforation or abscess without bleeding; K80.20 Calculus of gallbladder without cholecystitis without obstruction
CPT/HCPCS: 74176

== ENCOUNTER 2016-11-09 05:45 | Inpatient (IN) | payer MEDICARE, BC ==
--- NOTE | 2016-11-06 19:40 | PREOPHP ---
DATE OF ADMISSION: 11/09/2016 This patient is being admitted electively on 11/09/[address] Kevon Joshua. HISTORY OF PRESENT ILLNESS: This 71-year-old female is being admitted now to undergo a laparoscopic abdominal surgery to examine her abdomen and peritoneum. The patient has a history of a small-titi l obstruction that started in mid 09/2016. Since that time, her abdominal pain has decreased in int ensity; however, she continues to have left upper quadrant abdominal pain and bulging. The patient has been followed by Dr. Kevon Joshua, a general surgeon, and is being admitted now by him for a l aparoscopic surgical evaluation to try and determine the cause of this small-bowel obstruction and c ontinued abdominal pain. The patient has also been followed by Dr. Charles Humphreys, a local gastroente rologist. Dr. Humphreys did perform an upper GI endoscopy on her on 10/10/2016 at an outpatient surgery center. She was found to have a dilated esophagus with a narrowing of her lower esophageal sphincte r. The patient does have a history of a gastric bypass surgery years ago. The patient has discusse d her surgery with Dr. Joshua. He is going to do a laparoscopic and/or open exploration of the abd omen to try and determine the reason for her pain and small-bowel obstruction. CURRENT MEDICATIONS: Include the followin. Tylenol p.r.n. pain. 2. Vitamin D3 1000 units a day. 3. Furosemide 20 mg a day p.r.n. leg swelling. 4. Senna 1 tablet daily. 5. Omeprazole 40 mg twice a day. 6. Fosamax 70 mg once every 2 weeks. 7. Advair Diskus 250/50 one puff twice a day. 8. Accolate 20 mg twice a day. 9. Lovastatin 10 mg a day. 10. Levothyroxine 125 mcg a day. PAST MEDICAL HISTORY: Remarkable for gastric bypass surgery, hypothyroidism, asthma, rosacea, incre ased eye pressure, hay fever, gastroesophageal reflux disease, left inguinal hernia, small-bowel obs truction, osteoporosis. ALLERGIES: SHE IS ALLERGIC TO SULFA DRUGS. SURGICAL HISTORY: Gastric bypass surgery in 2004, plastic surgery to remove excess skin from the ab domen, tonsillectomy, left inguinal hernia repair 06/15/2016. FAMILY HISTORY: The patient was adopted, and her past medical family history is unknown. SOCIAL HISTORY: The patient does not smoke. She does not use recreational drugs. She does not dri nk alcohol. 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 REVIEW OF SYSTEMS: CONSTITUTIONAL: No chills, no weight gain, no loss of appetite, no fever, no weakness. She has had some weight loss. No fatigue. OPHTHALMOLOGIC: Negative. EARS, NOSE AND THROAT: Negative. CARDIORESPIRATORY: She denies any exertional chest pain, chest pressure, cough. She does have inte rmittent ankle swelling. GASTROINTESTINAL: She does have left upper quadrant abdominal pain and fullness. She has had const ipation. NEUROLOGIC: Negative. UROLOGIC: Negative. PHYSICAL EXAMINATION: GENERAL: At this time reveals a well-developed female. No apparent distress. VITAL SIGNS: Temperature 98.1, blood pressure 118/80, heart rate 72. HEAD: Normocephalic. EYES: Extraocular muscles intact. NOSE AND MOUTH: Normal. NECK: Supple. No neck vein distention. LUNGS: Clear to auscultation. HEART: Regular rhythm. No murmurs, gallops or rubs. ABDOMEN: Soft. There is some fullness in the left upper quadrant and in the mid abdomen. She is t ginger in the left upper quadrant. There is no rebound. EXTREMITIES: Pedal pulses were 2+ bilaterally. No edema. IMPRESSION: This patient has had abdominal pain mostly in the left upper quadrant for at least 6 we eks. At that time, she was admitted to the hospital and diagnosed with a small-bowel obstruction. She was in the hospital for at least 10 days. The small-bowel obstruction seemed to have resolved; however, she continues to have abdominal pain. She has also had constipation. The patient has prev iously had a gastric bypass surgery and more recently a left inguinal hernia repair. Dr. Joshua is going to perform either a laparoscopic or open abdominal exploration to try and determine why the p atient continues to have abdominal pain. I will follow the patient along with you. The patient is cleared for surgery. Dictated By: ANNIE STOUT MD, ND/GINA Conf#: [id number] DID#: [id number]
[2016-11-08 10:00] VITALS: BMI 32.3
[~2016-11-09] VITALS: Ht 156.2 cm; Wt 76.2 kg
[2016-11-09] VITALS (29 sets, daily range): BP systolic 96–140; BP diastolic 53–77; PULSE 56–90; RESP 10–21; Ht 156.2 cm; Wt 76.2 kg
[~2016-11-09 05:45] MED LIST changes: -BARIUM SULF 2% 450 ML BTL (BERRY SMOOTHIE) PO ONE
[2016-11-09] MEDS ORDERED: LACTATED RINGER'S 1,000 ML IV* SCH (06:37)
[2016-11-09] MEDS ORDERED: CEFAZOLIN 2 GM/50 ML (PMX) 50 ML IVPB ONE (07:00)
[2016-11-09] MEDS ORDERED: CEFAZOLIN 1 GM INJ ONE (07:00)
[2016-11-09] MEDS ORDERED: SUCCINYLCHOLINE CHLORIDE 100 MG/5 ML SYG IV ONE (08:02)
[2016-11-09] MEDS ORDERED: ROCURONIUM 50 MG INJ ONE (08:02)
[2016-11-09] MEDS ORDERED: PROPOFOL 20 ML ONE (08:02)
[2016-11-09] MEDS ORDERED: ONDANSETRON 4 MG INJ ONE (08:03)
[2016-11-09] MEDS ORDERED: DEXAMETHASONE 4 MG/ML 1 ML INJ ONE (08:03)
[2016-11-09] MEDS ORDERED: MIDAZOLAM 1 MG/ML 2 ML INJ ONE (08:03)
--- NOTE | 2016-11-09 08:41 | HPN ---
Date/Time of Note Date/Time of Note DATE: 11/09/16 TIME: 08:41 Interval H&P Admission Note Pt. seen H&P reviewed: No system changes SURY WALTERS MD Nov 09, 2016 08:41
[2016-11-09] MEDS ORDERED: BUPIVACAINE 0.5% (SDV) 30 ML INJ ONE (09:02)
[2016-11-09] MEDS ORDERED: LIDOCAINE 1%/EPI 30 ML INJ ONE (09:02)
[2016-11-09] MEDS ORDERED: BUPIVACAINE 0.5% 30 ML VIAL INJ ONE (09:15)
[2016-11-09] MEDS ORDERED: LIDOCAINE 1%/EPI 30 ML INJ INJ ONE (09:15)
[2016-11-09] MEDS ORDERED: KETOROLAC 30 MG INJ ONE (11:02)
[2016-11-09] MEDS ORDERED: NEOSTIGMINE 3 MG/3 ML SYRINGE ONE (11:05)
[2016-11-09] MEDS ORDERED: GLYCOPYRROLATE 0.4 MG INJ ONE (11:05)
[2016-11-09] MEDS ORDERED: LIDOCAINE 2% JELLY 5 ML ONE (11:16)
--- NOTE | 2016-11-09 11:31 | OPR ---
Date/Time of Note Date/Time of Note DATE: 11/09/16 TIME: 11:29 Operative Report Procedure Date: Nov 09, 2016 Preoperative Diagnosis 1. Chronic abdominal pain with partial bowel obstruction, chronic 2. BMI 31 Postoperative Diagnosis 1. Chronic abdominal pain with partial small bowel obstruction secondary to adhesions of small bowel to each other and to ventral hernia mesh 2. BMI 31 3. Hiatal hernia 4. History of gastric bypass Operation Performed 1. Laparoscopic abdominal exploration and extensive lysis of adhesions 2. Laparoscopic explantation of ventral hernia mesh and re-repair of ventral hernia with biologic mesh (ACell, 10x15, 3 layer) 3. Local anesthetic injection 4. Laparoscopic guided bilateral transversus abdominis plane block Surgeon: SURY WALTERS MD Anesthesia: general (Plus local plus regional) Anesthesiologist: JANETH PUENTE M.D. Estimated Blood Loss: 0 - 10 ml's Specimens 1. Explanted mesh 2. Adhesion scars Tubes/Drains ACell, [id number] bioloic, 3 layer Complications: None Pt Condition Post Procedure: stable Disposition: PACU Indications 71-year-old female with history of ventral and left inguinal hernia status post laparoscopic repair in June 2016. She has persistent chronic pain with possible partial bowel obstruction. She is here for abdominal exploration. She also has history of abdominoplasty laparoscopic gastric bypass and hiatal hernia. Risks include but are not limited to bleeding, infection, abscess, seroma, leak , damage to intestines or any intra-abdominal/intrapelvic structures, hernia formation, chronic pain, need for re-operations or further surgeries, [place], stroke , PE, DVT, pneumonia, organ failures, or even . Procedure Description Patient was brought and placed supine on the operating table. SCDs were placed. All pressure points were well-padded. After induction of anesthesia both arms were tucked and Chavez placed. Preoperative antibiotics administered. She was prepped and draped in usual sterile fashion and timeout was performed. Local anesthetic injected at all surgical sites. Incision was made in the right upper quadrant and using an Optiview port and a 5 mm 0 scope abdomen was entered and insufflated to 15 mmHg CO2. Laparoscopy was performed. No injuries were identified. There was no bowel distention. Immediately I identified a ball of small bowel adherent to the ventral hernia mesh which was partially from the previous secure strap tacks to the abdominal wall. Under direct visualization to other fives and it will replaced and right abdomen. Laparoscopic guided bilateral transversus abdominis plane block was performed to optimize pain control interim postoperatively. Using blunt dissection and sharp dissection very meticulously I was able to separate the small bowel from the ventral hernia mesh. I was also able to separate the small bowel from itself and also from the left colon. There is diverticulosis in the colon. A ball of scar tissue was fully excised and sent to pathology as specimen. Decision was made to remove the mesh that has caused so much inflammation. Using scissor and electrocautery I was able to separate the mass from the abdominal wall and send it as specimen as well. The small ventral hernia had already been repaired with primary closure in the last operation. To reinforce that 10 x 15 cm biologic xenograft tissue was applied to the abdominal wall secured with secure strap tacker circumferentially. The bowel was ran from the Tiana limb all the way to the terminal ileum and cecum without any further twisting adhesions scarring or sites of possible obstruction identified. The bowel was placed in normal fashion. The omentum off of the transverse colon was pulled over the bowel to protect it. 12 m port site fascia was closed with Endo Close and 0 Vicryl in a [id number] manner. There was complete hemostasis. No other issues were identified. I did confirm hiatal hernia. At this point ports and CO2 were removed under direct visualization wounds were thoroughly irrigated and skin was closed with 4 -0 Monocryl in subcuticular fashion and Dermabond was applied. Patient was extubated. Chavez was removed. Patient was taken back to recovery room in stable condition and all counts were correct at the end of the operation 2. Copies To: CC: KEVIN MESA MD; ANNIE STOUT MD, SAMUEL MD Nov 09, 2016 11:31
[2016-11-09] MEDS ORDERED: DIPHENHYDRAMINE 50 MG INJ IV PRN (12:00)
[2016-11-09] MEDS ORDERED: HYDROmorphONE (0.2 MG/ML) 10ML SYG IV PRN ×3 (12:00)
[2016-11-09] MEDS ORDERED: ONDANSETRON 4 MG INJ IV PRN ×2 (12:00)
[2016-11-09] MEDS ORDERED: MEPERIDINE 25 MG INJ IV PRN (12:00)
[2016-11-09] MEDS ORDERED: EPHEDrine SULFATE 50 MG/5 ML SYG IV PRN (12:00)
[2016-11-09] MEDS ORDERED: HYDROmorphONE 1 MG/ML SYG IV PRN (12:00)
[2016-11-09] MEDS: D5W-0.45 NACL + KCL 20 MEQ 1,000 ML IV SCH (13:09)
[2016-11-09] MEDS: HYDROCODONE/APAP (5/325) TAB PO PRN ×3 (13:19→23:12)
[2016-11-09] MEDS: PANTOPRAZOLE (EC) 40 MG TAB PO SCH (17:58)
[2016-11-09] MEDS ORDERED: ARTIFICIAL TEARS 15 ML OPH BOTH EYES PRN ×2 (18:30)
[2016-11-09] MEDS: ATORVASTATIN 10 MG TAB PO SCH (20:58)
[2016-11-09] MEDS: SALMETEROL/FLUTICASONE 250/50 INHA INH SCH (20:58)
[2016-11-09] MEDS ORDERED: LACTULOSE 30ML CUP PO SCH (21:00)
[2016-11-09] MEDS ORDERED: VITAMIN A & D 5 GM OINT PACKET TOP ONE (21:08)
[2016-11-10] MEDS: D5W-0.45 NACL + KCL 20 MEQ 1,000 ML IV SCH ×2 (01:05→03:21)
[2016-11-10] MEDS: HYDROCODONE/APAP (5/325) TAB PO PRN ×5 (03:25→20:25)
[2016-11-10 05:35] LABS: ADD SCAN DIFF NO; BASOPHILS % 0.2 % (0.0-2.0); EOSINOPHILS # 0.1 10^3/ul (0.0-0.5); EOSINOPHILS % 1.6 % (0.0-7.0); HEMATOCRIT 33.3 % (37.0-47.0); HEMOGLOBIN 10.5 g/dl (12.0-16.0); LYMPHOCYTES # 1.5 10^3/ul (0.8-2.9); LYMPHOCYTES % 17.7 % (15.0-51.0); MEAN CORPUSCULAR HGB CONC 31.5 g/dl (32.0-37.0); MEAN CORPUSCULAR VOLUME 98.2 fl (82.0-101.0); MEAN PLATELET VOLUME 10.1 fl (7.4-10.4); MONOCYTE # 0.7 10^3/ul (0.3-0.9); MONOCYTES % 8.4 % (0.0-11.0); NEUTROPHIL # 5.9 10^3/ul (1.6-7.5); NEUTROPHILS % 71.9 % (39.0-77.0); PLATELET COUNT 255 10^3/UL (140-415); RED BLOOD COUNT 3.39 10^6/ul (4.20-5.40); RED CELL DISTRIBUTION WIDTH 13.2 % (11.5-14.5); WHITE BLOOD COUNT 8.2 10^3/ul (4.8-10.8)
[2016-11-10 05:58] LABS: ALBUMIN/GLOBULIN RATIO 1.2; BILIRUBIN,INDIRECT 0.5 mg/dl (0-1.1); BILIRUBIN,TOTAL 0.5 mg/dl (0.2-1.3); CALCIUM 8.2 mg/dl (8.4-10.2); CREATININE 0.5 mg/dl (0.44-1.00); POTASSIUM 4.8 mmol/L (3.5-5.1); TOTAL PROTEIN 5.5 g/dl (6.1-8.1)
[2016-11-10] MEDS ORDERED: PANTOPRAZOLE (EC) 40 MG TAB PO SCH (06:00)
[2016-11-10] MEDS: LEVOTHYROXINE 125 MCG TAB PO SCH (06:21)
[2016-11-10] MEDS: PANTOPRAZOLE (EC) 40 MG TAB PO SCH ×2 (06:21→19:00)
[2016-11-10] MEDS: ENOXAPARIN 40 MG/0.4 ML SYG SC SCH (06:33)
[2016-11-10 07:00] VITALS: BP 94/50; RESP 20
[2016-11-10] MEDS: SALMETEROL/FLUTICASONE 250/50 INHA INH SCH ×2 (08:18→20:25)
--- NOTE | 2016-11-10 11:29 | PN ---
Date/Time of Note Date/Time of Note DATE: 11/10/16 TIME: 11:21 Assessment/Plan VTE Prophylaxis VTE Prophylaxis Intervention: LMWH, SCD's Lines/Catheters IV Catheter Type (from Nrs): [place] [facility] Urinary Cath still in place: No Assessment/Plan Chief Complaint/Hosp Course 71 y/o female pmh hypothyroidism, asthma, GERD, osteoporosis, prior SBO who was admitted 11/09/2016 for exploratory lap as workup for abdominal pain and lysis of adhesions. Problems: Assessment/Plan GI #abd pain/h/o SBO-s/p laparoscopic lysis of adhesions -judicious pain management. -will differ diet and dispo to surgery #GERD -protonix Endo #hypothyroid -synthroid Pulm #asthma -advair CV #HLD -atorva 10 Dispo: per surgery Subjective 24 Hr Interval Summary Free Text/Dictation Patient has abdominal pain this morning but believes it is currently adequately controlled. Has not yet passed gas but can appreciate "rumbling" in her abdominal area. Has walked with PT. No BM yet. Endorses thirst. Moistening mouth with sponges. Denies fevers, chills, chest pain, sob, cough. Denies nausea /vomiting. Endorses chronic swelling and sensitivity in legs. Exam/Review of Systems Vital Signs Vitals Vital Signs Date Time Temp Pulse Resp B/P Pulse Ox O2 Delivery O2 Flow Rate FiO2 11/10/16 07:00 98.0 77 20 94/50 96 11/09/16 18:00 Nasal Cannula 2.0 Intake and Output 11/09/16 11/09/16 11/10/16 15:00 23:00 07:00 Intake Total 450 ml 300 ml 880 ml Output Total 205 ml 650 ml Balance 245 ml 300 ml 230 ml Exam GEN-NAD, alert and oriented x 4 HEENT- dry mucus membranes, OP clear, no scleral icterus CV-RRR, nml s1/s2, no m/r/g Pulm-CTAB, no w/r/r abd-tender to moderate palpation but no rebound or guarding. Very minimal bowel sounds. Ext-trace to 1+ bilateral lower extremity edema extending to distal 3rds Results Result Diagram: 11/10/16 0417 11/10/16 0417 Results 24 hrs Laboratory Tests Test 11/10/16 04:17 White Blood Count 8.2 Red Blood Count 3.39 L Hemoglobin 10.5 L Hematocrit 33.3 L Mean Corpuscular Volume 98.2 Mean Corpuscular Hemoglobin 31.0 Mean Corpuscular Hemoglobin Concent 31.5 L Red Cell Distribution Width 13.2 Platelet Count 255 Mean Platelet Volume 10.1 # Neutrophils % 71.9 Lymphocytes % 17.7 Monocytes % 8.4 Eosinophils % 1.6 Basophils % 0.2 Nucleated Red Blood Cells % 0.0 Neutrophils # 5.9 Lymphocytes # 1.5 Monocytes # 0.7 Eosinophils # 0.1 Basophils # 0.0 Nucleated Red Blood Cells # 0.0 Sodium Level 135 Potassium Level 4.8 Chloride Level 107 Carbon Dioxide Level 26 Anion Gap 7 L Blood Urea Nitrogen 10 Creatinine 0.50 Glucose Level 121 Calcium Level 8.2 L Total Bilirubin 0.5 Direct Bilirubin 0.00 Indirect Bilirubin 0.5 Aspartate Amino Transf (AST/SGOT) 30 Alanine Aminotransferase (ALT/SGPT) 28 Alkaline Phosphatase 55 Total Protein 5.5 L Albumin 3.0 L Globulin 2.50 Albumin/Globulin Ratio 1.20 Medications Medications Current Medications Ondansetron HCl 4 mg 4 mg Q6H PRN IV NAUSEA AND/OR VOMITING; Start 11/09/16 at 12:00 Potassium Chloride/Dextrose/ Sod Cl (D5-1/2ns + KCl 20 Meq) 1,000 ml @ 75 mls/ hr [id number] IV Last administered on 11/10/16 03:21; Admin Dose 75 MLS/HR; Start 11/09/16 at 11:45; Status Future Hold Enoxaparin Sodium (Lovenox) 40 mg DAILY@07 SC Last administered on 11/10/16 06: 33; Admin Dose 40 MG; Start 11/10/16 at 07:00 Acetaminophen/ Hydrocodone Bitart ([place] (5/325)) 2 tab Q4H PRN PO Pain 6-10 Last administered on 11/10/16 07:31; Admin Dose 2 TAB; Start 11/09/16 at 12:00 Acetaminophen/ Hydrocodone Bitart ([place] (5/325)) 1 tab Q4H PRN PO Pain 1-5 Last administered on 11/10/16 03:25; Admin Dose 1 TAB; Start 11/09/16 at 12:00 Hydromorphone HCl (Dilaudid) 0.5 mg Q2H PRN IV Breakthrough PAIN; Start at 12:00 Salmeterol Xinafoate/ Fluticasone (Advair 250/50 Diskus) 1 inh BID INH Last administered on 11/10/16 08:18; Admin Dose 1 INH; Start 11/09/16 at 21:00 Levothyroxine Sodium (Synthroid) 125 mcg DAILY@06 PO Last administered on 06:21; Admin Dose 125 MCG; Start 11/10/16 at 06:00 Atorvastatin Calcium (Lipitor) 10 mg DAILY@21 PO Last administered on 11/09/16 20:58; Admin Dose 10 MG; Start 11/09/16 at 21:00 Pantoprazole (Protonix Tab) 40 mg BID@06,18 PO Last administered on 11/10/16 06 :21; Admin Dose 40 MG; Start 11/09/16 at 18:00 Eye Lubricant 2 drop 2 drop QID PRN BOTH EYES DRY EYES Last administered on 11/09 23:14; Admin Dose 2 DROP; Start 11/09/16 at 18:30 Lactated Ringer's (Lr) 1,000 ml @ 100 mls/hr Q10H IV ; Start 11/10/16 at 11:30; Stop 11/11/16 at 10:29 CHASIDY QURESHI MD Nov 10, 2016 11:29
[2016-11-10] MEDS: LACTATED RINGER'S 1,000 ML IV SCH ×2 (11:31→20:29)
[2016-11-10 19:58] VITALS: BP 127/58; RESP 20
[2016-11-10] MEDS: ATORVASTATIN 10 MG TAB PO SCH (20:25)
[2016-11-11] MEDS: HYDROCODONE/APAP (5/325) TAB PO PRN ×6 (00:29→20:39)
[2016-11-11 05:31] LABS: ADD SCAN DIFF NO
[2016-11-11 05:33] LABS: BASOPHIL # 0.1 10^3/ul (0.0-0.1); BASOPHILS % 0.8 % (0.0-2.0); EOSINOPHILS # 0.5 10^3/ul (0.0-0.5); EOSINOPHILS % 8.7 % (0.0-7.0); HEMATOCRIT 32.8 % (37.0-47.0); HEMOGLOBIN 10.5 g/dl (12.0-16.0); LYMPHOCYTES # 1.7 10^3/ul (0.8-2.9); LYMPHOCYTES % 27.9 % (15.0-51.0); MEAN CORPUSCULAR HEMOGLOBIN 31.8 pg (29.0-33.0); MEAN CORPUSCULAR VOLUME 99.4 fl (82.0-101.0); MEAN PLATELET VOLUME 10.2 fl (7.4-10.4); MONOCYTE # 0.5 10^3/ul (0.3-0.9); MONOCYTES % 7.5 % (0.0-11.0); NEUTROPHIL # 3.3 10^3/ul (1.6-7.5); NEUTROPHILS % 54.8 % (39.0-77.0); PLATELET COUNT 247 10^3/UL (140-415); RED CELL DISTRIBUTION WIDTH 13.3 % (11.5-14.5); WHITE BLOOD COUNT 6.1 10^3/ul (4.8-10.8)
[2016-11-11 05:47] LABS: POTASSIUM 4.1 mmol/L (3.5-5.1)
[2016-11-11 05:50] LABS: CREATININE 0.52 mg/dl (0.44-1.00)
[2016-11-11 05:51] LABS: CALCIUM 8.7 mg/dl (8.4-10.2)
[2016-11-11] MEDS: LEVOTHYROXINE 125 MCG TAB PO SCH (06:33)
[2016-11-11] MEDS: LACTATED RINGER'S 1,000 ML IV SCH (06:33)
[2016-11-11] MEDS: PANTOPRAZOLE (EC) 40 MG TAB PO SCH ×2 (06:34→16:45)
[2016-11-11] MEDS: ENOXAPARIN 40 MG/0.4 ML SYG SC SCH (06:37)
[2016-11-11] MEDS: DEXTROSE 5%-0.9% NACL 1,000 ML IV SCH ×2 (08:33→18:17)
[2016-11-11] MEDS: SALMETEROL/FLUTICASONE 250/50 INHA INH SCH ×2 (08:34→20:39)
[2016-11-11 08:48] VITALS: BP 112/61; RESP 16
--- NOTE | 2016-11-11 10:42 | PN ---
Date/Time of Note Date/Time of Note DATE: 11/11/16 TIME: 10:39 Assessment/Plan VTE Prophylaxis VTE Prophylaxis Intervention: ambulation, SCD's Lines/Catheters IV Catheter Type (from Nrs): Saline Lock Urinary Cath still in place: No Assessment/Plan Chief Complaint/Hosp Course 71 y/o female pmh hypothyroidism, asthma, GERD, osteoporosis, prior SBO who was admitted 11/09/2016 for exploratory lap as workup for abdominal pain and lysis of adhesions. Problems: Assessment/Plan GI #abd pain/h/o SBO-s/p laparoscopic lysis of adhesions -judicious pain management. -will differ diet and dispo to surgery, not yet passing gas -encouraged continued ambulation and incentive spirometer. #GERD -protonix Endo #hypothyroid -synthroid Pulm #asthma -advair CV #HLD -atorva 10 Dispo: per surgery Subjective 24 Hr Interval Summary Free Text/Dictation Denies fevers, chills, nausea, vomiting, chest pain. Not passing gas yet. Ambulating well multiple times per day. Using incentive spirometer. Abdominal pain adequately controlled. Exam/Review of Systems Vital Signs Vitals Vital Signs Date Time Temp Pulse Resp B/P Pulse Ox O2 Delivery O2 Flow Rate FiO2 11/11/16 08:48 98.2 80 16 112/61 95 11/09/16 18:00 Nasal Cannula 2.0 Intake and Output 11/10/16 11/10/16 11/11/16 15:00 23:00 07:00 Intake Total 413 ml 1060 ml 1100 ml Output Total 1400 ml 1350 ml Balance 413 ml -340 ml -250 ml Exam GEN-NAD, alert and oriented x 4 HEENT- dry mucus membranes, OP clear, no scleral icterus CV-RRR, nml s1/s2, no m/r/g Pulm-CTAB, no w/r/r abd-tender to moderate palpation but no rebound or guarding. Somewhat improved bowel sounds. Ext-trace to 1+ bilateral lower extremity edema extending to distal 3rds Results Result Diagram: 11/11/1641911/11/16419 Results 24 hrs Laboratory Tests Test 11/11/16 04:20 White Blood Count 6.1 # Red Blood Count 3.30 L Hemoglobin 10.5 L Hematocrit 32.8 L Mean Corpuscular Volume 99.4 Mean Corpuscular Hemoglobin 31.8 Mean Corpuscular Hemoglobin Concent 32.0 Red Cell Distribution Width 13.3 Platelet Count 247 Mean Platelet Volume 10.2 Neutrophils % 54.8 Lymphocytes % 27.9 Monocytes % 7.5 Eosinophils % 8.7 H Basophils % 0.8 Nucleated Red Blood Cells % 0.0 Neutrophils # 3.3 Lymphocytes # 1.7 Monocytes # 0.5 Eosinophils # 0.5 Basophils # 0.1 Nucleated Red Blood Cells # 0.0 Sodium Level 140 Potassium Level 4.1 Chloride Level 105 Carbon Dioxide Level 27 Anion Gap 12 Blood Urea Nitrogen 7 Creatinine 0.52 Glucose Level 82 Calcium Level 8.7 Medications Medications Current Medications Ondansetron HCl 4 mg 4 mg Q6H PRN IV NAUSEA AND/OR VOMITING; Start 11/09/16 at 12:00 Potassium Chloride/Dextrose/ Sod Cl (D5-1/2ns + KCl 20 Meq) 1,000 ml @ 75 mls/ hr [id number] IV Last administered on 11/10/16 03:21; Admin Dose 75 MLS/HR; Start 11/09/16 at 11:45; Status Future Hold Enoxaparin Sodium (Lovenox) 40 mg DAILY@07 SC Last administered on 11/11/16 06: 37; Admin Dose 40 MG; Start 11/10/16 at 07:00 Acetaminophen/ Hydrocodone Bitart ([place] (5/325)) 2 tab Q4H PRN PO Pain 6-10 Last administered on 11/11/16 08:34; Admin Dose 2 TAB; Start 11/09/16 at 12:00 Acetaminophen/ Hydrocodone Bitart ([place] (5/325)) 1 tab Q4H PRN PO Pain 1-5 Last administered on 11/10/16 03:25; Admin Dose 1 TAB; Start 11/09/16 at 12:00 Hydromorphone HCl (Dilaudid) 0.5 mg Q2H PRN IV Breakthrough PAIN; Start at 12:00 Salmeterol Xinafoate/ Fluticasone (Advair 250/50 Diskus) 1 inh BID INH Last administered on 11/11/16 08:34; Admin Dose 1 INH; Start 11/09/16 at 21:00 Levothyroxine Sodium (Synthroid) 125 mcg DAILY@06 PO Last administered on 06:33; Admin Dose 125 MCG; Start 11/10/16 at 06:00 Atorvastatin Calcium (Lipitor) 10 mg DAILY@21 PO Last administered on 11/10/16 20:25; Admin Dose 10 MG; Start 11/09/16 at 21:00 Pantoprazole (Protonix Tab) 40 mg BID@06,18 PO Last administered on 11/11/16 06 :34; Admin Dose 40 MG; Start 11/09/16 at 18:00 Eye Lubricant 2 drop 2 drop QID PRN BOTH EYES DRY EYES Last administered on 11/09 23:14; Admin Dose 2 DROP; Start 11/09/16 at 18:30 Dextrose/Sodium Chloride (D5-NS) 1,000 ml @ 100 mls/hr Q10H IV Last administered on 11/11/16 08:33; Admin Dose 100 MLS/HR; Start 11/11/16 at 08:00; Stop 11/12/16 at 10:00 CHASIDY QURESHI MD Nov 11, 2016 10:42
[2016-11-11 19:51] VITALS: BP 121/66; RESP 18
--- NOTE | 2016-11-11 20:01 | PN ---
Date/Time of Note Date/Time of Note DATE: 11/10/16 TIME: 19:56 Assessment/Plan Lines/Catheters IV Catheter Type (from [facility]): Saline Lock [place] in [facility] (from [facility]): No Assessment/Plan Chief Complaint/Hosp Course 1. Paralytic ileus -oob/ambulate -chew gum 2. Hx of gastric bypass for morbid obesity -judicious hydration -vitamin and mineral replenishments 3. BMI 31 -eventual diet optimization -eventual exercise optimization 4. Hypothyroidism -replete hormone 5. Osteoporosis -medical optimization 6. Anemia, stable -monitor 7. Hypoalbuminemia -eventual nutritional optimization Thank you, Late entry 11/10 Problems: Subjective 24 Hr Interval Summary No f/c. No n/v. Min pain. No flatus or bm. No cp/sob. No cough. No bolden/ dizzy/visual or neuro changes. No dysuria. Exam/Review of Systems Vital Signs Vitals Vital Signs Date Time Temp Pulse Resp B/P Pulse Ox O2 Delivery O2 Flow Rate FiO2 11/11/16 19:51 98.2 78 18 121/66 94 11/09/16 18:00 Nasal Cannula 2.0 Intake and Output 11/10/16 11/10/16 11/11/16 15:00 23:00 07:00 Intake Total 413 ml 1060 ml 1100 ml Output Total 1400 ml 1350 ml Balance 413 ml -340 ml -250 ml Exam Constitutional: alert, obese, oriented, No distress Psych: nl mood/affect, No anxiety, No confusion Head: atraumatic, normocephalic Eyes: EOMI, PERRL, nl conjunctiva, No icteric ENMT: mucosa pink and moist, nl external ears & nose Neck: non-tender, supple, No jvd Respiratory: normal air movement, No congested cough Cardiovascular: regular rate and rhythm, No edema Gastrointestinal: soft, tender (min), No distended, No rebound or guarding Musculoskeletal: nl extremities to inspection, nl gait and stance, No joint tenderness Extremities: normal pulses, No calf tenderness, No cyanosis Neurological: nl mental status, nl speech, nl strength Skin: nl turgor, No diaphoresis, No rash or lesions Lymph: nl lymph nodes Results Result Diagram: 11/11/1641911/11/16419 SURY WALTERS MD Nov 11, 2016 20:01
--- NOTE | 2016-11-11 20:01 | PN ---
Date/Time of Note Date/Time of Note DATE: 11/11/16 TIME: 20:01 Assessment/Plan Lines/Catheters IV Catheter Type (from [facility]): Saline Lock [address] in [facility] (from [facility]): No Assessment/Plan Chief Complaint/Hosp Course 1. Paralytic ileus -oob/ambulate -chew gum 2. Hx of gastric bypass for morbid obesity -judicious hydration -vitamin and mineral replenishments 3. BMI 31 -eventual diet optimization -eventual exercise optimization 4. Hypothyroidism -replete hormone 5. Osteoporosis -medical optimization 6. Anemia, stable -monitor 7. Hypoalbuminemia -eventual nutritional optimization Thank you, Problems: Subjective 24 Hr Interval Summary No f/c. No n/v. Min pain. No flatus or bm. No cp/sob. No cough. No bolden/ dizzy/visual or neuro changes. No dysuria. Exam/Review of Systems Vital Signs Vitals Vital Signs Date Time Temp Pulse Resp B/P Pulse Ox O2 Delivery O2 Flow Rate FiO2 11/11/16 19:51 98.2 78 18 121/66 94 11/09/16 18:00 Nasal Cannula 2.0 Intake and Output 11/10/16 11/10/16 11/11/16 15:00 23:00 07:00 Intake Total 413 ml 1060 ml 1100 ml Output Total 1400 ml 1350 ml Balance 413 ml -340 ml -250 ml Exam Free Text/Dictation Constitutional: alert, obese, oriented, No distress Psych: nl mood/affect, No anxiety, No confusion Head: atraumatic, normocephalic Eyes: EOMI, PERRL, nl conjunctiva, No icteric ENMT: mucosa pink and moist, nl external ears & nose Neck: non-tender, supple, No jvd Respiratory: normal air movement, No congested cough Cardiovascular: regular rate and rhythm, No edema Gastrointestinal: soft, tender (min), No distended, No rebound or guarding Musculoskeletal: nl extremities to inspection, nl gait and stance, No joint tenderness Extremities: normal pulses, No calf tenderness, No cyanosis Neurological: nl mental status, nl speech, nl strength Skin: nl turgor, No diaphoresis, No rash or lesions Lymph: nl lymph nodes Results Result Diagram: 11/11/1641911/11/16419 SURY WALTERS MD Nov 11, 2016 20:01
[2016-11-11] MEDS: ATORVASTATIN 10 MG TAB PO SCH (20:39)
[2016-11-12] MEDS: HYDROCODONE/APAP (5/325) TAB PO PRN ×6 (01:07→21:36)
[2016-11-12] MEDS: DEXTROSE 5%-0.9% NACL 1,000 ML IV SCH (03:30)
[2016-11-12 04:54] LABS: ADD SCAN DIFF NO
[2016-11-12 05:04] LABS: BASOPHILS % 0.7 % (0.0-2.0); EOSINOPHILS # 0.8 10^3/ul (0.0-0.5); EOSINOPHILS % 12.8 % (0.0-7.0); HEMATOCRIT 32.8 % (37.0-47.0); HEMOGLOBIN 10.6 g/dl (12.0-16.0); LYMPHOCYTES # 1.6 10^3/ul (0.8-2.9); LYMPHOCYTES % 25.7 % (15.0-51.0); MEAN CORPUSCULAR HEMOGLOBIN 31.7 pg (29.0-33.0); MEAN CORPUSCULAR HGB CONC 32.3 g/dl (32.0-37.0); MEAN CORPUSCULAR VOLUME 98.2 fl (82.0-101.0); MEAN PLATELET VOLUME 9.8 fl (7.4-10.4); MONOCYTE # 0.5 10^3/ul (0.3-0.9); MONOCYTES % 8.1 % (0.0-11.0); NEUTROPHIL # 3.2 10^3/ul (1.6-7.5); NEUTROPHILS % 52.4 % (39.0-77.0); PLATELET COUNT 250 10^3/UL (140-415); RED BLOOD COUNT 3.34 10^6/ul (4.20-5.40); RED CELL DISTRIBUTION WIDTH 13.1 % (11.5-14.5)
[2016-11-12] MEDS: LEVOTHYROXINE 125 MCG TAB PO SCH (05:13)
[2016-11-12] MEDS: PANTOPRAZOLE (EC) 40 MG TAB PO SCH ×2 (05:13→17:40)
[2016-11-12 05:19] LABS: POTASSIUM 3.5 mmol/L (3.5-5.1)
[2016-11-12 05:22] LABS: CREATININE 0.52 mg/dl (0.44-1.00)
[2016-11-12 05:23] LABS: CALCIUM 8.6 mg/dl (8.4-10.2)
[2016-11-12] MEDS: ENOXAPARIN 40 MG/0.4 ML SYG SC SCH (06:49)
[2016-11-12] MEDS ORDERED: VITAMIN A & D 5 GM OINT PACKET TOP ONE (07:35)
[2016-11-12 08:11] VITALS: BP_SYST 127; BP_SYST 89; BP_DIAS 63; RESP 18
[2016-11-12] MEDS: SALMETEROL/FLUTICASONE 250/50 INHA INH SCH ×2 (08:20→21:35)
--- NOTE | 2016-11-12 11:04 | PN ---
Date/Time of Note Date/Time of Note DATE: 11/12/16 TIME: 10:47 Assessment/Plan VTE Prophylaxis VTE Prophylaxis Intervention: LMWH Lines/Catheters IV Catheter Type (from [facility]): Peripheral IV Urinary Cath still in place: No Assessment/Plan Chief Complaint/Hosp Course 1. S/P laprascopic exploratory abdominal surgery . Adhesions were removed . She has faint bowel sounds but not passing gas . 2. she is developing some edema , will decrease IV rate . 3. hair loss , will check iron and thyroid 4. asthma , will add Singulair . Problems: Subjective 24 Hr Interval Summary Free Text/Dictation She is awake and alert , not passing gas . Respiratory: no complaints Cardiovascular: no complaints Gastrointestinal: constipation, pain Skin: no complaints Exam/Review of Systems Vital Signs Vitals Vital Signs Date Time Temp Pulse Resp B/P Pulse Ox O2 Delivery O2 Flow Rate FiO2 11/12/16 08:11 127/63 11/12/16 08:11 98.2 89 18 96 11/09/16 18:00 Nasal Cannula 2.0 Intake and Output 11/11/16 11/11/16 11/12/16 15:00 23:00 07:00 Intake Total 100 ml 1000 ml 1250 ml Output Total 100 ml 1500 ml Balance 100 ml 900 ml -250 ml Exam Constitutional: alert, oriented, well developed Psych: nl mood/affect, no complaints Neck: supple Respiratory: clear to auscultation, normal air movement Cardiovascular: regular rate and rhythm Gastrointestinal: bowel sounds, soft, tender Extremities: edema Results Result Diagram: 11/12/16 0414 11/12/16 0415 Results 24 hrs Laboratory Tests Test 11/12/16 04:14 11/12/16 04:15 White Blood Count 6.0 Red Blood Count 3.34 L Hemoglobin 10.6 L Hematocrit 32.8 L Mean Corpuscular Volume 98.2 Mean Corpuscular Hemoglobin 31.7 Mean Corpuscular Hemoglobin Concent 32.3 Red Cell Distribution Width 13.1 Platelet Count 250 Mean Platelet Volume 9.8 Neutrophils % 52.4 Lymphocytes % 25.7 Monocytes % 8.1 Eosinophils % 12.8 H Basophils % 0.7 Nucleated Red Blood Cells % 0.0 Neutrophils # 3.2 Lymphocytes # 1.6 Monocytes # 0.5 Eosinophils # 0.8 H Basophils # 0.0 Nucleated Red Blood Cells # 0.0 Sodium Level 139 Potassium Level 3.5 Chloride Level 104 Carbon Dioxide Level 28 Anion Gap 11 Blood Urea Nitrogen 6 L Creatinine 0.52 Glucose Level 99 Calcium Level 8.6 Medications Medications Current Medications Ondansetron HCl 4 mg 4 mg Q6H PRN IV NAUSEA AND/OR VOMITING; Start 11/09/16 at 12:00 Potassium Chloride/Dextrose/ Sod Cl (D5-1/2ns + KCl 20 Meq) 1,000 ml @ 75 mls/ hr [id number] IV Last administered on 11/10/16 03:21; Admin Dose 75 MLS/HR; Start 11/09/16 at 11:45; Status Future Hold Enoxaparin Sodium (Lovenox) 40 mg DAILY@07 SC Last administered on 11/12/16 06 :49; Admin Dose 40 MG; Start 11/10/16 at 07:00 Acetaminophen/ Hydrocodone Bitart ([place] (5/325)) 2 tab Q4H PRN PO Pain 6-10 Last administered on 11/12/16 09:33; Admin Dose 2 TAB; Start 11/09/16 at 12:00 Acetaminophen/ Hydrocodone Bitart ([place] (5/325)) 1 tab Q4H PRN PO Pain 1-5 Last administered on 11/10/16 03:25; Admin Dose 1 TAB; Start 11/09/16 at 12:00 Hydromorphone HCl (Dilaudid) 0.5 mg Q2H PRN IV Breakthrough PAIN; Start at 12:00 Salmeterol Xinafoate/ Fluticasone (Advair 250/50 Diskus) 1 inh BID INH Last administered on 11/12/16 08:20; Admin Dose 1 INH; Start 11/09/16 at 21:00 Levothyroxine Sodium (Synthroid) 125 mcg DAILY@06 PO Last administered on 05:13; Admin Dose 125 MCG; Start 11/10/16 at 06:00 Atorvastatin Calcium (Lipitor) 10 mg DAILY@21 PO Last administered on 11/11/16 20:39; Admin Dose 10 MG; Start 11/09/16 at 21:00 Pantoprazole (Protonix Tab) 40 mg BID@06,18 PO Last administered on 11/12/16 05:13; Admin Dose 40 MG; Start 11/09/16 at 18:00 Eye Lubricant (Artificial Tears Oph) 2 drop QID PRN BOTH EYES DRY EYES Last administered on 11/09/16t 23:14; Admin Dose 2 DROP; Start 11/09/16 at 18:30 ANNIE STOUT MD Nov 12, 2016 10:57
[2016-11-12 11:24] LABS: IRON 35 ug/dl (35-150)
[2016-11-12 11:33] LABS: TOTAL IRON BINDING CAPACITY 286 ug/dl (241-421)
[2016-11-12 11:56] LABS: THYROID STIMULATING HORMONE 1.39 MIU/L (0.465-4.680)
[2016-11-12 12:00] LABS: FERRITIN 65.3 ng/ml (11.1-264.0)
[2016-11-12] MEDS: D5W-0.45 NACL + KCL 20 MEQ 1,000 ML IV SCH (13:39)
--- NOTE | 2016-11-12 18:26 | PN ---
Date/Time of Note Date/Time of Note DATE: 11/12/16 TIME: 18:25 Assessment/Plan Lines/Catheters IV Catheter Type (from [facility]): Peripheral IV Chavez in Place (from [facility]): No Assessment/Plan Chief Complaint/Hosp Course 1. Paralytic ileus -oob/ambulate -chew gum 2. Hx of gastric bypass for morbid obesity -judicious hydration -vitamin and mineral replenishments 3. BMI 31 -eventual diet optimization -eventual exercise optimization 4. Hypothyroidism -replete hormone 5. Osteoporosis -medical optimization 6. Anemia, stable -monitor 7. Hypoalbuminemia -eventual nutritional optimization Thank you, Problems: Subjective 24 Hr Interval Summary No f/c. No n/v. Min pain. No flatus or bm still. No cp/sob. No cough. No bolden/dizzy/visual or neuro changes. No dysuria. Exam/Review of Systems Vital Signs Vitals Vital Signs Date Time Temp Pulse Resp B/P Pulse Ox O2 Delivery O2 Flow Rate FiO2 11/12/16 08:11 127/63 11/12/16 08:11 98.2 89 18 96 11/09/16 18:00 Nasal Cannula 2.0 Intake and Output 11/11/16 11/11/16 11/12/16 15:00 23:00 07:00 Intake Total 100 ml 1000 ml 1250 ml Output Total 100 ml 1500 ml Balance 100 ml 900 ml -250 ml Exam Free Text/Dictation Constitutional: alert, obese, oriented, No distress Psych: nl mood/affect, No anxiety, No confusion Head: atraumatic, normocephalic Eyes: EOMI, PERRL, nl conjunctiva, No icteric ENMT: mucosa pink and moist, nl external ears & nose Neck: non-tender, supple, No jvd Respiratory: normal air movement, No congested cough Cardiovascular: regular rate and rhythm, No edema Gastrointestinal: soft, tender (min), No distended, No rebound or guarding Musculoskeletal: nl extremities to inspection, nl gait and stance, No joint tenderness Extremities: normal pulses, No calf tenderness, No cyanosis Neurological: nl mental status, nl speech, nl strength Skin: nl turgor, No diaphoresis, No rash or lesions Lymph: nl lymph nodes Results Result Diagram: 11/12/16 0414 11/12/16 0415 SURY WALTERS MD Nov 12, 2016 18:26
[2016-11-12 19:39] VITALS: BP 115/60; RESP 18
[2016-11-12] MEDS: ATORVASTATIN 10 MG TAB PO SCH (21:35)
[2016-11-12] MEDS: MONTELUKAST 10 MG TAB PO SCH (21:35)
[2016-11-13] MEDS: HYDROCODONE/APAP (5/325) TAB PO PRN ×6 (01:39→21:59)
[2016-11-13] MEDS: D5W-0.45 NACL + KCL 20 MEQ 1,000 ML IV SCH ×2 (01:50→05:07)
[2016-11-13 05:05] LABS: ADD SCAN DIFF NO
[2016-11-13 05:13] LABS: BASOPHILS % 0.7 % (0.0-2.0); EOSINOPHILS # 0.9 10^3/ul (0.0-0.5); HEMATOCRIT 34.1 % (37.0-47.0); HEMOGLOBIN 11.2 g/dl (12.0-16.0); LYMPHOCYTES # 1.5 10^3/ul (0.8-2.9); LYMPHOCYTES % 24.8 % (15.0-51.0); MEAN CORPUSCULAR HEMOGLOBIN 31.8 pg (29.0-33.0); MEAN CORPUSCULAR HGB CONC 32.8 g/dl (32.0-37.0); MEAN CORPUSCULAR VOLUME 96.9 fl (82.0-101.0); MEAN PLATELET VOLUME 9.8 fl (7.4-10.4); MONOCYTE # 0.5 10^3/ul (0.3-0.9); MONOCYTES % 9.1 % (0.0-11.0); NEUTROPHILS % 50.2 % (39.0-77.0); PLATELET COUNT 258 10^3/UL (140-415); RED BLOOD COUNT 3.52 10^6/ul (4.20-5.40); RED CELL DISTRIBUTION WIDTH 12.9 % (11.5-14.5); WHITE BLOOD COUNT 5.9 10^3/ul (4.8-10.8)
[2016-11-13 05:35] LABS: ALBUMIN 3.1 g/dl (3.3-4.9); ALBUMIN/GLOBULIN RATIO 1.14; BILIRUBIN,INDIRECT 0.7 mg/dl (0-1.1); BILIRUBIN,TOTAL 0.7 mg/dl (0.2-1.3); CALCIUM 8.8 mg/dl (8.4-10.2); CREATININE 0.47 mg/dl (0.44-1.00); MAGNESIUM 1.9 mg/dl (1.7-2.5); TOTAL PROTEIN 5.8 g/dl (6.1-8.1)
[2016-11-13] MEDS: PANTOPRAZOLE (EC) 40 MG TAB PO SCH ×2 (05:39→17:56)
[2016-11-13] MEDS: LEVOTHYROXINE 125 MCG TAB PO SCH (05:39)
[2016-11-13] MEDS: ENOXAPARIN 40 MG/0.4 ML SYG SC SCH (06:42)
[2016-11-13 07:41] VITALS: BP 121/56; RESP 20
[2016-11-13] MEDS: SALMETEROL/FLUTICASONE 250/50 INHA INH SCH ×2 (09:24→20:42)
--- NOTE | 2016-11-13 13:56 | PN ---
Date/Time of Note Date/Time of Note DATE: 11/13/16 TIME: 13:53 Assessment/Plan VTE Prophylaxis VTE Prophylaxis Intervention: ambulation, LMWH Lines/Catheters IV Catheter Type (from [facility]): Peripheral IV Urinary Cath still in place: No Assessment/Plan Chief Complaint/Hosp Course 1. S/P laprascopic exploratory abdominal surgery . Adhesions were removed . She has good bowel sounds and is passing gas . 2. she is developing some edema , will decrease IV rate . 3. hair loss , will check iron and thyroid 4. asthma , will add Singulair and check CXR Problems: Subjective 24 Hr Interval Summary Constitutional: improved, no complaints Respiratory: cough Cardiovascular: no complaints Gastrointestinal: flatus Genitourinary: no complaints Neurologic: no complaints Exam/Review of Systems Vital Signs Vitals Vital Signs Date Time Temp Pulse Resp B/P Pulse Ox O2 Delivery O2 Flow Rate FiO2 11/13/16 07:41 97.8 71 20 121/56 96 11/09/16 18:00 Nasal Cannula 2.0 Intake and Output 11/12/16 11/12/16 11/13/16 15:00 23:00 07:00 Intake Total 1000 ml 300 ml 1000 ml Output Total 1050 ml 1500 ml Balance 1000 ml -750 ml -500 ml Exam Constitutional: alert, oriented, well developed Psych: nl mood/affect, no complaints Respiratory: congested cough Cardiovascular: regular rate and rhythm Gastrointestinal: bowel sounds, soft Results Result Diagram: 11/13/16 0425 11/13/16 0425 Results 24 hrs Laboratory Tests Test 11/13/16 04:25 White Blood Count 5.9 Red Blood Count 3.52 L Hemoglobin 11.2 L Hematocrit 34.1 L Mean Corpuscular Volume 96.9 Mean Corpuscular Hemoglobin 31.8 Mean Corpuscular Hemoglobin Concent 32.8 Red Cell Distribution Width 12.9 Platelet Count 258 Mean Platelet Volume 9.8 Neutrophils % 50.2 Lymphocytes % 24.8 Monocytes % 9.1 Eosinophils % 15.0 H Basophils % 0.7 Nucleated Red Blood Cells % 0.0 Neutrophils # 3.0 Lymphocytes # 1.5 Monocytes # 0.5 Eosinophils # 0.9 H Basophils # 0.0 Nucleated Red Blood Cells # 0.0 Sodium Level 136 Potassium Level 4.0 Chloride Level 106 Carbon Dioxide Level 28 Anion Gap 6 L Blood Urea Nitrogen 4 L Creatinine 0.47 Glucose Level 93 Calcium Level 8.8 Phosphorus Level 4.0 Magnesium Level 1.9 Total Bilirubin 0.7 Direct Bilirubin 0.00 Indirect Bilirubin 0.7 Aspartate Amino Transf (AST/SGOT) 29 Alanine Aminotransferase (ALT/SGPT) 33 Alkaline Phosphatase 67 Total Protein 5.8 L Albumin 3.1 L Globulin 2.70 Albumin/Globulin Ratio 1.14 Medications Medications Current Medications Ondansetron HCl (Zofran Inj) 4 mg Q6H PRN IV NAUSEA AND/OR VOMITING; Start 11/09 at 12:00 Enoxaparin Sodium (Lovenox) 40 mg DAILY@07 SC Last administered on 11/13/16 06 :42; Admin Dose 40 MG; Start 11/10/16 at 07:00 Acetaminophen/ Hydrocodone Bitart ([place] (5/325)) 2 tab Q4H PRN PO Pain 6-10 Last administered on 11/13/16 05:39; Admin Dose 2 TAB; Start 11/09/16 at 12:00 Acetaminophen/ Hydrocodone Bitart ([place] (5/325)) 1 tab Q4H PRN PO Pain 1-5 Last administered on 11/13/16 13:35; Admin Dose 1 TAB; Start 11/09/16 at 12:00 Hydromorphone HCl (Dilaudid) 0.5 mg Q2H PRN IV Breakthrough PAIN; Start at 12:00 Salmeterol Xinafoate/ Fluticasone (Advair 250/50 Diskus) 1 inh BID INH Last administered on 11/13/16 09:24; Admin Dose 1 INH; Start 11/09/16 at 21:00 Levothyroxine Sodium (Synthroid) 125 mcg DAILY@06 PO Last administered on 05:39; Admin Dose 125 MCG; Start 11/10/16 at 06:00 Atorvastatin Calcium (Lipitor) 10 mg DAILY@21 PO Last administered on 21:35; Admin Dose 10 MG; Start 11/09/16 at 21:00 Pantoprazole (Protonix Tab) 40 mg BID@06,18 PO Last administered on 11/13/16 05:39; Admin Dose 40 MG; Start 11/09/16 at 18:00 Eye Lubricant (Artificial Tears Oph) 2 drop QID PRN BOTH EYES DRY EYES Last administered on 11/09/16 23:14; Admin Dose 2 DROP; Start 11/09/16 at 18:30 Montelukast Sodium 10 mg 10 mg HS PO Last administered on 11/12/16 21:35; Admin Dose 10 MG; Start 11/12/16 at 21:00 Potassium Chloride/Dextrose/ Sod Cl (D5-1/2ns + KCl 20 Meq) 1,000 ml @ 75 mls/ hr [id number] IV Last administered on 11/13/16 05:07; Admin Dose 75 MLS/HR; Start 11/12/16 at 12:30 ANNIE STOUT MD Nov 13, 2016 13:56
--- NOTE | 2016-11-13 15:08 | RADRPT ---
PROCEDURE: XR Chest. CLINICAL INDICATION: Cough. TECHNIQUE: Two views. Frontal and lateral. COMPARISON: 09/18/2016. FINDINGS: The nasogastric tube has been removed. There is mild atelectasis at the lung bases, unchanged. The heart size is normal. There is calcification in the aorta consistent with atherosclerosis. There is no pleural effusion. There is no pneumothorax. IMPRESSION: 1. Nasogastric tube removed. 2. Atherosclerosis. 3. Mild atelectasis at the lung bases, unchanged. RPTAT: QQ .Rudolph Salcedo MD, MD Date Time Electronically viewed and signed by .Rudolph aSlcedo MD, MD on 11/13/2016 15:08 .R/
[2016-11-13] MEDS: FERROUS GLUCONATE (EC) 325 MG TAB PO SCH ×2 (15:51→20:42)
--- NOTE | 2016-11-13 18:57 | PN ---
Date/Time of Note Date/Time of Note DATE: 11/13/16 TIME: 18:56 Assessment/Plan Lines/Catheters IV Catheter Type (from [facility]): Peripheral IV [place] in Place (from [facility]): No Assessment/Plan Chief Complaint/Hosp Course 1. Paralytic ileus. Improving -oob/ambulate -clears and advance diet as tolerated 2. Hx of gastric bypass for morbid obesity -judicious hydration -vitamin and mineral replenishments 3. BMI 31 -eventual diet optimization -eventual exercise optimization 4. Hypothyroidism -replete hormone 5. Osteoporosis -medical optimization 6. Anemia, stable -monitor -hold iron till ileus resolved 7. Hypoalbuminemia -eventual nutritional optimization Thank you, Problems: Subjective 24 Hr Interval Summary No f/c. No n/v. Min pain. Flatus. No cp/sob. No cough. No bolden/dizzy/visual or neuro changes. No dysuria. Exam/Review of Systems Vital Signs Vitals Vital Signs Date Time Temp Pulse Resp B/P Pulse Ox O2 Delivery O2 Flow Rate FiO2 11/13/16 07:41 97.8 71 20 121/56 96 11/09/16 18:00 Nasal Cannula 2.0 Intake and Output 11/12/16 11/12/16 11/13/16 15:00 23:00 07:00 Intake Total 1000 ml 300 ml 1000 ml Output Total 1050 ml 1500 ml Balance 1000 ml -750 ml -500 ml Exam Free Text/Dictation Constitutional: alert, obese, oriented, No distress Psych: nl mood/affect, No anxiety, No confusion Head: atraumatic, normocephalic Eyes: EOMI, PERRL, nl conjunctiva, No icteric ENMT: mucosa pink and moist, nl external ears & nose Neck: non-tender, supple, No jvd Respiratory: normal air movement, No congested cough Cardiovascular: regular rate and rhythm, No edema Gastrointestinal: soft, tender (min), No distended, No rebound or guarding Musculoskeletal: nl extremities to inspection, nl gait and stance, No joint tenderness Extremities: normal pulses, No calf tenderness, No cyanosis Neurological: nl mental status, nl speech, nl strength Skin: nl turgor, No diaphoresis, No rash or lesions Lymph: nl lymph nodes Results Result Diagram: 11/13/165 11/13/16424 SURY WALTERS MD Nov 13, 2016 18:57
[2016-11-13 19:51] VITALS: BP 97/53; RESP 18
[2016-11-13] MEDS: ATORVASTATIN 10 MG TAB PO SCH (20:42)
[2016-11-13] MEDS: MONTELUKAST 10 MG TAB PO SCH (20:42)
[2016-11-14] MEDS: HYDROCODONE/APAP (5/325) TAB PO PRN ×5 (03:05→22:07)
[2016-11-14] MEDS: LEVOTHYROXINE 125 MCG TAB PO SCH (06:03)
[2016-11-14] MEDS: PANTOPRAZOLE (EC) 40 MG TAB PO SCH ×2 (06:03→17:34)
[2016-11-14] MEDS: ENOXAPARIN 40 MG/0.4 ML SYG SC SCH (06:08)
[2016-11-14 07:41] VITALS: BP 93/51; RESP 18
[2016-11-14] MEDS: FERROUS GLUCONATE (EC) 325 MG TAB PO SCH ×2 (08:45→20:51)
[2016-11-14] MEDS: SALMETEROL/FLUTICASONE 250/50 INHA INH SCH ×2 (08:45→20:52)
--- NOTE | 2016-11-14 13:59 | PN ---
Date/Time of Note Date/Time of Note DATE: 11/14/16 TIME: 13:56 Assessment/Plan VTE Prophylaxis VTE Prophylaxis Intervention: ambulation, LMWH Lines/Catheters IV [facility] Type (from [facility]): Saline Lock Urinary Cath still in place: No Assessment/Plan Chief Complaint/Hosp Course 1. S/P laprascopic exploratory abdominal surgery . Adhesions were removed . She has good bowel sounds and is passing gas . 2. she is developing some edema , will decrease IV rate . 3. hair loss , she is iron deficient 4. asthma , will add Singulair and check CXR 5. anemia , she started oral iron . Problems: Subjective 24 Hr Interval Summary Free Text/Dictation She is feeling better . she has been passing gas but no BM's . She has been up walking . Constitutional: improved, no complaints Respiratory: no complaints Cardiovascular: no complaints Gastrointestinal: constipation, pain Genitourinary: no complaints Psychological: nl mood/affect, no complaints Exam/Review of Systems Vital Signs Vitals Vital Signs Date Time Temp Pulse Resp B/P Pulse Ox O2 Delivery O2 Flow Rate FiO2 11/14/16 07:41 98.0 79 18 93/51 94 Intake and Output 11/13/16 11/13/16 11/14/16 14:59 22:59 06:59 Intake Total 600 ml 900 ml 560 ml Output Total 1850 ml 1950 ml Balance 600 ml -950 ml -1390 ml Exam Constitutional: alert, oriented, well developed ENMT: nl external ears & nose, nl lips & teeth, nl nasal mucosa & septum Respiratory: clear to auscultation, normal air movement Cardiovascular: regular rate and rhythm Gastrointestinal: soft, tender Musculoskeletal: nl extremities to inspection Results Result Diagram: 11/13/16 0425 11/13/16 0425 Medications Medications Current Medications Ondansetron HCl (Zofran Inj) 4 mg Q6H PRN IV NAUSEA AND/OR VOMITING; Start 11/09 at 12:00 Enoxaparin Sodium (Lovenox) 40 mg DAILY@07 SC Last administered on 11/14/16 06 :08; Admin Dose 40 MG; Start 11/10/16 at 07:00 Acetaminophen/ Hydrocodone Bitart ([place] (5/325)) 2 tab Q4H PRN PO Pain 6-10 Last administered on 11/13/16 05:39; Admin Dose 2 TAB; Start 11/09/16 at 12:00 Acetaminophen/ Hydrocodone Bitart ([place] (5/325)) 1 tab Q4H PRN PO Pain 1-5 Last administered on 11/14/16 13:01; Admin Dose 1 TAB; Start 11/09/16 at 12:00 Hydromorphone HCl (Dilaudid) 0.5 mg Q2H PRN IV Breakthrough PAIN; Start at 12:00 Salmeterol Xinafoate/ Fluticasone (Advair 250/50 Diskus) 1 inh BID INH Last administered on 11/14/16 08:45; Admin Dose 1 INH; Start 11/09/16 at 21:00 Levothyroxine Sodium (Synthroid) 125 mcg DAILY@06 PO Last administered on 06:03; Admin Dose 125 MCG; Start 11/10/16 at 06:00 Atorvastatin Calcium (Lipitor) 10 mg DAILY@21 PO Last administered on 20:42; Admin Dose 10 MG; Start 11/09/16 at 21:00 Pantoprazole (Protonix Tab) 40 mg BID@06,18 PO Last administered on 11/14/16 06:03; Admin Dose 40 MG; Start 11/09/16 at 18:00 Eye Lubricant (Artificial Tears Oph) 2 drop QID PRN BOTH EYES DRY EYES Last administered on 11/09/16 23:14; Admin Dose 2 DROP; Start 11/09/16 at 18:30 Montelukast Sodium (Singulair) 10 mg HS PO Last administered on 11/13/16 20:42 ; Admin Dose 10 MG; Start 11/12/16 at 21:00 Ferrous Gluconate (Fergon) 325 mg BID PO Last administered on 11/14/16 08:45; Admin Dose 325 MG; Start 11/13/16 at 14:00 ANNIE STOUT MD Nov 14, 2016 13:59
--- NOTE | 2016-11-14 14:25 | PN ---
Date/Time of Note Date/Time of Note DATE: 11/14/16 TIME: 14:24 Assessment/Plan Lines/Catheters IV Catheter Type (from [facility]): Saline Lock [place] in Place (from [facility]): No Assessment/Plan Chief Complaint/Hosp Course 1. Paralytic ileus. Improving -oob/ambulate -clears and advance diet as tolerated -senna/reglan 2. Hx of gastric bypass for morbid obesity -judicious hydration -vitamin and mineral replenishments 3. BMI 31 -eventual diet optimization -eventual exercise optimization 4. Hypothyroidism -replete hormone 5. Osteoporosis -medical optimization 6. Anemia, stable -monitor -hold iron till ileus resolved 7. Hypoalbuminemia -eventual nutritional optimization Thank you, Problems: Subjective 24 Hr Interval Summary No f/c. No n/v. Min pain. Flatus but no bm yet. No cp/sob. No cough. No bolden /dizzy/visual or neuro changes. No dysuria. Exam/Review of Systems Vital Signs Vitals Vital Signs Date Time Temp Pulse Resp B/P Pulse Ox O2 Delivery O2 Flow Rate FiO2 11/14/16 07:41 98.0 79 18 93/51 94 Intake and Output 11/13/16 11/13/16 11/14/16 15:00 23:00 07:00 Intake Total 600 ml 900 ml 560 ml Output Total 1850 ml 1950 ml Balance 600 ml -950 ml -1390 ml Exam Free Text/Dictation Constitutional: alert, obese, oriented, No distress Psych: nl mood/affect, No anxiety, No confusion Head: atraumatic, normocephalic Eyes: EOMI, PERRL, nl conjunctiva, No icteric ENMT: mucosa pink and moist, nl external ears & nose Neck: non-tender, supple, No jvd Respiratory: normal air movement, No congested cough Cardiovascular: regular rate and rhythm, No edema Gastrointestinal: soft, tender (min), No distended, No rebound or guarding Musculoskeletal: nl extremities to inspection, nl gait and stance, No joint tenderness Extremities: normal pulses, No calf tenderness, No cyanosis Neurological: nl mental status, nl speech, nl strength Skin: nl turgor, No diaphoresis, No rash or lesions Lymph: nl lymph nodes Results Result Diagram: 11/13/16 0425 11/13/16 0425 SURY WALTERS MD Nov 14, 2016 14:25
[2016-11-14] MEDS ORDERED: METOCLOPRAMIDE 10 MG INJ IV PRN (14:30)
[2016-11-14] MEDS: SENNA/DOCUSATE NA (8.6MG/50MG) TAB PO PRN (14:52)
[2016-11-14 19:42] VITALS: BP 121/57; RESP 20
[2016-11-14] MEDS: ATORVASTATIN 10 MG TAB PO SCH (20:51)
[2016-11-14] MEDS: MONTELUKAST 10 MG TAB PO SCH (20:51)
[2016-11-15] MEDS: HYDROCODONE/APAP (5/325) TAB PO PRN ×6 (02:17→22:09)
[2016-11-15 05:10] LABS: ADD SCAN DIFF NO
[2016-11-15 05:12] LABS: BASOPHILS % 0.5 % (0.0-2.0); EOSINOPHILS # 0.8 10^3/ul (0.0-0.5); EOSINOPHILS % 13.3 % (0.0-7.0); HEMATOCRIT 34.6 % (37.0-47.0); HEMOGLOBIN 11.2 g/dl (12.0-16.0); LYMPHOCYTES # 1.4 10^3/ul (0.8-2.9); LYMPHOCYTES % 24.2 % (15.0-51.0); MEAN CORPUSCULAR HEMOGLOBIN 31.2 pg (29.0-33.0); MEAN CORPUSCULAR HGB CONC 32.4 g/dl (32.0-37.0); MEAN CORPUSCULAR VOLUME 96.4 fl (82.0-101.0); MONOCYTE # 0.6 10^3/ul (0.3-0.9); MONOCYTES % 9.8 % (0.0-11.0); NEUTROPHILS % 51.7 % (39.0-77.0); PLATELET COUNT 281 10^3/UL (140-415); RED BLOOD COUNT 3.59 10^6/ul (4.20-5.40); WHITE BLOOD COUNT 5.8 10^3/ul (4.8-10.8)
[2016-11-15 05:31] LABS: ALBUMIN 3.2 g/dl (3.3-4.9); ALBUMIN/GLOBULIN RATIO 1.23; BILIRUBIN,INDIRECT 0.6 mg/dl (0-1.1); BILIRUBIN,TOTAL 0.6 mg/dl (0.2-1.3); CALCIUM 8.8 mg/dl (8.4-10.2); CREATININE 0.49 mg/dl (0.44-1.00); TOTAL PROTEIN 5.8 g/dl (6.1-8.1)
[2016-11-15] MEDS: PANTOPRAZOLE (EC) 40 MG TAB PO SCH ×2 (05:47→17:47)
[2016-11-15] MEDS: LEVOTHYROXINE 125 MCG TAB PO SCH (05:47)
[2016-11-15] MEDS: ENOXAPARIN 40 MG/0.4 ML SYG SC SCH (05:49)
[2016-11-15 07:53] VITALS: BP 101/52; RESP 16
[2016-11-15] MEDS: SALMETEROL/FLUTICASONE 250/50 INHA INH SCH ×2 (08:51→20:39)
[2016-11-15] MEDS: FERROUS GLUCONATE (EC) 325 MG TAB PO SCH ×2 (08:51→20:38)
[2016-11-15] MEDS: SENNA/DOCUSATE NA (8.6MG/50MG) TAB PO PRN (08:51)
--- NOTE | 2016-11-15 09:49 | CONS ---
Date/Time of Note Date/Time of Note DATE: 11/15/16 TIME: 09:45 Assessment/Plan Assessment/Plan Chief Complaint/Hosp Course 1. S/P laprascopic exploratory abdominal surgery . Adhesions were removed . She has good bowel sounds and is passing gas .No BM 2. she is developing some edema , will decrease IV rate . 3. hair loss , she is iron deficient 4. asthma , will add Singulair and check CXR 5. anemia , she started oral iron . Problems: Consultation Date/Type/Reason Admit Date/Time Nov 09, 2016 at 12:08 Initial Consult Date 24 HR Interval Summary Free Text/Dictation She is feeling better . passing gas but no BM . She had a dose of Reglan . had side effects . Constitutional: improved, no complaints Exam/Review of Systems Vital Signs Vitals Vital Signs Date Time Temp Pulse Resp B/P Pulse Ox O2 Delivery O2 Flow Rate FiO2 11/15/16 07:53 97.9 79 16 101/52 96 Intake and Output 11/14/16 11/14/16 11/15/16 15:00 23:00 07:00 Intake Total 1120 ml 720 ml Output Total 2000 ml 1050 ml Balance -880 ml -330 ml Exam Constitutional: alert, oriented, well developed Psych: nl mood/affect, no complaints Respiratory: clear to auscultation, normal air movement Cardiovascular: regular rate and rhythm Gastrointestinal: bowel sounds, soft, tender Musculoskeletal: nl extremities to inspection Results Result Diagram: 11/15/16 0410 11/15/16 0410 Results 24 hrs Laboratory Tests Test 11/15/16 04:10 White Blood Count 5.8 Red Blood Count 3.59 L Hemoglobin 11.2 L Hematocrit 34.6 L Mean Corpuscular Volume 96.4 Mean Corpuscular Hemoglobin 31.2 Mean Corpuscular Hemoglobin Concent 32.4 Red Cell Distribution Width 13.0 Platelet Count 281 Mean Platelet Volume 10.0 Neutrophils % 51.7 Lymphocytes % 24.2 Monocytes % 9.8 Eosinophils % 13.3 H Basophils % 0.5 Nucleated Red Blood Cells % 0.0 Neutrophils # 3.0 Lymphocytes # 1.4 Monocytes # 0.6 Eosinophils # 0.8 H Basophils # 0.0 Nucleated Red Blood Cells # 0.0 Sodium Level 137 Potassium Level 4.0 Chloride Level 106 Carbon Dioxide Level 28 Anion Gap 7 L Blood Urea Nitrogen 6 L Creatinine 0.49 Glucose Level 81 Calcium Level 8.8 Total Bilirubin 0.6 Direct Bilirubin 0.00 Indirect Bilirubin 0.6 Aspartate Amino Transf (AST/SGOT) 43 Alanine Aminotransferase (ALT/SGPT) 29 Alkaline Phosphatase 85 Total Protein 5.8 L Albumin 3.2 L Globulin 2.60 Albumin/Globulin Ratio 1.23 Medications Medications Current Medications Ondansetron HCl (Zofran Inj) 4 mg Q6H PRN IV NAUSEA AND/OR VOMITING; Start 11/09 at 12:00 Enoxaparin Sodium (Lovenox) 40 mg DAILY@07 SC Last administered on 11/15/16 05 :49; Admin Dose 40 MG; Start 11/10/16 at 07:00 Acetaminophen/ Hydrocodone Bitart ([place] (5/325)) 2 tab Q4H PRN PO Pain 6-10 Last administered on 11/13/16 05:39; Admin Dose 2 TAB; Start 11/09/16 at 12:00 Acetaminophen/ Hydrocodone Bitart ([place] (5/325)) 1 tab Q4H PRN PO Pain 1-5 Last administered on 11/15/16 05:48; Admin Dose 1 TAB; Start 11/09/16 at 12:00 Hydromorphone HCl (Dilaudid) 0.5 mg Q2H PRN IV Breakthrough PAIN; Start at 12:00 Salmeterol Xinafoate/ Fluticasone (Advair 250/50 Diskus) 1 inh BID INH Last administered on 11/15/16 08:51; Admin Dose 1 INH; Start 11/09/16 at 21:00 Levothyroxine Sodium (Synthroid) 125 mcg DAILY@06 PO Last administered on 05:47; Admin Dose 125 MCG; Start 11/10/16 at 06:00 Atorvastatin Calcium (Lipitor) 10 mg DAILY@21 PO Last administered on 20:51; Admin Dose 10 MG; Start 11/09/16 at 21:00 Pantoprazole (Protonix Tab) 40 mg BID@06,18 PO Last administered on 11/15/16 05:47; Admin Dose 40 MG; Start 11/09/16 at 18:00 Eye Lubricant (Artificial Tears Oph) 2 drop QID PRN BOTH EYES DRY EYES Last administered on 11/09/16 23:14; Admin Dose 2 DROP; Start 11/09/16 at 18:30 Montelukast Sodium (Singulair) 10 mg HS PO Last administered on 11/14/16 20:51 ; Admin Dose 10 MG; Start 11/12/16 at 21:00 Ferrous Gluconate (Fergon) 325 mg BID PO Last administered on 11/15/16 08:51; Admin Dose 325 MG; Start 11/13/16 at 14:00 Senna/Docusate Sodium (Senokot-S) 2 tab BID PRN PO constipation Last administered on 11/15/16 08:51; Admin Dose 2 TAB; Start 11/14/16 at 14:30 Metoclopramide HCl (Reglan) 10 mg Q6 PRN IV constipation Last administered on 14:52; Admin Dose 10 MG; Start 11/14/16 at 14:30 ANNIE STOUT MD Nov 15, 2016 09:48
[2016-11-15] MEDS ORDERED: MAGNESIUM HYDROXIDE 30ML CUP PO ONE (18:30)
[2016-11-15 19:57] VITALS: BP 119/72; RESP 22
[2016-11-15] MEDS: ATORVASTATIN 10 MG TAB PO SCH (20:38)
[2016-11-15] MEDS: MONTELUKAST 10 MG TAB PO SCH (20:38)
--- NOTE | 2016-11-15 23:45 | PN ---
Date/Time of Note Date/Time of Note DATE: 11/15/16 TIME: 23:44 Assessment/Plan Lines/Catheters IV Catheter Type (from [facility]): Saline Lock [place] in Place (from [facility]): No Assessment/Plan Chief Complaint/Hosp Course 1. Paralytic ileus. Improving -oob/ambulate -advance diet as tolerated -senna/reglan 2. Hx of gastric bypass for morbid obesity -judicious hydration -vitamin and mineral replenishments 3. BMI 31 -eventual diet optimization -eventual exercise optimization 4. Hypothyroidism -replete hormone 5. Osteoporosis -medical optimization 6. Anemia, stable -monitor -hold iron till ileus resolved 7. Hypoalbuminemia -eventual nutritional optimization Thank you, Problems: Subjective 24 Hr Interval Summary No f/c. No n/v. Min pain. Flatus but no bm yet. No cp/sob. No cough. No bolden /dizzy/visual or neuro changes. No dysuria. Exam/Review of Systems Vital Signs Vitals Vital Signs Date Time Temp Pulse Resp B/P Pulse Ox O2 Delivery O2 Flow Rate FiO2 11/15/16 19:57 98.4 95 22 119/72 98 Intake and Output 11/14/16 11/14/16 11/15/16 15:00 23:00 07:00 Intake Total 1120 ml 720 ml Output Total 2000 ml 1050 ml Balance -880 ml -330 ml Exam Free Text/Dictation Constitutional: alert, obese, oriented, No distress Psych: nl mood/affect, No anxiety, No confusion Head: atraumatic, normocephalic Eyes: EOMI, PERRL, nl conjunctiva, No icteric ENMT: mucosa pink and moist, nl external ears & nose Neck: non-tender, supple, No jvd Respiratory: normal air movement, No congested cough Cardiovascular: regular rate and rhythm, No edema Gastrointestinal: soft, tender (min), No distended, No rebound or guarding Musculoskeletal: nl extremities to inspection, nl gait and stance, No joint tenderness Extremities: normal pulses, No calf tenderness, No cyanosis Neurological: nl mental status, nl speech, nl strength Skin: nl turgor, No diaphoresis, No rash or lesions Lymph: nl lymph nodes Results Result Diagram: 11/15/16 0410 11/15/16 0410 SURY WALTERS MD Nov 15, 2016 23:45
[2016-11-16] MEDS: HYDROCODONE/APAP (5/325) TAB PO PRN ×5 (02:09→18:02)
[2016-11-16] MEDS: LEVOTHYROXINE 125 MCG TAB PO SCH (05:40)
[2016-11-16] MEDS: PANTOPRAZOLE (EC) 40 MG TAB PO SCH ×2 (05:40→18:02)
[2016-11-16] MEDS: ENOXAPARIN 40 MG/0.4 ML SYG SC SCH (05:43)
[2016-11-16 08:00] VITALS: BP 102/59; RESP 18
[2016-11-16] MEDS: FERROUS GLUCONATE (EC) 325 MG TAB PO SCH ×2 (08:44→20:44)
[2016-11-16] MEDS: SALMETEROL/FLUTICASONE 250/50 INHA INH SCH ×2 (08:45→21:25)
[2016-11-16] MEDS ORDERED: MAGNESIUM HYDROXIDE 30ML CUP PO ONE (09:00)
--- NOTE | 2016-11-16 09:53 | CONS ---
Date/Time of Note Date/Time of Note DATE: 11/16/16 TIME: 09:49 Assessment/Plan Assessment/Plan Chief Complaint/Hosp Course 1. S/P laprascopic exploratory abdominal surgery . Adhesions were removed . She has good bowel sounds and is passing gas .She had a large BM yesterday . 2. edema is decreased 3. hair loss , she is iron deficient 4. asthma , will add Singulair and check CXR 5. anemia , she started oral iron . Problems: Consultation Date/Type/Reason Admit Date/Time Nov 09, 2016 at 12:08 24 HR Interval Summary Free Text/Dictation She had a BM last night . She is feeling better . Constitutional: improved, no complaints Exam/Review of Systems Vital Signs Vitals Vital Signs Date Time Temp Pulse Resp B/P Pulse Ox O2 Delivery O2 Flow Rate FiO2 11/16/16 08:00 97.6 67 18 102/59 98 Intake and Output 11/15/16 11/15/16 11/16/16 15:00 23:00 07:00 Intake Total 1200 ml 1300 ml Output Total 1100 ml 1200 ml Balance 100 ml 100 ml Exam Constitutional: alert, oriented, well developed Respiratory: clear to auscultation, normal air movement Cardiovascular: nl pulses, regular rate and rhythm Gastrointestinal: soft, tender Musculoskeletal: nl extremities to inspection Results Result Diagram: 11/15/16 0410 11/15/16 0410 Medications Medications Current Medications Ondansetron HCl (Zofran Inj) 4 mg Q6H PRN IV NAUSEA AND/OR VOMITING; Start 11/09 at 12:00 Enoxaparin Sodium (Lovenox) 40 mg DAILY@07 SC Last administered on 11/16/16 05 :43; Admin Dose 40 MG; Start 11/10/16 at 07:00 Acetaminophen/ Hydrocodone Bitart ([place] (5/325)) 2 tab Q4H PRN PO Pain 6-10 Last administered on 11/15/16 14:00; Admin Dose 1 TAB; Start 11/09/16 at 12:00 Acetaminophen/ Hydrocodone Bitart ([place] (5/325)) 1 tab Q4H PRN PO Pain 1-5 Last administered on 11/16/16 05:41; Admin Dose 1 TAB; Start 11/09/16 at 12:00 Hydromorphone HCl (Dilaudid) 0.5 mg Q2H PRN IV Breakthrough PAIN; Start at 12:00 Salmeterol Xinafoate/ Fluticasone (Advair 250/50 Diskus) 1 inh BID INH Last administered on 11/16/16 08:45; Admin Dose 1 INH; Start 11/09/16 at 21:00 Levothyroxine Sodium (Synthroid) 125 mcg DAILY@06 PO Last administered on 05:40; Admin Dose 125 MCG; Start 11/10/16 at 06:00 Atorvastatin Calcium (Lipitor) 10 mg DAILY@21 PO Last administered on 20:38; Admin Dose 10 MG; Start 11/09/16 at 21:00 Pantoprazole (Protonix Tab) 40 mg BID@,18 PO Last administered on 11/16/16 05:40; Admin Dose 40 MG; Start 11/09/16 at 18:00 Eye Lubricant (Artificial Tears Oph) 2 drop QID PRN BOTH EYES DRY EYES Last administered on 11/09/16 23:14; Admin Dose 2 DROP; Start 11/09/16 at 18:30 Montelukast Sodium (Singulair) 10 mg HS PO Last administered on 11/15/16 20:38 ; Admin Dose 10 MG; Start 11/12/16 at 21:00 Ferrous Gluconate (Fergon) 325 mg BID PO Last administered on 11/16/16 08:44; Admin Dose 325 MG; Start 11/13/16 at 14:00 Senna/Docusate Sodium (Senokot-S) 2 tab BID PRN PO constipation Last administered on 11/15/16 08:51; Admin Dose 2 TAB; Start 11/14/16 at 14:30 ANNIE STOUT MD Nov 16, 2016 09:53
[2016-11-16] MEDS: SENNA/DOCUSATE NA (8.6MG/50MG) TAB PO PRN (10:33)
[2016-11-16 19:17] VITALS: BP 104/58; RESP 20
[2016-11-16] MEDS: MONTELUKAST 10 MG TAB PO SCH (20:44)
[2016-11-16] MEDS: ATORVASTATIN 10 MG TAB PO SCH (20:44)
--- NOTE | 2016-11-16 22:39 | PN ---
Date/Time of Note Date/Time of Note DATE: 11/16/16 TIME: 22:37 Assessment/Plan Lines/Catheters IV Catheter Type (from [facility]): Saline Lock [place] in Place (from [facility]): No Assessment/Plan Chief Complaint/Hosp Course 1. Paralytic ileus. Resolved -oob/ambulate -diet -dc planning 2. Hx of gastric bypass for morbid obesity -judicious hydration -vitamin and mineral replenishments 3. BMI 31 -eventual diet optimization -eventual exercise optimization 4. Hypothyroidism -replete hormone 5. Osteoporosis -medical optimization 6. Anemia, stable -monitor -hold iron till ileus resolved 7. Hypoalbuminemia -eventual nutritional optimization Thank you, Problems: Subjective 24 Hr Interval Summary No f/c. No n/v. Min pain. Flatus and bm. No cp/sob. No cough. No bolden/dizzy/ visual or neuro changes. No dysuria. Exam/Review of Systems Vital Signs Vitals Vital Signs Date Time Temp Pulse Resp B/P Pulse Ox O2 Delivery O2 Flow Rate FiO2 11/16/16 19:17 98.1 59 20 104/58 97 Intake and Output 11/15/16 11/15/16 11/16/16 15:00 23:00 07:00 Intake Total 1200 ml 1300 ml Output Total 1100 ml 1200 ml Balance 100 ml 100 ml Exam Free Text/Dictation Constitutional: alert, obese, oriented, No distress Psych: nl mood/affect, No anxiety, No confusion Head: atraumatic, normocephalic Eyes: EOMI, PERRL, nl conjunctiva, No icteric ENMT: mucosa pink and moist, nl external ears & nose Neck: non-tender, supple, No jvd Respiratory: normal air movement, No congested cough Cardiovascular: regular rate and rhythm, No edema Gastrointestinal: soft, tender (min), No distended, No rebound or guarding Musculoskeletal: nl extremities to inspection, nl gait and stance, No joint tenderness Extremities: normal pulses, No calf tenderness, No cyanosis Neurological: nl mental status, nl speech, nl strength Skin: nl turgor, No diaphoresis, No rash or lesions Lymph: nl lymph nodes Results Result Diagram: 11/15/16 0410 11/15/16 0410 SURY WALTERS MD Nov 16, 2016 22:39
[2016-11-17] MEDS: HYDROCODONE/APAP (5/325) TAB PO PRN ×3 (00:13→09:16)
[2016-11-17] MEDS: PANTOPRAZOLE (EC) 40 MG TAB PO SCH (06:23)
[2016-11-17] MEDS: LEVOTHYROXINE 125 MCG TAB PO SCH (06:24)
[2016-11-17] MEDS: ENOXAPARIN 40 MG/0.4 ML SYG SC SCH (06:27)
[2016-11-17 07:18] VITALS: BP 103/65; RESP 19
[2016-11-17] MEDS: FERROUS GLUCONATE (EC) 325 MG TAB PO SCH (08:16)
[2016-11-17] MEDS: SALMETEROL/FLUTICASONE 250/50 INHA INH SCH (08:16)
--- NOTE | 2016-11-17 08:50 | DS ---
Date/Time of Note Date/Time of Note DATE: 11/17/16 TIME: 08:39 Discharge Summary Admission/Discharge Info Admit Date/Time Nov 09, 2016 at 12:08 Discharge Date/Time November 15, 9AM Final Diagnosis Paralytic ileus; s/p 11/09 ex-lap and LIZ Patient Condition: Good Consults Internal Medicine - Dr. Goyal Procedures 11/09 ex-lap and LIZ by Dr. Joshua Hx of Present Illness 71yo woman who was recently admitted in Sep for SBO and required NG tube with slow return to bowel function. Due to continued pain, she followed up with surgery as outpatient and was planned for ex-lap. Of note, she also had an EGD on 10/10 and noted to have dilated esophagus with narrowing of lower esophageal sphincter. She does have hx of gastric bypass. Hospital Course She presented for planned ex-lap and underwent 11/09 ex-lap with LIZ. 1. Paralytic ileus - resolved and will continue on monitored diet and follow up with surgery as outpatient. She had NG removed a few days prior to dc and had large BM evening prior to DC. Still with mild lower abd pain. 2. Hx of gastric bypass for morbid obesity -vitamin and mineral replenishments 3. BMI 31 Encourage weight loss 4. Hypothyroidism - levothyroxine 5. Osteoporosis - Vit D and calcium 6. Anemia, chronic, iron deficiency - Hold on po iron until seen as outpatient to help avoid return of paralytic ileus 7. Hypoalbuminemia - Consider outpatient shaft tender eval; outpatient monitoring 8. Asthma, mild intermittent - Continue home regimen Meds on DC: Senna BID PRN Ferrous gluconate 325mg po BID - to hold until seen as outpatient in follow up Singulair 10mg po qday Synthroid 125mcg po qAM Advair 250/50 inh BID Lipitor 10mg po qhs Artificial tears PRN Protonix 40mg po BID ASA 81mg po qday New meds - [place] 5/325mg po TID PRN pain Home Meds Reported Medications Cranberry (Cranberry) 400 Mg Capsule, 400 MG PO EVERY THREE DAYS 04/09/12 Aspirin (Aspirin) 81 Mg Tablet, 81 MG PO DAILY 04/09/12 Olopatadine* (Patanase* Nasal) 30.5 Gm [place].pump, 30.5 GM NS BID 04/09/12 Lactulose (Lactulose) 10 G/15 Ml Solution, 10 G PO BID 04/09/12 Fluticasone/Salmeterol (Advair 250-50 Diskus) 1 Disk W/Dev Disk.w.dev, 1 DISK IH BID 04/09/12 Celecoxib* (Celebrex*) 200 Mg Capsule, 200 MG PO TID 04/09/12 Lovastatin* (Lovastatin*) 10 Mg Tablet, 10 MG PO DAILY 04/09/12 Zafirlukast* (Accolate*) 20 Mg Tablet, 20 MG PO BID 04/09/12 Levothyroxine Sodium* (Levothyroxine Sodium*) 125 Mcg Tablet, 125 MCG PO DAILY 04/09/12 Follow-up Plan Follow up with Dr. Joshua in approximately two weeks and Dr. Rider after that Copies To: CC: ANNIE STOUT MD; SURY JOSHUA MD, LOWELL Nov 17, 2016 08:50
--- NOTE | 2016-11-17 08:55 | PDOCDIS ---
Discharge Instructions DIAGNOSIS Discharge Diagnosis: Paralytic ileus CONDITION Patient Condition: Good HOME CARE INSTRUCTIONS: Diet Instructions: RegularSpecial Diet: low residue, bland diet ACTIVITY: Activity Restrictions: Slowly Increase Activity Rest between Activity Avoid heavy lifting Do not operate Machinery Do not operate Power Tool Avoid Heavy Housework Bathing Restrictions: ShowerActivity Restrictions Comment: Dr. Joshua in 2 weeks, Dr. Rider in 2-4 weeks OTHER ORDERS: Other Orders: Wait to resume iron pills until seen by general surgery SILVANA MCCOY Nov 17, 2016 08:55
[2016-11-17] MEDS ORDERED: FERGON PO (08:57)
[2016-11-17] MEDS ORDERED: HYDR-3498 PO (08:58)
--- NOTE | 2016-11-17 14:30 | PN ---
Date/Time of Note Date/Time of Note DATE: 11/17/16 TIME: 14:29 Assessment/Plan Lines/Catheters IV Catheter Type (from [facility]): Saline Lock [place] in Place (from [facility]): No Assessment/Plan Chief Complaint/Hosp Course 1. Paralytic ileus. Resolved -oob/ambulate -diet -dc planning 2. Hx of gastric bypass for morbid obesity -judicious hydration -vitamin and mineral replenishments 3. BMI 31 -eventual diet optimization -eventual exercise optimization 4. Hypothyroidism -replete hormone 5. Osteoporosis -medical optimization 6. Anemia, stable -monitor -hold iron till ileus resolved 7. Hypoalbuminemia -eventual nutritional optimization Thank you, Problems: Subjective 24 Hr Interval Summary No f/c. No n/v. Min pain. Flatus and bm. No cp/sob. No cough. No bolden/dizzy/ visual or neuro changes. No dysuria. Exam/Review of Systems Vital Signs Vitals Vital Signs Date Time Temp Pulse Resp B/P Pulse Ox O2 Delivery O2 Flow Rate FiO2 11/17/16 07:18 98.2 68 19 103/65 97 Intake and Output 11/16/16 11/16/16 11/17/16 15:00 23:00 07:00 Intake Total 840 ml 1000 ml Output Total 1100 ml 1180 ml Balance -260 ml -180 ml Exam Free Text/Dictation Constitutional: alert, obese, oriented, No distress Psych: nl mood/affect, No anxiety, No confusion Head: atraumatic, normocephalic Eyes: EOMI, PERRL, nl conjunctiva, No icteric ENMT: mucosa pink and moist, nl external ears & nose Neck: non-tender, supple, No jvd Respiratory: normal air movement, No congested cough Cardiovascular: regular rate and rhythm, No edema Gastrointestinal: soft, tender (min), No distended, No rebound or guarding Musculoskeletal: nl extremities to inspection, nl gait and stance, No joint tenderness Extremities: normal pulses, No calf tenderness, No cyanosis Neurological: nl mental status, nl speech, nl strength Skin: nl turgor, No diaphoresis, No rash or lesions Lymph: nl lymph nodes Results Result Diagram: 11/15/16 0410 11/15/16 0410 SURY WALTERS MD Nov 17, 2016 14:29
== END 2016-11-17 11:00 | disposition home or self-care (01) | DRG 336 ==
LOC: SDS 05:45 → REC 12:08 → MS1 12:50
PROVIDERS: ADMIT Surgery; ATTEND Surgery
PROC: 0DN84ZZ Release Small Intestine, Percutaneous Endoscopic Approach (ICD-10-PCS; 2016-11-09)
PROC: 0WUF4JZ Supplement Abdominal Wall with Synthetic Substitute, Percutaneous Endoscopic Approach (ICD-10-PCS; 2016-11-09)
PROC: 0WPF4JZ Removal of Synthetic Substitute from Abdominal Wall, Percutaneous Endoscopic Approach (ICD-10-PCS; principal; 2016-11-09 08:00)
DX: K91.3 Postprocedural intestinal obstruction (principal); K56.0 Paralytic ileus; E88.09 Other disorders of plasma-protein metabolism, not elsewhere classified; K43.9 Ventral hernia without obstruction or gangrene; K57.30 Diverticulosis of large intestine without perforation or abscess without bleeding; Z98.84 Bariatric surgery status; E03.9 Hypothyroidism, unspecified; K21.9 Gastro-esophageal reflux disease without esophagitis
CPT/HCPCS: 71020; 80048; 80053; 82728; 83540; 83735; 84100; 84443; 85025; 88304; J0330; J0690; J1100; J1170; J1650; J1885; J2250; J2405; J2710; J2765; J3010; J3480; J7042; J7120; Q4166

== ENCOUNTER → 2017-10-14 | Outpatient (CLI) | END | disposition home or self-care (01) ==